=== PATIENT | male | born 1950 | race Caucasian/White ===

== ENCOUNTER 2018-01-29 12:51 | Inpatient (IN) | payer MEDICARE, MEDICAID ==
[~2018-01-29] VITALS: Ht 175.3 cm; Wt 77.6 kg
[2018-01-29] VITALS (33 sets, daily range): BP systolic 119–170; BP diastolic 68–98
[2018-01-29] MEDS ORDERED: MIDAZOLAM HCL 5 MG/ML-1ML VIAL ONE (12:59)
[2018-01-29] MEDS ORDERED: SODIUM CHLORIDE 0.9% 1,000 ML IV ONE (13:01)
[2018-01-29] MEDS ORDERED: PROPOFOL 100 ML IV ONE (13:10)
[2018-01-29] MEDS: PROPOFOL 100 ML IV SCH ×2 (13:14→22:15)
[2018-01-29 13:33] LABS: Basophils # (auto) 0 uL; Basophils % (auto) 0.2 % (0.0-2.0); Eosinophils # (auto) 0 uL; Eosinophils % (auto) 0.2 % (0.0-7.0); Hematocrit 48.4 % (41.0-53.0); Hemoglobin 16.1 g/dL (13.5-17.5); Lymphocytes # (auto) 1.7 uL; Lymphocytes % (auto) 15.9 % (10.0-50.0); Mean Corpuscular Hemoglobin 32.4 pg (28.0-32.0); Mean Corpuscular Hgb Conc. 33.3 g/dL (32.0-36.0); Mean Corpuscular Volume 97.3 fL (80.0-100.0); Monocytes # (auto) 0.7 uL; Monocytes % (auto) 6.9 % (0.0-12.0); Neutrophils # (auto) 8.1 uL; Neutrophils % (auto) 76.8 % (37.0-80.0); Nucleated Red Blood Cells % 0.2 %; Platelet Count (auto) 285 10^3/uL (140-450); Red Blood Cells 4.97 10^6/uL (4.5-5.90); Red Cell Distribution Width 16.1 % (11.8-14.3); White Blood Cell 10.6 10^3/uL (4.4-10.8)
[2018-01-29 13:56] LABS: Albumin 3.8 g/dL (3.4-5.0); Anion Gap 13 (5-15); Blood Urea Nitrogen 57 mg/dL (7-18); Calcium 9.2 mg/dL (8.5-10.1); Carbon Dioxide 33 mmol/L (21-32); Chloride 91 mmol/L (98-107); Glucose 126 mg/dL (74-106); Magnesium 3.5 mg/dL (1.6-2.6); Potassium 5.1 mmol/L (3.5-5.1); Sodium 137 mmol/L (136-145)
[2018-01-29 14:08] LABS: Alanine Aminotransferase 15 U/L (16-61); Alkaline Phosphatase 133 U/L (45-117); Aspartate Aminotransferase < 3 U/L (15-37); Bilirubin, Total 0.6 mg/dL (0.2-1.0); GFR African American 7 mL/min; GFR Non-African American 6 mL/min; Total Protein 8.1 g/dL (6.4-8.2)
[2018-01-29] MEDS ORDERED: MIDAZOLAM HCL 5 MG/ML-1ML VIAL IV ONE ×2 (15:38→15:45)
[2018-01-29] MEDS ORDERED: ALBUTEROL SULF 2.5 MG/0.5ML(0.5%) NEB SOLN NEB PRN (15:45)
[2018-01-29] MEDS ORDERED: LABETALOL HCL 5 MG/ML ML 20ML VIAL IV PRN (15:45)
[2018-01-29] MEDS ORDERED: LORazepam 2MG/ML-1ML VIAL IV PRN (15:45)
[2018-01-29] MEDS ORDERED: MORPHINE SULFATE 4 MG/ML SYR/VIAL IV PRN ×3 (15:45)
[2018-01-29] MEDS ORDERED: NITROGLYCERIN 0.4 MG SL TAB SL PRN (15:45)
[2018-01-29] MEDS ORDERED: DEXTROSE (50%) 50ML SYRG IV PRN (15:45)
[2018-01-29] MEDS: METOPROLOL TARTRATE 25 MG TAB NG SCH ×2 (15:45→22:15)
[2018-01-29] MEDS ORDERED: SODIUM CHL 0.9% 1000 ML BAG XX ONE (16:30)
[2018-01-29 16:35] LABS: INR 0.93 (0.9-1.15); Partial Thromboplastin Time 27.4 sec (23.78-33.04)
[2018-01-29 17:03] LABS: CRP High Sensitivity 2.96 mg/dL (< 0.3)
[2018-01-29] MEDS: InsuLIN REG 1unit/0.01ml Soln (100units/ml) SC SCH (18:00)
[2018-01-29] MEDS: IPRATROPIUM BROM 0.5 MG/2.5ML INH SOL NEB SCH (18:13)
[2018-01-29] MEDS: ALBUTEROL SULF 2.5 MG/0.5ML(0.5%) NEB SOLN NEB SCH (18:13)
[2018-01-29] MEDS ORDERED: VANCOMYCIN PER PHARMACY 0 MG IV SCH (20:00)
[2018-01-29] MEDS ORDERED: PIPERACILLIN-TAZOB 2.25GM 50 ML IV ONE (20:00)
[2018-01-29] MEDS: ACCU-CHEK COMFORT CURVE STRIP VI SCH (20:23)
[2018-01-29] MEDS ORDERED: CLINDAMYCIN 600MG IV 50 ML IV SCH (22:00)
[2018-01-29] MEDS ORDERED: VANCOMYCIN 1GM/250ML 250 ML IV ONE (22:00)
[2018-01-29] MEDS: ATORVASTATIN 20 MG TAB NG SCH (22:15)
[2018-01-30] VITALS (103 sets, daily range): BP systolic 105–159; BP diastolic 46–114
[2018-01-30] MEDS: IPRATROPIUM BROM 0.5 MG/2.5ML INH SOL NEB SCH ×4 (00:20→18:36)
[2018-01-30] MEDS: ALBUTEROL SULF 2.5 MG/0.5ML(0.5%) NEB SOLN NEB SCH ×4 (00:20→18:36)
[2018-01-30] MEDS: InsuLIN REG 1unit/0.01ml Soln (100units/ml) SC SCH ×4 (00:27→18:03)
[2018-01-30] MEDS: ACCU-CHEK COMFORT CURVE STRIP VI SCH ×4 (00:27→18:03)
[2018-01-30 04:11] LABS: Basophils # (auto) 0 uL; Basophils % (auto) 0.3 % (0.0-2.0); Eosinophils # (auto) 0.1 uL; Eosinophils % (auto) 1.2 % (0.0-7.0); Hematocrit 44.6 % (41.0-53.0); Hemoglobin 15.1 g/dL (13.5-17.5); Lymphocytes # (auto) 1.3 uL; Lymphocytes % (auto) 14.9 % (10.0-50.0); Mean Corpuscular Hemoglobin 33.1 pg (28.0-32.0); Mean Corpuscular Hgb Conc. 33.8 g/dL (32.0-36.0); Mean Corpuscular Volume 97.8 fL (80.0-100.0); Monocytes # (auto) 0.9 uL; Monocytes % (auto) 10.5 % (0.0-12.0); Neutrophils # (auto) 6.5 uL; Neutrophils % (auto) 73.1 % (37.0-80.0); Platelet Count (auto) 237 10^3/uL (140-450); Red Blood Cells 4.56 10^6/uL (4.5-5.90); Red Cell Distribution Width 16.6 % (11.8-14.3); White Blood Cell 8.9 10^3/uL (4.4-10.8)
[2018-01-30 04:31] LABS: Potassium 4.7 mmol/L (3.5-5.1)
[2018-01-30 04:40] LABS: Albumin 3.1 g/dL (3.4-5.0); BUN/Creatinine Ratio 6.1; Bilirubin, Total 0.7 mg/dL (0.2-1.0); Calcium 8.9 mg/dL (8.5-10.1); Total Protein 7.3 g/dL (6.4-8.2)
[2018-01-30] MEDS ORDERED: PIPERACILLIN-TAZOB 0.75 GM in D5W 5% 50 ML IV PRN (09:15)
[2018-01-30] MEDS ORDERED: NITROGLYCERIN 0.2MG/HR TOPICAL PATCH TD SCH (10:00)
[2018-01-30] MEDS ORDERED: AZITHROMYCIN 500MG/ 250ML 250 ML IV SCH (10:00)
[2018-01-30] MEDS: METOPROLOL TARTRATE 25 MG TAB NG SCH ×2 (10:00→21:31)
[2018-01-30] MEDS ORDERED: B-CO1CAP6 PO (10:56)
[2018-01-30] MEDS ORDERED: MIDO5TAB PO (10:56)
[2018-01-30] MEDS ORDERED: SERT-274 PO (10:56)
[2018-01-30] MEDS ORDERED: SEVE800T8 PO ×2 (10:57)
[2018-01-30] MEDS: PIPERACILLIN-TAZOB 2.25GM 50 ML IV SCH (12:00)
[2018-01-30] MEDS: ENOXAPARIN SOD 30 MG/0.3 ML SYRINGE SC SCH (12:33)
[2018-01-30] MEDS: ASPirin 81 mg TAB NG SCH (12:33)
[2018-01-30] MEDS: PANTOPRAZOLE 40 MG/10 ML VIAL IV SCH (12:33)
[2018-01-30] MEDS ORDERED: VANCOMYCIN 750 MG in D5W 5% 250 ML IV ONE (13:30)
[2018-01-30] MEDS ORDERED: Nepro With Carb Steady 1 Liter Bottle GT SCH (13:45)
[2018-01-30] MEDS: ATORVASTATIN 20 MG TAB NG SCH (21:31)
[2018-01-31] VITALS (102 sets, daily range): BP systolic 78–134; BP diastolic 35–78
[2018-01-31] MEDS: IPRATROPIUM BROM 0.5 MG/2.5ML INH SOL NEB SCH ×4 (00:21→18:21)
[2018-01-31] MEDS: ALBUTEROL SULF 2.5 MG/0.5ML(0.5%) NEB SOLN NEB SCH ×4 (00:21→18:21)
[2018-01-31] MEDS: PIPERACILLIN-TAZOB 2.25GM 50 ML IV SCH ×2 (00:22→12:37)
[2018-01-31] MEDS: InsuLIN REG 1unit/0.01ml Soln (100units/ml) SC SCH ×4 (00:22→18:00)
[2018-01-31] MEDS: ACCU-CHEK COMFORT CURVE STRIP VI SCH ×4 (00:22→18:00)
[2018-01-31 03:55] LABS: Basophils # (auto) 0 uL; Basophils % (auto) 0.4 % (0.0-2.0); Eosinophils # (auto) 0 uL; Eosinophils % (auto) 0.1 % (0.0-7.0); Hematocrit 44.1 % (41.0-53.0); Hemoglobin 14.8 g/dL (13.5-17.5); Lymphocytes % (auto) 9.6 % (10.0-50.0); Mean Corpuscular Hemoglobin 32.6 pg (28.0-32.0); Mean Corpuscular Hgb Conc. 33.4 g/dL (32.0-36.0); Mean Corpuscular Volume 97.5 fL (80.0-100.0); Monocytes # (auto) 0.8 uL; Monocytes % (auto) 8.3 % (0.0-12.0); Neutrophils # (auto) 8.3 uL; Neutrophils % (auto) 81.6 % (37.0-80.0); Platelet Count (auto) 180 10^3/uL (140-450); Red Blood Cells 4.53 10^6/uL (4.5-5.90); Red Cell Distribution Width 16.5 % (11.8-14.3); White Blood Cell 10.2 10^3/uL (4.4-10.8)
[2018-01-31 04:12] LABS: BUN/Creatinine Ratio 5.3; Calcium 8.7 mg/dL (8.5-10.1); Potassium 4.7 mmol/L (3.5-5.1)
[2018-01-31] MEDS: PROPOFOL 100 ML IV SCH ×2 (04:30→17:29)
[2018-01-31] MEDS: ENOXAPARIN SOD 30 MG/0.3 ML SYRINGE SC SCH (10:00)
[2018-01-31] MEDS: ASPirin 81 mg TAB NG SCH (10:00)
[2018-01-31] MEDS: METOPROLOL TARTRATE 25 MG TAB NG SCH (10:00)
[2018-01-31] MEDS: PANTOPRAZOLE 40 MG/10 ML VIAL IV SCH (10:50)
[2018-01-31] MEDS: ATORVASTATIN 20 MG TAB NG SCH (22:19)
[2018-02-01] VITALS (75 sets, daily range): BP systolic 89–162; BP diastolic 28–103
[2018-02-01] MEDS: ALBUTEROL SULF 2.5 MG/0.5ML(0.5%) NEB SOLN NEB SCH ×3 (00:25→18:50)
[2018-02-01] MEDS: IPRATROPIUM BROM 0.5 MG/2.5ML INH SOL NEB SCH ×3 (00:25→18:50)
[2018-02-01] MEDS: PIPERACILLIN-TAZOB 2.25GM 50 ML IV SCH ×2 (00:35→12:04)
[2018-02-01] MEDS: InsuLIN REG 1unit/0.01ml Soln (100units/ml) SC SCH ×4 (00:45→18:00)
[2018-02-01] MEDS: ACCU-CHEK COMFORT CURVE STRIP VI SCH ×4 (00:45→18:00)
[2018-02-01 05:02] LABS: Calcium 8.5 mg/dL (8.5-10.1)
[2018-02-01 05:04] LABS: BUN/Creatinine Ratio 6.2
[2018-02-01] MEDS: PANTOPRAZOLE 40 MG/10 ML VIAL IV SCH (10:29)
[2018-02-01] MEDS: ASPirin 81 mg TAB NG SCH (10:30)
[2018-02-01] MEDS: ENOXAPARIN SOD 30 MG/0.3 ML SYRINGE SC SCH (10:30)
[2018-02-01] MEDS ORDERED: SODIUM CHL 0.9% 1000 ML BAG XX ONE (11:00)
[2018-02-01] MEDS ORDERED: EPOETIN ALFA 10,000 UNIT/1 ML VIAL IV ONE (11:00)
[2018-02-01] MEDS ORDERED: SERTRALINE HCL 50 MG TAB PO SCH ×2 (14:30→22:00)
[2018-02-01] MEDS: ATORVASTATIN 20 MG TAB NG SCH (21:38)
[2018-02-02] VITALS (71 sets, daily range): BP systolic 84–156; BP diastolic 25–94
[2018-02-02] MEDS: ALBUTEROL SULF 2.5 MG/0.5ML(0.5%) NEB SOLN NEB SCH ×4 (00:34→19:47)
[2018-02-02] MEDS: IPRATROPIUM BROM 0.5 MG/2.5ML INH SOL NEB SCH ×4 (00:34→19:47)
[2018-02-02 04:16] LABS: Basophils # (auto) 0 uL; Basophils % (auto) 0.5 % (0.0-2.0); Eosinophils # (auto) 0.1 uL; Eosinophils % (auto) 1.5 % (0.0-7.0); Lymphocytes # (auto) 1.2 uL; Lymphocytes % (auto) 14.3 % (10.0-50.0); Mean Corpuscular Hemoglobin 32.6 pg (28.0-32.0); Mean Corpuscular Hgb Conc. 33.3 g/dL (32.0-36.0); Mean Corpuscular Volume 97.8 fL (80.0-100.0); Monocytes # (auto) 0.8 uL; Monocytes % (auto) 9.5 % (0.0-12.0); Neutrophils # (auto) 6.1 uL; Neutrophils % (auto) 74.2 % (37.0-80.0); Platelet Count (auto) 185 10^3/uL (140-450); Red Blood Cells 4.29 10^6/uL (4.5-5.90); Red Cell Distribution Width 16.2 % (11.8-14.3); White Blood Cell 8.2 10^3/uL (4.4-10.8)
[2018-02-02 04:33] LABS: Calcium 9.3 mg/dL (8.5-10.1); Potassium 4.4 mmol/L (3.5-5.1)
[2018-02-02 04:35] LABS: BUN/Creatinine Ratio 6.2
[2018-02-02] MEDS: InsuLIN REG 1unit/0.01ml Soln (100units/ml) SC SCH ×4 (05:47→17:38)
[2018-02-02] MEDS: ACCU-CHEK COMFORT CURVE STRIP VI SCH ×4 (05:47→17:37)
[2018-02-02] MEDS: ASPirin 81 mg TAB NG SCH (10:00)
[2018-02-02] MEDS: ENOXAPARIN SOD 30 MG/0.3 ML SYRINGE SC SCH (10:00)
[2018-02-02] MEDS: PANTOPRAZOLE 40 MG/10 ML VIAL IV SCH (10:41)
[2018-02-02] MEDS: PIPERACILLIN-TAZOB 2.25GM 50 ML IV SCH ×2 (12:00)
[2018-02-02] MEDS: SERTRALINE HCL 50 MG TAB PO SCH (21:58)
[2018-02-02] MEDS: ATORVASTATIN 20 MG TAB NG SCH (21:58)
[2018-02-03] VITALS (14 sets, daily range): BP systolic 81–154; BP diastolic 41–104
[2018-02-03] MEDS: PIPERACILLIN-TAZOB 2.25GM 50 ML IV SCH
[2018-02-03] MEDS: ALBUTEROL SULF 2.5 MG/0.5ML(0.5%) NEB SOLN NEB SCH ×4 (00:48→19:36)
[2018-02-03] MEDS: IPRATROPIUM BROM 0.5 MG/2.5ML INH SOL NEB SCH ×4 (00:48→19:36)
[2018-02-03 04:51] LABS: BUN/Creatinine Ratio 7.6; Calcium 8.4 mg/dL (8.5-10.1)
[2018-02-03] MEDS: InsuLIN REG 1unit/0.01ml Soln (100units/ml) SC SCH ×2 (05:34)
[2018-02-03] MEDS: ACCU-CHEK COMFORT CURVE STRIP VI SCH ×2 (05:35)
[2018-02-03] MEDS: ENOXAPARIN SOD 30 MG/0.3 ML SYRINGE SC SCH (09:52)
[2018-02-03] MEDS: ASPirin 81 mg TAB NG SCH (09:52)
[2018-02-03] MEDS: PANTOPRAZOLE 40 MG/10 ML VIAL IV SCH (09:52)
[2018-02-03] MEDS ORDERED: SERTRALINE HCL 50 MG TAB PO ONE (10:00)
[2018-02-03] MEDS ORDERED: LEVOFLOXACIN 500 MG TAB PO ONE (12:30)
[2018-02-03] MEDS: ATORVASTATIN 20 MG TAB NG SCH (22:00)
[2018-02-03] MEDS: SERTRALINE HCL 50 MG TAB PO SCH (22:00)
[2018-02-04] MEDS: IPRATROPIUM BROM 0.5 MG/2.5ML INH SOL NEB SCH ×3 (00:24→12:22)
[2018-02-04] MEDS: ALBUTEROL SULF 2.5 MG/0.5ML(0.5%) NEB SOLN NEB SCH ×3 (00:24→12:22)
[2018-02-04 05:00] VITALS: BP 127/64
[2018-02-04] MEDS ORDERED: SODIUM CHL 0.9% 1000 ML BAG XX ONE (08:00)
[2018-02-04 09:00] VITALS: BP 166/83
[2018-02-04 09:54] VITALS: BP 162/81
[2018-02-04] MEDS ORDERED: LEVOFLOXACIN 250 MG TAB PO SCH (10:00)
[2018-02-04] MEDS: ASPirin 81 mg TAB NG SCH (10:59)
[2018-02-04 13:00] VITALS: BP 124/67
[2018-02-04 15:59] VITALS: BP 110/81
[2018-02-04 17:50] VITALS: BP 110/81
== END 2018-02-04 18:05 | disposition home or self-care (01) | DRG 208 ==
LOC: ER 12:56 → EDBD 12:56 → OVERFLOW 15:40 → ICU WEST 16:52 → TELE-WESTW 02-03 05:00
PROVIDERS: ADMIT Internal Medicine; ATTEND Internal Medicine
PROC: 0BH17EZ Insertion of Endotracheal Airway into Trachea, Via Natural or Artificial Opening (ICD-10-PCS; principal; 2018-01-29)
PROC: 5A1945Z Respiratory Ventilation, 24-96 Consecutive Hours (ICD-10-PCS; 2018-01-29)
PROC: 5A1D70Z Performance of Urinary Filtration, Intermittent, Less than 6 Hours Per Day (ICD-10-PCS; 2018-01-30)
PROC: 5A1D70Z Performance of Urinary Filtration, Intermittent, Less than 6 Hours Per Day (ICD-10-PCS; 2018-02-01)
PROC: 5A1D70Z Performance of Urinary Filtration, Intermittent, Less than 6 Hours Per Day (ICD-10-PCS; 2018-02-04)
DX: J96.00 Acute respiratory failure, unspecified whether with hypoxia or hypercapnia (principal); J18.9 Pneumonia, unspecified organism; N18.6 End stage renal disease; G92 Toxic encephalopathy; J15.6 Pneumonia due to other Gram-negative bacteria; G93.1 Anoxic brain damage, not elsewhere classified; I13.11 Hypertensive heart and chronic kidney disease without heart failure, with stage 5 chronic kidney disease, or end stage renal disease; E87.5 Hyperkalemia; Z99.2 Dependence on renal dialysis; I16.0 Hypertensive urgency; E11.22 Type 2 diabetes mellitus with diabetic chronic kidney disease; E11.40 Type 2 diabetes mellitus with diabetic neuropathy, unspecified; F03.90 Unspecified dementia, unspecified severity, without behavioral disturbance, psychotic disturbance, mood disturbance, and anxiety; Z80.0 Family history of malignant neoplasm of digestive organs; Z80.1 Family history of malignant neoplasm of trachea, bronchus and lung; Z80.42 Family history of malignant neoplasm of prostate; Z80.7 Family history of other malignant neoplasms of lymphoid, hematopoietic and related tissues; Z82.49 Family history of ischemic heart disease and other diseases of the circulatory system; Z86.74 Personal history of sudden cardiac arrest; Z83.3 Family history of diabetes mellitus; Z89.022 Acquired absence of left finger(s); Z89.021 Acquired absence of right finger(s)
CPT/HCPCS: 36415; 36600; 70450; 71045; 71046; 80048; 80053; 80061; 80202; 82550; 82805; 82962; 83036; 83735; 83880; 84443; 84484; 85025; 85610; 85652; 85730; 86141; 87040; 87070; 87077; 87081; 87186; 87205; 87804; 90935; 93005; 94002; 94003; 94640; 95819; 96365; 96367; 96375; 97163; A4565; A6257; C9113; G0378; J0885; J1642; J1815; J2250; J2543; J2704; J7060

== ENCOUNTER 2019-03-21 14:01 | Emergency (ER) | payer MEDICARE, MEDICAID ==
[~2019-03-21] VITALS: Ht 170.2 cm; Wt 77.1 kg
[~2019-03-21 14:01] MED LIST: B-CO1CAP6 PO; MIDO5TAB2 PO; SERT-274 PO; SEVE800T8 PO
[2019-03-21 14:09] VITALS: BP 134/76
== END 2019-03-21 17:52 | disposition home or self-care (01) ==
LOC: EDBD 14:01 → EDUNIT# 14:01 → ER 14:01
DX: S01.81XA Laceration without foreign body of other part of head, initial encounter (principal); S80.212A Abrasion, left knee, initial encounter; W01.0XXA Fall on same level from slipping, tripping and stumbling without subsequent striking against object, initial encounter; Y93.89 Activity, other specified; Y92.89 Other specified places as the place of occurrence of the external cause; Y99.8 Other external cause status
CPT/HCPCS: 12013; 70450; 93005

== ENCOUNTER 2019-07-09 12:45 | Inpatient (IN) | payer MEDICARE, MEDICAID, SELFPAY ==
[~2019-07-09] VITALS: Ht 170.2 cm; Wt 77.1 kg
[~2019-07-09 12:45] MED LIST changes: +AML5T PO; +CAR125T PO; +CLO01T PO; -MIDO5TAB2 PO
[2019-07-09 13:48] LABS: Basophils # (auto) 0 10 ^3/uL (0-0.2); Basophils % (auto) 0.5 % (0.0-2.0); Eosinophils # (auto) 0.1 10 ^3/uL (0-0.8); Eosinophils % (auto) 0.9 % (0.0-7.0); Hematocrit 33.5 % (41.0-53.0); Hemoglobin 11.7 g/dL (13.5-17.5); Lymphocytes # (auto) 0.9 10 ^3/uL (0.4-5.4); Lymphocytes % (auto) 10.5 % (10.0-50.0); Mean Corpuscular Hemoglobin 32.5 pg (28.0-32.0); Mean Corpuscular Hgb Conc. 34.9 g/dL (32.0-36.0); Mean Corpuscular Volume 93.3 fL (80.0-100.0); Monocytes # (auto) 0.5 10 ^3/uL (0-1.3); Monocytes % (auto) 5.6 % (0.0-12.0); Neutrophils % (auto) 82.5 % (37.0-80.0); Platelet Count (auto) 193 10^3/uL (140-450); Red Blood Cells 3.59 10^6/uL (4.5-5.90); White Blood Cell 8.5 10^3/uL (4.4-10.8)
[2019-07-09] MEDS ORDERED: FUROSEMIDE 40 MG/4 ML VIAL IV ONE (14:00)
[2019-07-09 14:05] LABS: Albumin 3.9 g/dL (3.4-5.0); Anion Gap 8 (5-15); Blood Urea Nitrogen 35 mg/dL (7-18); Calcium 9.3 mg/dL (8.5-10.1); Carbon Dioxide 31 mmol/L (21-32); Chloride 95 mmol/L (98-107); Glucose 110 mg/dL (74-106); Magnesium 2.4 mg/dL (1.6-2.6); Potassium 4.1 mmol/L (3.5-5.1); Sodium 134 mmol/L (136-145)
[2019-07-09 14:11] LABS: Alanine Aminotransferase 13 U/L (16-61); Alkaline Phosphatase 76 U/L (45-117); Aspartate Aminotransferase 7 U/L (15-37); BUN/Creatinine Ratio 6.2; Bilirubin, Total 0.6 mg/dL (0.2-1.0); GFR African American 13 mL/min; GFR Non-African American 11 mL/min; Total Protein 7.6 g/dL (6.4-8.2)
[2019-07-09] MEDS ORDERED: LACTULOSE 20Gm/30ML SOLN PO PRN (14:30)
[2019-07-09] MEDS ORDERED: MORPHINE SULF INJ 2 MG/ML SYRINGE 1ML IV PRN (14:30)
[2019-07-09] MEDS ORDERED: PROMETHAZINE HCL 25 MG/ML 1ML IV PRN (14:30)
[2019-07-09] MEDS ORDERED: ALBUTEROL SULF 2.5 MG/0.5ML(0.5%) NEB SOLN NEB PRN (14:30)
[2019-07-09] MEDS ORDERED: traMADol HCL 50 MG TAB PO PRN (14:30)
[2019-07-09] MEDS ORDERED: ACETAMINOPHEN 500 MG TAB PO PRN (14:30)
[2019-07-09] MEDS ORDERED: DEXTROSE (50%) 50ML SYRG IV PRN (14:30)
[2019-07-09] MEDS ORDERED: NITROGLYCERIN 0.4 MG SL TAB SL PRN (14:30)
--- NOTE | 2019-07-09 15:30 | NUR ---
Telemetry admit from [facility] admitted to Telemetry unit. Patient oriented to SONIA HILL RN primary RN, unit, room, bed, and unit policies regarding patient care and visiting hours. Patient now on continuous telemetry monitoring, tele box #2. Patient placed on bedside oxygen, weighed by bedscale and encouraged to call if they need something. All questions and concerns addressed, patient verbalized understanding.
--- NOTE | 2019-07-09 16:12 | NUR ---
Vitals BP upon arrival was 176/82. Called Hospitalist operations agent and obtained order for hydralazine 10 mg IV q6h PRN for SBP >140 or DBP .90. Orders read back and verified. Will carry out new orders and cont to monitor patient.
[2019-07-09] MEDS: hydrALAZINE HCL 20 MG/ML VL IV PRN (16:26)
[2019-07-09 17:00] VITALS: BP 154/74
[2019-07-09] MEDS: InsuLIN REG 1unit/0.01ml Soln (100units/ml) SC SCH ×2 (17:00→21:53)
[2019-07-09] MEDS: ACCU-CHEK COMFORT CURVE STRIP VI SCH ×2 (17:00→21:15)
[2019-07-09 17:33] VITALS: BP 176/82
[2019-07-09] MEDS ORDERED: CITA10TA59 PO (17:59)
[2019-07-09] MEDS ORDERED: IPRATROPIUM BROM 0.5 MG/2.5ML INH SOL NEB SCH (18:00)
[2019-07-09] MEDS ORDERED: ALBUTEROL SULF 2.5 MG/0.5ML(0.5%) NEB SOLN NEB SCH (18:00)
--- NOTE | 2019-07-09 18:45 | NUR ---
MRSA Swab Patient swabbed for MRSA. Swab sent to lab
[2019-07-09] MEDS: FUROSEMIDE 40 MG/4 ML VIAL IV SCH (18:48)
[2019-07-09] MEDS: SEVELAMER 800 MG TAB PO SCH (18:48)
--- NOTE | 2019-07-09 18:51 | NUR ---
Blood Glucose Patient's 1700 BS was 69, gave patient orange juice, recheck at 1830 was 91. Patient resting in bed, no distress noted, Eating dinner at this time.
--- NOTE | 2019-07-09 19:00 | NUR ---
Patient experiencing SOB, NC not on, Placed NC on and Checked O2 Sat and patient sating at 88. Increased oxygen from 2 to 5L. Patient O2 sat now at 95%. Endorsed care to night SHAGUFTA Corley.
--- NOTE | 2019-07-09 19:26 | NUR ---
Opening Shift Note Assumed care of patient, awake and alert. No S/S of distress/SOB or pain. Bed is in lowest position and locked. Call light within reach. Board updated. Tele box number matches monitor and leads are in correct placement. Instructed on POC and to call for assist PRN, will continue to monitor for changes Q1hr and PRN.
--- NOTE | 2019-07-09 19:38 | NUR ---
Spoke to MD Gaines regarding elevated BP, tachycardia, SOB, and audible wheezing on expiration. BP is 219/116, HR: 104. Orders received: Metoprolol Succinate 50 mg PO Once, Furosemide 80 mg IV once. Orders received, verified, and placed.
[2019-07-09] MEDS ORDERED: METOPROLOL SUCCINATE XL 50 MG TAB PO ONE (19:45)
[2019-07-09] MEDS ORDERED: FUROSEMIDE 100 MG/10ML VIAL IV ONE (19:45)
[2019-07-09 21:00] VITALS: BP 174/110
[2019-07-09] MEDS: SODIUM CHLOR 0.9% PF (SALINE LOCK) 10ML VIAL/SYR IV SCH (21:13)
[2019-07-09] MEDS: FAMOTIDINE 20 MG TAB PO SCH (21:14)
[2019-07-09] MEDS: cloNIDine HCL 0.1 MG TAB PO SCH (21:14)
[2019-07-09] MEDS: CARVEDILOL 12.5 MG TAB PO SCH (21:14)
[2019-07-09] MEDS: TEMAZEPAM 15 MG CAP PO PRN (21:15)
[2019-07-09] MEDS ORDERED: ALBUTEROL SULF HFA 90MCG INH 200DOSE IN SCH (22:00)
[2019-07-10] VITALS: BP 135/73
[2019-07-10 05:00] VITALS: BP 164/82
[2019-07-10] MEDS: FUROSEMIDE 40 MG/4 ML VIAL IV SCH (06:00)
[2019-07-10] MEDS: SODIUM CHLOR 0.9% PF (SALINE LOCK) 10ML VIAL/SYR IV SCH ×3 (06:00→22:20)
[2019-07-10] MEDS: ACCU-CHEK COMFORT CURVE STRIP VI SCH ×4 (06:00→22:22)
[2019-07-10] MEDS: hydrALAZINE HCL 20 MG/ML VL IV PRN (06:01)
[2019-07-10] MEDS: InsuLIN REG 1unit/0.01ml Soln (100units/ml) SC SCH ×4 (06:44→22:22)
[2019-07-10 06:54] LABS: Potassium 5.4 mmol/L (3.5-5.1)
[2019-07-10 07:00] LABS: Albumin 3.5 g/dL (3.4-5.0); BUN/Creatinine Ratio 6.7; Bilirubin, Total 0.8 mg/dL (0.2-1.0); Calcium 9.4 mg/dL (8.5-10.1)
--- NOTE | 2019-07-10 07:30 | NUR ---
Opening Shift Note RECEIVED REPORT FROM NOC RN. Assumed care of patient, awake and alert. PATIENT ON OXYGEN AT 6 LPM VIA NON-REBREATHER WITH no S/S of distress/SOB or pain. BED IN LOWEST, LOCKED POSITION WITH SIDERAILS UP x2 AND CALL LIGHT WITHIN REACH. Instructed on POC and to call for assist PRN, will continue to monitor for changes Q1hr and PRN.
[2019-07-10] MEDS: SEVELAMER 800 MG TAB PO SCH ×3 (08:28→19:07)
[2019-07-10] MEDS ORDERED: cefTRIAXone 1GM/50ML D5W 50 ML IV SCH (09:00)
[2019-07-10 09:11] VITALS: BP 163/81
[2019-07-10] MEDS ORDERED: ENOXAPARIN SOD 30 MG/0.3 ML SYRINGE SC SCH (10:00)
[2019-07-10] MEDS ORDERED: AZITHROMYCIN 500MG/ 250ML 250 ML IV SCH (10:00)
[2019-07-10] MEDS: ENALAPRIL MALEATE 2.5 MG TAB PO SCH (10:06)
[2019-07-10] MEDS: B-COMPLEX W/ C & FOLIC ACID(NEPHROVITE TAB) PO SCH (10:06)
[2019-07-10] MEDS: cloNIDine HCL 0.1 MG TAB PO SCH ×2 (10:06→22:21)
[2019-07-10] MEDS: ASPirin 81 mg TAB PO SCH (10:06)
[2019-07-10] MEDS: CARVEDILOL 12.5 MG TAB PO SCH ×2 (10:06→22:00)
[2019-07-10] MEDS: SERTRALINE HCL 50 MG TAB PO SCH (10:07)
[2019-07-10] MEDS: amLODIPine BESYLATE 5 MG TAB PO SCH (10:07)
[2019-07-10] MEDS ORDERED: SODIUM CHL 0.9% 1000 ML BAG XX ONE (13:30)
[2019-07-10] MEDS ORDERED: predniSONE 20 MG TAB PO ONE (15:30)
[2019-07-10 15:37] VITALS: BP 144/86
[2019-07-10 18:00] VITALS: BP 121/64
--- NOTE | 2019-07-10 19:36 | NUR ---
Opening Shift Note Assumed care of patient, awake and alert. No S/S of distress/SOB or pain. Bed is in lowest position and locked. Call light within reach. Board updated. Patient on 5 l/min NC with humidifier. Tele box number matches monitor and leads are in correct placement. Instructed on POC and to call for assist PRN, will continue to monitor for changes Q1hr and PRN.
[2019-07-10 21:00] VITALS: BP 137/109
[2019-07-10] MEDS: ALBUTEROL SULF HFA 90MCG INH 200DOSE IN SCH (22:20)
[2019-07-10] MEDS: PIPERACILLIN-TAZOB 2.25GM 50 ML IV SCH (22:20)
[2019-07-10] MEDS: FAMOTIDINE 20 MG TAB PO SCH (22:21)
[2019-07-10] MEDS: TEMAZEPAM 15 MG CAP PO PRN (22:23)
[2019-07-11] VITALS (8 sets, daily range): BP systolic 130–150; BP diastolic 64–77
[2019-07-11] MEDS: SODIUM CHLOR 0.9% PF (SALINE LOCK) 10ML VIAL/SYR IV SCH ×3 (06:12→22:33)
[2019-07-11] MEDS: ALBUTEROL SULF HFA 90MCG INH 200DOSE IN SCH ×3 (06:12→23:00)
[2019-07-11] MEDS: cloNIDine HCL 0.1 MG TAB PO SCH ×4 (06:13→22:34)
[2019-07-11] MEDS: ACCU-CHEK COMFORT CURVE STRIP VI SCH ×4 (06:13→22:00)
[2019-07-11] MEDS: InsuLIN REG 1unit/0.01ml Soln (100units/ml) SC SCH ×4 (06:33→23:00)
--- NOTE | 2019-07-11 07:09 | NUR ---
Respiratory note: HR 64, RR 16, SPO2 99% ON 5 L NC. BS CLEAR.ALBUTEROL INHALER ADMINISTERED BY RN. NO SIGNS OR SYMPTOMS OF RESPIRATORY DISTRESS NOTED AT THIS TIME.
[2019-07-11] MEDS: SEVELAMER 800 MG TAB PO SCH ×3 (08:20→18:25)
[2019-07-11] MEDS: CARVEDILOL 12.5 MG TAB PO SCH ×2 (08:51→22:35)
[2019-07-11] MEDS: ASPirin 81 mg TAB PO SCH (09:13)
[2019-07-11] MEDS: PIPERACILLIN-TAZOB 2.25GM 50 ML IV SCH ×2 (09:13→22:33)
[2019-07-11] MEDS: predniSONE 20 MG TAB PO SCH (09:13)
[2019-07-11] MEDS: B-COMPLEX W/ C & FOLIC ACID(NEPHROVITE TAB) PO SCH (09:15)
[2019-07-11] MEDS: amLODIPine BESYLATE 5 MG TAB PO SCH (09:16)
[2019-07-11] MEDS: ENALAPRIL MALEATE 2.5 MG TAB PO SCH (09:17)
[2019-07-11] MEDS: SERTRALINE HCL 50 MG TAB PO SCH (09:17)
--- NOTE | 2019-07-11 11:10 | NUR ---
Received call from propellant charge loader Laura patient Covid results are negative.
--- NOTE | 2019-07-11 11:15 | NUR ---
Received phone call from [facility] patient to be transferred to [place].
--- NOTE | 2019-07-11 12:45 | NUR ---
Patient transferred to 218A on central unit. Report given to Jacqueline EAGLE. Care endorsed to Jacqueline. 1200 Sevelamer endorsed to Jacqueline d/t patient hasn't received lunch tray yet.
--- NOTE | 2019-07-11 13:00 | NUR ---
Patient moved to room 215 A after Covid results negative, patient is stable at this time with no complaints of pain or SOB. Gave patient lunch and took vitals that are WNL. Patient is oriented to unit, nurse and room. Bed is locked, in the lowest position, with 2 side rails up and the call light with in reach. Educated to use call light when in need of any assistance. Will continue to monitor for any changes in condition.
--- NOTE | 2019-07-11 14:30 | NUR ---
Respiratory note: PT HAS MOVED TO CENTRAL UNIT. HR 65, RR 18, SPO2 97% ON 5 L NC, BS CLEAR. ALBUTEROL INHALER GIVEN BY RN. NO SIGNS OR SYMPTOMS OF RESPIRATORY DISTRESS NOTED.
--- NOTE | 2019-07-11 16:05 | NUR ---
IV Insertion Inserted new IV to Right Forearm 22 gauge. Discontinued IV site to Right hand as it was leaking. Patient tolerated well and is now resting comfortably at this time
--- NOTE | 2019-07-11 19:10 | NUR ---
Opening Shift Note Assumed care of patient, awake and alert. No S/S of distress/SOB or pain. Instructed on POC and to call for assist PRN, will continue to monitor for changes Q1hr and PRN. DID TRANSFER OF CARE AT BEDSIDE WITH DAY SHIFT NURSE, PATIENT RESTING IN BED WITH CALL LIGHT IN LAP, BED IN LOWEST POSITION, SIDE RALES UP X2.
[2019-07-11] MEDS: TEMAZEPAM 15 MG CAP PO PRN (22:35)
[2019-07-11] MEDS: FAMOTIDINE 20 MG TAB PO SCH (22:35)
--- NOTE | 2019-07-11 23:04 | NUR ---
ALBUTEROL INHALER ADMINISTERED WITH SPACER. SPO2 95% ON 2L NC, HR 65, RR 18, AND BREATH SOUNDS ARE CLEAR T/O. NO DISTRESS NOTED. WILL CONTINUE WITH NEXT SCHEDULED TX.
[2019-07-12] MEDS: cloNIDine HCL 0.1 MG TAB PO SCH ×4 (00:30→22:56)
[2019-07-12 05:39] VITALS: BP 125/65
[2019-07-12] MEDS: SODIUM CHLOR 0.9% PF (SALINE LOCK) 10ML VIAL/SYR IV SCH ×3 (06:02→22:55)
[2019-07-12] MEDS: InsuLIN REG 1unit/0.01ml Soln (100units/ml) SC SCH ×4 (06:03→22:59)
[2019-07-12] MEDS: ACCU-CHEK COMFORT CURVE STRIP VI SCH ×4 (06:04→22:57)
[2019-07-12] MEDS: ALBUTEROL SULF HFA 90MCG INH 200DOSE IN SCH ×3 (06:55→22:43)
--- NOTE | 2019-07-12 06:55 | NUR ---
Respiratory note: ALBUTEROL INHALER ADMINISTERED BY RT. HR 85, RR 14, SPO2 92% ON 4 L NC, BS CLEAR AND DIMINISHED. NO SIGNS OR SYMPTOMS OF RESPIRATORY DISTRESS NOTED AT THIS TIME
--- NOTE | 2019-07-12 08:00 | NUR ---
Opening Shift Note Assumed care of patient, awake, alert and oriented X4. No S/S of distress/SOB or pain. Tele# 32, sinus bradycardia @ 54 bpm. IV to right forearm, 22 gauge, patent and saline locked. Left upper arm AV Fistula with good bruit and thrill. Patient is anuric. Instructed on POC and to call for assist PRN, verbalized understanding. Bed locked, in lowest position, call light within reach, will continue to monitor for changes Q1hr and PRN.
[2019-07-12 08:45] VITALS: BP 141/63
[2019-07-12] MEDS: SEVELAMER 800 MG TAB PO SCH ×3 (08:56→17:51)
[2019-07-12] MEDS: PIPERACILLIN-TAZOB 2.25GM 50 ML IV SCH ×2 (10:23→22:55)
[2019-07-12] MEDS: CARVEDILOL 12.5 MG TAB PO SCH ×2 (10:24→22:00)
[2019-07-12] MEDS: predniSONE 20 MG TAB PO SCH (10:24)
[2019-07-12] MEDS: ASPirin 81 mg TAB PO SCH (10:24)
[2019-07-12] MEDS: B-COMPLEX W/ C & FOLIC ACID(NEPHROVITE TAB) PO SCH (10:25)
[2019-07-12] MEDS: amLODIPine BESYLATE 5 MG TAB PO SCH (10:25)
[2019-07-12] MEDS: ENALAPRIL MALEATE 2.5 MG TAB PO SCH (10:25)
[2019-07-12] MEDS: SERTRALINE HCL 50 MG TAB PO SCH (10:26)
--- NOTE | 2019-07-12 10:33 | NUR ---
ROUNDS Dr Benoit at bedside for rounds. Plan of care discussed with patient, verbalized understanding.
--- NOTE | 2019-07-12 12:05 | NUR ---
NEPHROLOGY Dr Ordoñez at bedside for Nephrology follow up, new orders received and followed through. Patient updated on plan of care, verbalized understanding.
[2019-07-12 12:42] VITALS: BP 130/64
--- NOTE | 2019-07-12 14:30 | NUR ---
ALBUTEROL INHALER ADMINISTERED BY RT. TOLERATED WELL. HR 57, RR 16, SPO2 99% ON 2 L NC, BS CLEAR AND DIMINISHED. NO SIGNS OR SYMPTOMS OF RESPIRATORY DISTRESS NOTED AT THIS TIME.Respiratory note:
[2019-07-12 16:39] VITALS: BP 121/64
--- NOTE | 2019-07-12 19:30 | NUR ---
Care endorsed to SHAGUFTA Batista, night nurse.
--- NOTE | 2019-07-12 19:30 | NUR ---
Opening Shift Note Assumed care of patient, awake and alert. No S/S of distress/SOB or pain. Bruit noted to left upper arm, bruit auscultated and thrill felt. Bed in lowest locked position, side rails up x2, call light within reach. Instructed on POC and to call for assist PRN, will continue to monitor for changes Q1hr and PRN.
[2019-07-12 22:00] VITALS: BP 135/56
[2019-07-12] MEDS: FAMOTIDINE 20 MG TAB PO SCH (22:56)
[2019-07-13 00:08] VITALS: BP 135/56
[2019-07-13 05:36] LABS: Basophils # (auto) 0 10 ^3/uL (0-0.2); Eosinophils # (auto) 0 10 ^3/uL (0-0.8); Eosinophils % (auto) 0.2 % (0.0-7.0); Hematocrit 29.7 % (41.0-53.0); Hemoglobin 10.3 g/dL (13.5-17.5); Lymphocytes # (auto) 0.9 10 ^3/uL (0.4-5.4); Lymphocytes % (auto) 14.1 % (10.0-50.0); Mean Corpuscular Hemoglobin 32.4 pg (28.0-32.0); Mean Corpuscular Hgb Conc. 34.6 g/dL (32.0-36.0); Mean Corpuscular Volume 93.5 fL (80.0-100.0); Monocytes # (auto) 0.4 10 ^3/uL (0-1.3); Monocytes % (auto) 6.9 % (0.0-12.0); Neutrophils # (auto) 5.1 10 ^3/uL (1.6-8.6); Neutrophils % (auto) 78.8 % (37.0-80.0); Platelet Count (auto) 171 10^3/uL (140-450); Red Blood Cells 3.18 10^6/uL (4.5-5.90); White Blood Cell 6.4 10^3/uL (4.4-10.8)
[2019-07-13 05:47] LABS: BUN/Creatinine Ratio 9.1; Calcium 8.6 mg/dL (8.5-10.1); Potassium 5.5 mmol/L (3.5-5.1)
[2019-07-13 05:52] VITALS: BP 127/83
[2019-07-13] MEDS: cloNIDine HCL 0.1 MG TAB PO SCH ×2 (06:00→14:00)
[2019-07-13] MEDS: SODIUM CHLOR 0.9% PF (SALINE LOCK) 10ML VIAL/SYR IV SCH ×2 (06:00→14:28)
[2019-07-13] MEDS: InsuLIN REG 1unit/0.01ml Soln (100units/ml) SC SCH ×3 (06:07→16:56)
[2019-07-13] MEDS: ACCU-CHEK COMFORT CURVE STRIP VI SCH ×3 (06:07→16:53)
[2019-07-13] MEDS: ALBUTEROL SULF HFA 90MCG INH 200DOSE IN SCH ×2 (06:30→14:20)
--- NOTE | 2019-07-13 06:40 | NUR ---
Spoke with dialysis nurse, patient to receive dialysis around 07:30 today. Will continue care.
[2019-07-13] MEDS ORDERED: SODIUM CHL 0.9% 1000 ML BAG XX ONE (07:00)
--- NOTE | 2019-07-13 07:25 | NUR ---
Closing Note Patient lying in bed, awake and alert, no s/s of distress. Bed in lowest locked position, side rails up x2, call light within reach. Care endorsed to dayshift RN.
--- NOTE | 2019-07-13 07:40 | NUR ---
Dialysis Nurse at Bedside RN at bedside for treatment.
--- NOTE | 2019-07-13 07:49 | NUR ---
Opening Note Assumed pt care from NOC RN. Pt is a/ox4 with no s/s of distress or SOB. Pt is current sitting upright in bed with dialysis starting and no complaints at this time. Discussed POC with pt; pending social service consult and possible d/c; pt verbalized understanding. Pt is currently on 4L O2 via NC. Safety measures maintained with call light within reach, bed in lowest position and side rails up. Will continue to monitor.
[2019-07-13] MEDS: SEVELAMER 800 MG TAB PO SCH ×3 (08:17→18:16)
[2019-07-13 09:00] VITALS: BP 119/52
[2019-07-13] MEDS: ENALAPRIL MALEATE 2.5 MG TAB PO SCH (10:00)
--- NOTE | 2019-07-13 11:47 | NUR ---
Dialysis Complete Per grinder operator tool, 2.5L removed. Last BP is 125/60 with a HR of 62. To take off pressure dressing at 1400. Will continue to monitor.
[2019-07-13] MEDS: PIPERACILLIN-TAZOB 2.25GM 50 ML IV SCH (11:59)
[2019-07-13] MEDS: amLODIPine BESYLATE 5 MG TAB PO SCH (12:00)
[2019-07-13] MEDS: B-COMPLEX W/ C & FOLIC ACID(NEPHROVITE TAB) PO SCH (12:00)
[2019-07-13] MEDS: CARVEDILOL 12.5 MG TAB PO SCH (12:01)
[2019-07-13] MEDS: ASPirin 81 mg TAB PO SCH (12:01)
[2019-07-13] MEDS: predniSONE 20 MG TAB PO SCH (12:01)
[2019-07-13] MEDS: SERTRALINE HCL 50 MG TAB PO SCH (12:01)
[2019-07-13 13:00] VITALS: BP 112/80
--- NOTE | 2019-07-13 13:45 | NUR ---
Physical Therapy at bedside.
--- NOTE | 2019-07-13 13:55 | NUR ---
Dr. Charles at bedside. Per MD awaiting Social Service O2 setup, also stated she will review most recent ECHO. No new orders, will continue to monitor.
--- NOTE | 2019-07-13 14:37 | NUR ---
D/C Planning Per consult for home oxygen at 4 l/min via nasal cannula. Faxed clinical information to [facility] requesting portable oxygen to be deliver to bedside. Per Carla with [facility]:) portable oxygen will be deliver to bedside between 14:30-16:30. Addendum: 07/13/19 at 1440 by EMMA ELI Amended: Links added.
--- NOTE | 2019-07-13 14:37 | NUR ---
assessment Patient is a 68 year old male who is alert and oriented. Patients cognitive abilities are intact. Prior to admission patient lived home with his daughter Varsha and functioned independently. Patient informed me he is able to care for his own ADLs. Per patient he will return home to his prior living arrangements post discharge and family will transport him home. Patient informed me he has a cane and fww for home use. Patient informed me he is on dialysis with [facility] MWF at 4am. Patient feels safe returning home on discharge. Patient has a consult for home 02. Sidra SOLIS1 will satisfy order. I informed patient he has a right to speak to a social secretary regarding all care. I informed patient he has a right to participate in any and all discharge planning. Patient does not have a POA and advanced directive. I have offered patient information on POA and advanced directives. I informed the patient the advantages and benefits of having an Advanced Directive. Patient verbalized understanding and agreed to discharge plan. Addendum: 07/13/19 at 1440 by Beverly MARROQUIN Amended: Links added.
[2019-07-13] MEDS ORDERED: PIPERACILLIN-TAZOB 0.75 GM in D5W 5% 50 ML IV SCH (15:45)
[2019-07-13 16:39] VITALS: BP 109/46
--- NOTE | 2019-07-13 16:58 | NUR ---
[facility] At Bedside Rep at bedside to deliver and provide pt with education on home O2.
--- NOTE | 2019-07-13 17:03 | NUR ---
D/C Planning Spoke with pt's daughter, Sandra, about d/c order. Daughter made aware.
[2019-07-13 17:17] VITALS: BP 109/49
--- NOTE | 2019-07-13 18:00 | NUR ---
IV and Tele 32 Removed IV to pt's R wrist removed. Catheter was removed fully intact. Site is asymptomatic. Pressure was applied to site for 3 minutes with gauze and then wrapped in coban. Pt instructed to keep dressing on for 30 minutes; pt verbalized understanding. Tele 32 removed and sent back to ICU. Staff made aware.
--- NOTE | 2019-07-13 18:45 | NUR ---
Pt D/C'ed Off Unit Pt d/c'ed off unit via wheelchair. Pt is a/ox4 with no s/s of distress or SOB. Pt provided all instruction material, prescriptions, follow up appointment information, and all questions were answered. Pt left with all belongings and pt's IV and tele box were d/c'ed prior to d/c off unit.
[2019-07-13] MEDS ORDERED: FAMOTIDINE 20 MG TAB PO SCH (22:00)
== END 2019-07-13 18:45 | disposition home or self-care (01) | DRG 194 ==
LOC: EDBD 12:45 → ER 12:45 → TELE 12:46 → TELE-EAST 15:32 → TELE-CENTR 07-11 14:47
PROVIDERS: ADMIT Internal Medicine; ATTEND Internal Medicine Nephrology
PROC: 5A1D70Z Performance of Urinary Filtration, Intermittent, Less than 6 Hours Per Day (ICD-10-PCS; principal; 2019-07-10)
PROC: 5A1D70Z Performance of Urinary Filtration, Intermittent, Less than 6 Hours Per Day (ICD-10-PCS; 2019-07-13)
DX: I13.2 Hypertensive heart and chronic kidney disease with heart failure and with stage 5 chronic kidney disease, or end stage renal disease (principal); J96.01 Acute respiratory failure with hypoxia; J18.9 Pneumonia, unspecified organism; E11.22 Type 2 diabetes mellitus with diabetic chronic kidney disease; N18.6 End stage renal disease; I07.1 Rheumatic tricuspid insufficiency; I27.20 Pulmonary hypertension, unspecified; E11.65 Type 2 diabetes mellitus with hyperglycemia; I16.1 Hypertensive emergency; I50.43 Acute on chronic combined systolic (congestive) and diastolic (congestive) heart failure; D63.1 Anemia in chronic kidney disease; M10.9 Gout, unspecified; F32.9 Major depressive disorder, single episode, unspecified; E87.5 Hyperkalemia; I25.10 Atherosclerotic heart disease of native coronary artery without angina pectoris; Z99.2 Dependence on renal dialysis; Z98.49 Cataract extraction status, unspecified eye; Z80.7 Family history of other malignant neoplasms of lymphoid, hematopoietic and related tissues; Z80.42 Family history of malignant neoplasm of prostate; Z80.0 Family history of malignant neoplasm of digestive organs; Z80.1 Family history of malignant neoplasm of trachea, bronchus and lung; Z79.899 Other long term (current) drug therapy; Z79.82 Long term (current) use of aspirin; Z03.818 Encounter for observation for suspected exposure to other biological agents ruled out; K40.90 Unilateral inguinal hernia, without obstruction or gangrene, not specified as recurrent; I44.7 Left bundle-branch block, unspecified; J44.0 Chronic obstructive pulmonary disease with (acute) lower respiratory infection
CPT/HCPCS: 36415; 36600; 71045; 80048; 80053; 82550; 82728; 82805; 82962; 83036; 83605; 83735; 83880; 84484; 85025; 87040; 87070; 87081; 87804; 87880; 90935; 93005; 94640; 96374; 96375; 97163; G0378; J0696; J1642; J1815; J2543

== ENCOUNTER 2020-01-10 08:42 | Inpatient (IN) | payer MEDICARE, MEDICAID ==
[~2020-01-10] VITALS: Ht 170.2 cm; Wt 80.5 kg
[~2020-01-10 08:42] MED LIST changes: +CITA10TA59 PO
[2020-01-10 09:40] LABS: Basophils # (auto) 0.1 10 ^3/uL (0-0.2); Basophils % (auto) 0.7 % (0.0-2.0); Eosinophils # (auto) 0.2 10 ^3/uL (0-0.8); Hemoglobin 10.6 g/dL (13.5-17.5)
[2020-01-10 09:42] LABS: Eosinophils % (auto) 1.5 % (0.0-7.0); Hematocrit 30.4 % (41.0-53.0); Mean Corpuscular Hemoglobin 33.9 pg (28.0-32.0); Mean Corpuscular Hgb Conc. 34.7 g/dL (32.0-36.0); Mean Corpuscular Volume 97.7 fL (80.0-100.0); Monocytes # (auto) 0.6 10 ^3/uL (0-1.3); Monocytes % (auto) 5.6 % (0.0-12.0); Neutrophils # (auto) 9.5 10 ^3/uL (1.6-8.6); Neutrophils % (auto) 83.2 % (37.0-80.0); Platelet Count (auto) 211 10^3/uL (140-450); Red Blood Cells 3.12 10^6/uL (4.5-5.90); Red Cell Distribution Width 14.2 % (11.8-14.3); White Blood Cell 11.5 10^3/uL (4.4-10.8)
[2020-01-10 09:55] LABS: Alanine Aminotransferase 13 U/L (16-61); Anion Gap 8 (5-15); Blood Urea Nitrogen 43 mg/dL (7-18); Calcium 9.4 mg/dL (8.5-10.1); Carbon Dioxide 30 mmol/L (21-32); Chloride 93 mmol/L (98-107); Glucose 134 mg/dL (74-106); Magnesium 2.9 mg/dL (1.6-2.6); Potassium 3.8 mmol/L (3.5-5.1); Sodium 131 mmol/L (136-145)
[2020-01-10 10:00] LABS: Alkaline Phosphatase 82 U/L (45-117); Aspartate Aminotransferase 5 U/L (15-37); BUN/Creatinine Ratio 6.7; Bilirubin, Total 0.8 mg/dL (0.2-1.0); GFR African American 11 mL/min; GFR Non-African American 9 mL/min; Total Protein 7.9 g/dL (6.4-8.2)
[2020-01-10] MEDS ORDERED: FUROSEMIDE 40 MG/4 ML VIAL IV ONE (12:30)
[2020-01-10] MEDS ORDERED: SPIRONOLACTONE 25 MG TAB PO ONE ×2 (12:30→13:15)
[2020-01-10] MEDS ORDERED: cefTRIAXone 1GM/50ML D5W 50 ML IV ONE (12:30)
[2020-01-10] MEDS ORDERED: DEXTROSE (50%) 50ML SYRG IV PRN (16:15)
[2020-01-10] MEDS ORDERED: ACETAMINOPHEN 500 MG TAB PO PRN (16:15)
[2020-01-10] MEDS ORDERED: HYDROcodone-ACET 5/325MG TAB PO PRN (16:15)
[2020-01-10] MEDS ORDERED: NITROGLYCERIN 0.4 MG SL TAB SL PRN (16:15)
[2020-01-10] MEDS ORDERED: MORPHINE SULF INJ 2 MG/ML SYRINGE 1ML IV PRN ×2 (16:15)
[2020-01-10 16:18] VITALS: BP 137/67
[2020-01-10] MEDS: InsuLIN REG 1unit/0.01ml Soln (100units/ml) SC SCH ×2 (17:00→21:54)
[2020-01-10] MEDS: ALBUTEROL SULF 2.5 MG/0.5ML(0.5%) NEB SOLN NEB SCH (17:17)
[2020-01-10] MEDS: IPRATROPIUM BROM 0.5 MG/2.5ML INH SOL NEB SCH (17:17)
--- NOTE | 2020-01-10 17:18 | NUR ---
PAGED TO BEDSIDE TO ASSESS PT. PT TACHYPNEIC, DBR90-26% ON 6LPM , HR IN 90S. MED NEB TX GIVEN VIA MASK. BS ARE DIMINISHED W/ FAINT WHEEZES. RN AT BEDSIDE AND COMMUNICATED FINDINGS. WILL CONTINUE T O MONITOR.
[2020-01-10] MEDS: ACCU-CHEK COMFORT CURVE STRIP VI SCH ×2 (17:20→21:53)
--- NOTE | 2020-01-10 17:21 | NUR ---
Telemetry admit from [facility] admitted to Telemetry unit after SBAR received. Patient oriented to Smitha Caputo, primary RN, unit, room, bed, and unit policies regarding patient care and visiting hours. Patient now on continuous telemetry monitoring, tele box # 81 and telemetry reading on arrival to unit is sinus rhythm at 87. Patient placed on bedside oxygen 6 lit via n/c, O2 sat 84%, pt having a sob, paged RT for assessment and breathing treatment, weighed by bedscale and encouraged to call if they need something. All questions and concerns addressed, patient verbalized understanding. Paged hospitalist regarding pt's high BP, BP 185/108, HR 92, received call back and orders for Labetalol 10 mg IV Q4 hr prn.
[2020-01-10 17:27] VITALS: BP 185/102
[2020-01-10] MEDS: LABETALOL HCL 5 MG/ML 4ML SYRINGE IV PRN ×2 (17:47→21:55)
[2020-01-10 18:50] VITALS: BP 164/74
[2020-01-10] MEDS: SEVELAMER 800 MG TAB PO SCH (21:53)
[2020-01-10] MEDS: CARVEDILOL 12.5 MG TAB PO SCH (21:56)
[2020-01-10 23:19] VITALS: BP 159/78
[2020-01-11] MEDS: SEVELAMER 800 MG TAB PO SCH ×3 (05:16→23:20)
[2020-01-11] MEDS: InsuLIN REG 1unit/0.01ml Soln (100units/ml) SC SCH ×2 (05:16→11:30)
[2020-01-11] MEDS: ACCU-CHEK COMFORT CURVE STRIP VI SCH ×2 (05:16→11:30)
[2020-01-11 05:19] VITALS: BP 130/95
[2020-01-11 06:15] LABS: Basophils # (auto) 0 10 ^3/uL (0-0.2); Eosinophils # (auto) 0.1 10 ^3/uL (0-0.8); Monocytes # (auto) 0.7 10 ^3/uL (0-1.3)
[2020-01-11 06:18] LABS: Basophils % (auto) 0.4 % (0.0-2.0); Eosinophils % (auto) 1.7 % (0.0-7.0); Hematocrit 27.2 % (41.0-53.0); Hemoglobin 9.8 g/dL (13.5-17.5); Lymphocytes % (auto) 15.2 % (10.0-50.0); Mean Corpuscular Hemoglobin 34.7 pg (28.0-32.0); Mean Corpuscular Hgb Conc. 36.2 g/dL (32.0-36.0); Mean Corpuscular Volume 96.1 fL (80.0-100.0); Monocytes % (auto) 10.1 % (0.0-12.0); Neutrophils # (auto) 4.9 10 ^3/uL (1.6-8.6); Neutrophils % (auto) 72.6 % (37.0-80.0); Nucleated Red Blood Cells % 0.1 %; Platelet Count (auto) 193 10^3/uL (140-450); Red Blood Cells 2.83 10^6/uL (4.5-5.90); White Blood Cell 6.7 10^3/uL (4.4-10.8)
[2020-01-11 06:40] LABS: Potassium 3.9 mmol/L (3.5-5.1)
[2020-01-11 06:45] LABS: BUN/Creatinine Ratio 7.2; Calcium 9.5 mg/dL (8.5-10.1)
--- NOTE | 2020-01-11 06:53 | NUR ---
END OF SHIFT NOTE WILL ENDORSE PT CARE TO DAY SHIFT RN. PT A0X4, NO S/S OF DISTRESS OR SOB
[2020-01-11] MEDS: ALBUTEROL SULF 2.5 MG/0.5ML(0.5%) NEB SOLN NEB SCH ×3 (07:16→18:18)
[2020-01-11] MEDS: IPRATROPIUM BROM 0.5 MG/2.5ML INH SOL NEB SCH ×3 (07:16→18:18)
--- NOTE | 2020-01-11 07:30 | NUR ---
Opening Shift Note Assumed care of patient, awake and alert. No S/S of distress/SOB or pain. Bed is low, locked with 2x side rails up. Call light is within reach. Instructed on POC and to call for assist PRN, will continue to monitor for changes Q1hr and PRN.
[2020-01-11 09:00] VITALS: BP 137/66
[2020-01-11] MEDS: cefTRIAXone 1GM/50ML D5W 50 ML IV SCH (09:26)
[2020-01-11] MEDS: B-COMPLEX W/ C & FOLIC ACID(NEPHROVITE TAB) PO SCH (09:27)
[2020-01-11] MEDS: SERTRALINE HCL 50 MG TAB PO SCH (09:28)
[2020-01-11] MEDS: CARVEDILOL 12.5 MG TAB PO SCH ×2 (09:29→22:00)
[2020-01-11] MEDS ORDERED: FAMOTIDINE 20 MG TAB PO SCH (10:00)
[2020-01-11] MEDS: AZITHROMYCIN 500MG/ 250ML 250 ML IV SCH (11:05)
[2020-01-11] MEDS ORDERED: SODIUM CHL 0.9% 1000 ML BAG XX ONE (12:00)
[2020-01-11 13:00] VITALS: BP 159/67
[2020-01-11 17:00] VITALS: BP 168/74
[2020-01-11 17:14] VITALS: BP 146/76
[2020-01-11] MEDS ORDERED: EPOETIN ALFA 4,000 UNIT/ML VL SC ONE (21:00)
[2020-01-11 22:00] VITALS: BP 143/69
--- NOTE | 2020-01-11 22:00 | NUR ---
RECEIVED CALL FROM WOOD MACHINIST STATED PT IS LOW 30 BRADYCARDIA . ASSESS PT, PT IS AOX4 , VS B/P-158/78 ,HR-79,RR-20,T-98.2,RR-20. PERFORMED A EKG. WILL PAGE HOSPITALIST
--- NOTE | 2020-01-11 22:55 | NUR ---
HOSPITALIST Deonte updated on patient status and reason for call, no new orders received. Continue care.
[2020-01-12 05:00] VITALS: BP 169/66
[2020-01-12] MEDS: SEVELAMER 800 MG TAB PO SCH ×3 (05:53→21:41)
[2020-01-12] MEDS: ALBUTEROL SULF 2.5 MG/0.5ML(0.5%) NEB SOLN NEB SCH ×5 (05:58→22:25)
[2020-01-12] MEDS: IPRATROPIUM BROM 0.5 MG/2.5ML INH SOL NEB SCH ×5 (05:58→22:25)
[2020-01-12 06:20] VITALS: BP 158/78
[2020-01-12 06:43] LABS: Chloride 90 mmol/L (98-107); Potassium 4.3 mmol/L (3.5-5.1); Sodium 129 mmol/L (136-145)
--- NOTE | 2020-01-12 06:50 | NUR ---
END OF SHIFT NOTE WILL ENDORSE PT CARE TO DAY SHIFT RN. PT A0X4, NO S/S OF DISTRESS OR SOB
[2020-01-12 06:51] LABS: Alanine Aminotransferase 9 U/L (16-61); Albumin 3.8 g/dL (3.4-5.0); Alkaline Phosphatase 70 U/L (45-117); Anion Gap 13 (5-15); Aspartate Aminotransferase < 3 U/L (15-37); Blood Urea Nitrogen 62 mg/dL (7-18); Calcium 9.8 mg/dL (8.5-10.1); Carbon Dioxide 26 mmol/L (21-32); Cholesterol 105 mg/dL (< 200); GFR African American 8 mL/min; GFR Non-African American 6 mL/min; Glucose 103 mg/dL (74-106); HDL Cholesterol 45 mg/dL (40-59); LDL Cholesterol 56 mg/dL (< 100); Magnesium 2.7 mg/dL (1.6-2.6); Total Protein 7.2 g/dL (6.4-8.2); Triglycerides 96 mg/dL (< 150)
[2020-01-12 09:00] VITALS: BP 181/79
[2020-01-12] MEDS: cefTRIAXone 1GM/50ML D5W 50 ML IV SCH (09:00)
--- NOTE | 2020-01-12 09:00 | NUR ---
Hemodialysis Dialysis nurse is at bedside.
[2020-01-12] MEDS: ONDANSETRON HCL 4 MG/2 ML VIAL IV PRN ×2 (09:53→14:23)
--- NOTE | 2020-01-12 11:45 | NUR ---
PATIENT S RECEIVING DIALYSIS. ATTEMPT P.T. IN PM.
--- NOTE | 2020-01-12 12:30 | NUR ---
Hemodialysis complete 3L out.
[2020-01-12 13:00] VITALS: BP 174/84
[2020-01-12] MEDS: B-COMPLEX W/ C & FOLIC ACID(NEPHROVITE TAB) PO SCH (13:32)
[2020-01-12] MEDS: CITALOPRAM HYDROBR 20 MG TAB PO SCH (13:33)
[2020-01-12] MEDS: amLODIPine BESYLATE 5 MG TAB PO SCH (13:33)
[2020-01-12] MEDS: CARVEDILOL 12.5 MG TAB PO SCH ×2 (13:33→21:41)
[2020-01-12] MEDS: SERTRALINE HCL 50 MG TAB PO SCH (13:34)
[2020-01-12] MEDS: AZITHROMYCIN 500MG/ 250ML 250 ML IV SCH (13:34)
--- NOTE | 2020-01-12 14:11 | NUR ---
Respiratory note: STOPPED MN TX BEFORE FINISHED. PT STATED HE FELT LIKE THROWING UP. PT RECEIVED GREEN BAG AND THREW UP SMALL AMOUNT OF CLEAR FLUID. RN NOTIFIED.
[2020-01-12 17:15] VITALS: BP 155/76
--- NOTE | 2020-01-12 19:30 | NUR ---
Opening Shift Note Assumed care of patient, awake and alert. No S/S of distress/SOB or pain. Instructed on POC and to call for assist PRN, will continue to monitor for changes Q1hr and PRN.
[2020-01-12 20:00] VITALS: BP 141/56
[2020-01-12] MEDS ORDERED: EPOETIN ALFA 4,000 UNIT/ML VL IV ONE (21:00)
--- NOTE | 2020-01-12 22:25 | NUR ---
Sleeping Aid Patient requested a sleeping pill. Hospitalist Deonte ordered Temazepam 15mg PO once, repeated orders to verified.
[2020-01-12] MEDS ORDERED: TEMAZEPAM 15 MG CAP PO ONE (22:30)
[2020-01-13] VITALS (7 sets, daily range): BP systolic 140–150; BP diastolic 61–90
[2020-01-13] MEDS: ALBUTEROL SULF 2.5 MG/0.5ML(0.5%) NEB SOLN NEB SCH ×5 (06:17→21:57)
[2020-01-13] MEDS: IPRATROPIUM BROM 0.5 MG/2.5ML INH SOL NEB SCH ×5 (06:17→21:57)
[2020-01-13] MEDS: SEVELAMER 800 MG TAB PO SCH ×3 (06:18→18:42)
--- NOTE | 2020-01-13 06:26 | NUR ---
Respiratory note: PATIENT FOUND ON 5PLM OXYMIZER WITH SPO2 OF 98%. FLOW WAS DECREASED TO 4LPM AND SPO2 MAINTAINED AT 96%.
[2020-01-13 06:45] LABS: BUN/Creatinine Ratio 5.9; Calcium 9.3 mg/dL (8.5-10.1); Potassium 3.8 mmol/L (3.5-5.1)
--- NOTE | 2020-01-13 07:30 | NUR ---
Opening Shift Note Assuming care of patient at this time. Patient is awake and alert. Patient denies pain. Patient shows no signs or symptoms of distress or shortness of breath. Bed is locked and lowered with side rails up x2. Instructed patient on the plan of care for today and to call for assistance as needed. Call light within reach. Will continue to round hourly and as needed.
[2020-01-13] MEDS: B-COMPLEX W/ C & FOLIC ACID(NEPHROVITE TAB) PO SCH (09:52)
[2020-01-13] MEDS: SERTRALINE HCL 50 MG TAB PO SCH (09:52)
[2020-01-13] MEDS: CITALOPRAM HYDROBR 20 MG TAB PO SCH (09:52)
[2020-01-13] MEDS: amLODIPine BESYLATE 5 MG TAB PO SCH (09:53)
[2020-01-13] MEDS: CARVEDILOL 12.5 MG TAB PO SCH (09:53)
[2020-01-13] MEDS: cefTRIAXone 1GM/50ML D5W 50 ML IV SCH (09:58)
--- NOTE | 2020-01-13 10:01 | NUR ---
Respiratory note: PATIENT HAS LOW HR AT THIS TIME; HR ON POX SHOWS 38. HR WAS MANUALLY FELT VIA RADIAL PULSE AND THE RATE WAS LOW AT 38. SHAGUFTA PEREZ MADE AWARE OF LOW HEART RATE. RATE DID INCREASE DURING MED-NEB TX TO 74.
[2020-01-13] MEDS ORDERED: hydrALAZINE HCL 25 MG TAB PO PRN (11:30)
--- NOTE | 2020-01-13 11:35 | NUR ---
Nutrition Assessment Note please see attached link for complete assessment Est energy needs BW [id number] kcal (30-33 kcal/kg BW) Est protein needs: 96-112 g (1.2-1.4g/kg BW r/t HD) Will reassess prn. Addendum: 01/13/20 at [address] Amended: Links added.
[2020-01-13] MEDS: AZITHROMYCIN 500MG/ 250ML 250 ML IV SCH (14:21)
--- NOTE | 2020-01-13 15:30 | NUR ---
PT REPORTS THAT HE HAS BEEN WALKING TO THE BATHROOM FINE AND DOES NOT NEED P.T. INTERVENTION.
--- NOTE | 2020-01-13 16:19 | NUR ---
assessment Patient is a 69 year old male who is alert and oriented. Patients cognitive abilities are intact. Prior to admission patient lived home with his daughter Varsha and functioned independently. Patient informed me he is able to care for his own ADLs. Per patient he will return home to his prior living arrangements post discharge and Varsha will transport him home. Patient informed me he has a cane, oxygen and fww for home use. Patient informed me he is on dialysis with [facility] M[facility] at 4am. Patient feels safe returning home on discharge. Patient has a consult for [facility] for safety, PT, medication management, vitals. Patient asked me to call Varsha for choice. I called Varsha and read her a list of medicare providers. Per Varsha she has no preference on who provides service. MD order has been sent to [facility]. Per Humaira at [facility] service will start within 24 to 48 hours of discharge. Varsha has been notified. I informed patient he has a right to speak to a social sciences chair regarding all care. I informed patient he has a right to participate in any and all discharge planning. Patient does not have a POA and advanced directive. I have offered patient information on POA and advanced directives. I informed the patient the advantages and benefits of having an Advanced Directive. Patient verbalized understanding and agreed to discharge plan. Addendum: 01/13/20 at 1622 by Beverly MARROQUIN Amended: Links added.
[2020-01-13] MEDS ORDERED: FAMOTIDINE 20 MG TAB PO SCH (18:00)
[2020-01-13] MEDS ORDERED: CALCIUM CARB 500 MG CHEW TAB PO ONE (18:15)
--- NOTE | 2020-01-13 19:30 | NUR ---
Opening Shift Note Assumed care of patient, awake and alert. No S/S of distress/SOB or pain. Patient is currently on 4.0 NC with a saturation of 92%. Bed is locked in lowest position with call light within reach. Instructed on POC and to call for assist PRN, will continue to monitor for changes Q1hr and PRN.
--- NOTE | 2020-01-13 19:30 | NUR ---
Closing Shift Note Patient resting in bed. No distress noted. Report given. Will endorse care to overnight associate RN.
[2020-01-13] MEDS: SACUBITRIL-VALSARTAN 24mg/26mg TAB PO SCH (22:40)
--- NOTE | 2020-01-13 23:11 | NUR ---
Patient has been transferred to room 298A.
--- NOTE | 2020-01-14 | NUR ---
HOSPITALIST PAGED Patient states that he is unable to sleep properly and is requesting a sleeping aid. MD David paged. New order for Temazepam 15 mg PO HS PRN.
[2020-01-14] MEDS ORDERED: TEMAZEPAM 15 MG CAP PO PRN (00:15)
--- NOTE | 2020-01-14 00:25 | NUR ---
Patient reports feeling more short of breath than usual. RT has been paged. Patient is current SPO2 is 89%.
--- NOTE | 2020-01-14 01:00 | NUR ---
Patient continue to c/o feeling SOB. The patient has been placed on an Oxymizer 8 L. Patient is current SPO2 is 93%.
--- NOTE | 2020-01-14 01:25 | NUR ---
THE PATIENT'S BLOOD PRESSURE IS ELEVATED AT 185/101. WILL ADMINISTER PRN HYDRALAZINE AND REEVALUATE BLOOD PRESSURE.
[2020-01-14] MEDS: ALBUTEROL SULF 2.5 MG/0.5ML(0.5%) NEB SOLN NEB SCH ×6 (01:44→22:00)
[2020-01-14] MEDS: IPRATROPIUM BROM 0.5 MG/2.5ML INH SOL NEB SCH ×6 (01:44→22:00)
--- NOTE | 2020-01-14 02:00 | NUR ---
PATIENT STATES THAT HIS SOB HAS IMPROVED. PATIENT IS RESTING COMFORTABLY IN BED.
--- NOTE | 2020-01-14 03:00 | NUR ---
BLOOD PRESSURE REEVALUATION The patient's blood pressure has improved to 149/80. Will continue to monitor the patient's status.
[2020-01-14 05:00] VITALS: BP 146/74
[2020-01-14 05:35] LABS: Red Cell Distribution Width 13.7 % (11.8-14.3); White Blood Cell 9.9 10^3/uL (4.4-10.8)
[2020-01-14 06:13] LABS: Calcium 9.4 mg/dL (8.5-10.1); Potassium 4.5 mmol/L (3.5-5.1)
[2020-01-14 06:16] LABS: BUN/Creatinine Ratio 6.9
[2020-01-14 06:23] LABS: Basophils # (auto) 0 10 ^3/uL (0-0.2); Basophils % (auto) 0.2 % (0.0-2.0); Eosinophils # (auto) 0.1 10 ^3/uL (0-0.8); Hematocrit 27.2 % (41.0-53.0); Hemoglobin 9.5 g/dL (13.5-17.5); Lymphocytes # (auto) 0.7 10 ^3/uL (0.4-5.4); Lymphocytes % (auto) 6.8 % (10.0-50.0); Mean Corpuscular Hemoglobin 34.2 pg (28.0-32.0); Mean Corpuscular Volume 97.7 fL (80.0-100.0); Monocytes # (auto) 0.8 10 ^3/uL (0-1.3); Monocytes % (auto) 8.4 % (0.0-12.0); Neutrophils # (auto) 8.2 10 ^3/uL (1.6-8.6); Neutrophils % (auto) 83.6 % (37.0-80.0); Platelet Count (auto) 181 10^3/uL (140-450); Red Blood Cells 2.78 10^6/uL (4.5-5.90)
[2020-01-14] MEDS ORDERED: SODIUM CHL 0.9% 1000 ML BAG XX ONE (07:00)
--- NOTE | 2020-01-14 07:30 | NUR ---
Opening Shift Note Assumed care of patient, awake and alert. No S/S of distress/SOB or pain. Instructed on POC and to call for assist PRN, will continue to monitor for changes Q1hr and PRN. Bed is locked and in lowest position. Call light within reach.
[2020-01-14 08:00] VITALS: BP 114/83
[2020-01-14 08:45] VITALS: BP 114/83
[2020-01-14] MEDS: cefTRIAXone 1GM/50ML D5W 50 ML IV SCH (09:54)
[2020-01-14] MEDS: SEVELAMER 800 MG TAB PO SCH ×3 (09:54→18:45)
--- NOTE | 2020-01-14 10:11 | NUR ---
DIALYSIS AT BEDSIDE PER DR. RODRIGUEZ ORDER. MOTORCOACH DRIVER GIVEN HEPARIN 10,000 UNITS TO ADMINISTER TO PATIENT. WILL CONTINUE TO MONITOR PATIENT.
--- NOTE | 2020-01-14 11:45 | NUR ---
DR. RACHEL AT BEDSIDE TO DISCUSS POC. PATIENT UNDERGOING DIALYSIS AT THE MOMENT. PATIENT WILL CONTINUE TO BE MONITORED FOR SOB AND ABD PAIN. PLAN IS TO DISCHARGE PATIENT 01/15/20. WILL CONTINUE TO MONITOR PATIENT.
[2020-01-14 13:00] VITALS: BP 136/68
--- NOTE | 2020-01-14 13:33 | NUR ---
DIALYSIS PER OPERATIONS PROGRAM MANAGER [place] 3L WERE REMOVED FROM PATIENT DURING DIALYSIS. PATIENT TOLERATED DIALYSIS WITH NO SIGNS OF DISTRESS. PATIENT LAST BP WAS 155/65 HR 78. WILL CONTINUE TO MONITOR PATIENT.
[2020-01-14] MEDS: AZITHROMYCIN 500MG/ 250ML 250 ML IV SCH (13:57)
[2020-01-14] MEDS: B-COMPLEX W/ C & FOLIC ACID(NEPHROVITE TAB) PO SCH (13:58)
[2020-01-14] MEDS: CITALOPRAM HYDROBR 20 MG TAB PO SCH (13:59)
[2020-01-14] MEDS: SACUBITRIL-VALSARTAN 24mg/26mg TAB PO SCH ×2 (13:59→22:01)
[2020-01-14] MEDS: SERTRALINE HCL 50 MG TAB PO SCH (13:59)
[2020-01-14] MEDS: amLODIPine BESYLATE 5 MG TAB PO SCH (14:01)
[2020-01-14 16:47] VITALS: BP 154/60
--- NOTE | 2020-01-14 19:40 | NUR ---
Opening Shift Note Assumed care of patient, awake and alert. No S/S of distress/SOB or pain. Patient states that he feels improved after receiving dialysis. Bed is locked in lowest position with the bed alarm armed. Instructed on POC and to call for assist PRN, will continue to monitor for changes Q1hr and PRN.
[2020-01-14] MEDS ORDERED: EPOETIN ALFA 10,000 UNIT/1 ML VIAL SC ONE (21:00)
[2020-01-14 22:00] VITALS: BP 153/77
[2020-01-15 05:00] VITALS: BP 131/66
[2020-01-15] MEDS: ALBUTEROL SULF 2.5 MG/0.5ML(0.5%) NEB SOLN NEB SCH ×4 (05:40→18:04)
[2020-01-15] MEDS: IPRATROPIUM BROM 0.5 MG/2.5ML INH SOL NEB SCH ×4 (05:40→18:04)
[2020-01-15] MEDS: SEVELAMER 800 MG TAB PO SCH ×2 (07:44→12:49)
[2020-01-15] MEDS: cefTRIAXone 1GM/50ML D5W 50 ML IV SCH (08:48)
[2020-01-15 08:54] VITALS: BP 143/59
[2020-01-15] MEDS: SACUBITRIL-VALSARTAN 24mg/26mg TAB PO SCH (10:16)
[2020-01-15] MEDS: AZITHROMYCIN 500MG/ 250ML 250 ML IV SCH (10:16)
[2020-01-15] MEDS: B-COMPLEX W/ C & FOLIC ACID(NEPHROVITE TAB) PO SCH (10:16)
[2020-01-15] MEDS: CITALOPRAM HYDROBR 20 MG TAB PO SCH (10:17)
[2020-01-15] MEDS: amLODIPine BESYLATE 5 MG TAB PO SCH (10:17)
[2020-01-15] MEDS: SERTRALINE HCL 50 MG TAB PO SCH (10:18)
[2020-01-15] MEDS ORDERED: SACU1TAB PO (12:31)
[2020-01-15] MEDS ORDERED: DOXY-286 PO (12:31)
[2020-01-15 12:52] VITALS: BP 137/70
[2020-01-15 14:07] VITALS: BP 143/59
[2020-01-15 16:27] VITALS: BP 145/64
--- NOTE | 2020-01-15 19:25 | NUR ---
DISCHARGE PATIENT/DAUGHTER GIVEN DISCHARGE PAPERWORK AND PRESCRIPTIONS. ALL QUESTIONS AND CONCERNS ANSWERED FOR PATIENT. PATIENT TELEMONITOR REMOVED AND SENT TO ICU HEART LAB. PATIENT HOME HEALTH ACCEPTED BY [facility] AND SET UP WHICH WILL BEGIN ONCE PATIENT IS DISCHARGED HOME. PATIENT TRANSFERRED FROM BED TO WHEELCHAIR WITH NO SIGNS OF PAIN OR DISTRESS. PATIENT TRANSPORTED HOME IN PERSONAL VEHICLE. IV removal IV DC'd with clean sterile technique, catheter fully intact. Pressure dressing applied to site. Patient tolerated well.
== END 2020-01-15 19:25 | disposition home health service (06) | DRG 720 ==
LOC: EDBD 08:42 → ER 08:42 → TELE-WESTW 08:43
PROVIDERS: ADMIT Nurse Practitioner Acute Care; ATTEND Internal Medicine
PROC: 5A1D70Z Performance of Urinary Filtration, Intermittent, Less than 6 Hours Per Day (ICD-10-PCS; 2020-01-12)
PROC: 5A1D70Z Performance of Urinary Filtration, Intermittent, Less than 6 Hours Per Day (ICD-10-PCS; principal; 2020-01-14)
DX: A41.9 Sepsis, unspecified organism (principal); J96.00 Acute respiratory failure, unspecified whether with hypoxia or hypercapnia; I13.2 Hypertensive heart and chronic kidney disease with heart failure and with stage 5 chronic kidney disease, or end stage renal disease; I50.43 Acute on chronic combined systolic (congestive) and diastolic (congestive) heart failure; E87.1 Hypo-osmolality and hyponatremia; N18.6 End stage renal disease; J18.9 Pneumonia, unspecified organism; E11.22 Type 2 diabetes mellitus with diabetic chronic kidney disease; J44.0 Chronic obstructive pulmonary disease with (acute) lower respiratory infection; G62.9 Polyneuropathy, unspecified; I08.1 Rheumatic disorders of both mitral and tricuspid valves; D63.8 Anemia in other chronic diseases classified elsewhere; F17.200 Nicotine dependence, unspecified, uncomplicated; I70.0 Atherosclerosis of aorta; F32.9 Major depressive disorder, single episode, unspecified; F41.9 Anxiety disorder, unspecified; M19.90 Unspecified osteoarthritis, unspecified site; E78.5 Hyperlipidemia, unspecified; J98.11 Atelectasis; M06.9 Rheumatoid arthritis, unspecified; Z20.828 Contact with and (suspected) exposure to other viral communicable diseases; Z79.84 Long term (current) use of oral hypoglycemic drugs; Z79.899 Other long term (current) drug therapy; Z80.0 Family history of malignant neoplasm of digestive organs; Z99.2 Dependence on renal dialysis; Z80.1 Family history of malignant neoplasm of trachea, bronchus and lung; Z80.42 Family history of malignant neoplasm of prostate; Z80.7 Family history of other malignant neoplasms of lymphoid, hematopoietic and related tissues
CPT/HCPCS: 36415; 71045; 80048; 80053; 80061; 82962; 83036; 83605; 83735; 83880; 84443; 84484; 85025; 87040; 87426; 87804; 90935; 93005; 93306; 94640; 96365; 96375; G0378; J0696; J0885; J1642; J2405; J3490

== ENCOUNTER 2020-01-28 19:16 | Inpatient (IN) | payer MEDICARE, MEDICAID ==
[~2020-01-28] VITALS: Ht 172.7 cm; Wt 74.7 kg
[~2020-01-28 19:16] MED LIST changes: -CAR125T PO; -CLO01T PO; +DOXY-286 PO; +SACU1TAB PO
[2020-01-28] MEDS ORDERED: ALBUTEROL SULF 2.5 MG/0.5ML(0.5%) NEB SOLN ONE (19:23)
[2020-01-28] MEDS ORDERED: LORazepam 2MG/ML-1ML VIAL IV ONE (19:30)
[2020-01-28] MEDS ORDERED: ALBUTEROL SULF 2.5 MG/0.5ML(0.5%) NEB SOLN NEB ONE (19:30)
[2020-01-28] MEDS ORDERED: FUROSEMIDE 20 MG/2 ML VIAL IV ONE (19:45)
[2020-01-28 20:16] LABS: Lymphocytes # (auto) 1.2 10 ^3/uL (0.4-5.4); Red Cell Distribution Width 13.6 % (11.8-14.3)
[2020-01-28 20:18] LABS: Basophils # (auto) 0.1 10 ^3/uL (0-0.2); Basophils % (auto) 0.5 % (0.0-2.0); Eosinophils # (auto) 0 10 ^3/uL (0-0.8); Eosinophils % (auto) 0.2 % (0.0-7.0); Hematocrit 31.3 % (41.0-53.0); Lymphocytes % (auto) 8.9 % (10.0-50.0); Mean Corpuscular Hemoglobin 34.3 pg (28.0-32.0); Mean Corpuscular Hgb Conc. 35.2 g/dL (32.0-36.0); Mean Corpuscular Volume 97.5 fL (80.0-100.0); Monocytes # (auto) 0.7 10 ^3/uL (0-1.3); Monocytes % (auto) 5.4 % (0.0-12.0); Neutrophils # (auto) 11.5 10 ^3/uL (1.6-8.6); Platelet Count (auto) 226 10^3/uL (140-450); Red Blood Cells 3.22 10^6/uL (4.5-5.90); White Blood Cell 13.5 10^3/uL (4.4-10.8)
[2020-01-28 20:33] LABS: Albumin 3.9 g/dL (3.4-5.0); BUN/Creatinine Ratio 5.4; Calcium 9.6 mg/dL (8.5-10.1); Magnesium 2.1 mg/dL (1.6-2.6); Potassium 3.9 mmol/L (3.5-5.1)
[2020-01-28 20:37] LABS: Bilirubin, Total 0.9 mg/dL (0.2-1.0); Total Protein 7.8 g/dL (6.4-8.2)
[2020-01-28 20:42] LABS: INR 1.1 (0.9-1.15); Partial Thromboplastin Time 25.4 sec (23.0-31.2)
[2020-01-28] MEDS ORDERED: LISI2.5T47 PO (21:09)
[2020-01-28] MEDS ORDERED: ATOR40TA52 PO (21:09)
[2020-01-28] MEDS ORDERED: ASPirin 81 mg TAB PO ONE (22:15)
[2020-01-29] MEDS ORDERED: DOCUSATE SOD 100 MG CAP PO PRN (03:00)
[2020-01-29] MEDS ORDERED: MORPHINE SULF INJ 2 MG/ML SYRINGE 1ML IV PRN (03:00)
[2020-01-29] MEDS ORDERED: NITROGLYCERIN 0.4 MG SL TAB SL PRN (03:00)
[2020-01-29] MEDS ORDERED: MORPHINE SULFATE 4 MG/ML SYR/VIAL IV PRN (03:00)
[2020-01-29] MEDS ORDERED: ONDANSETRON HCL 4 MG/2 ML VIAL IV PRN (03:00)
[2020-01-29] MEDS ORDERED: ACETAMINOPHEN 325 MG TAB PO PRN (03:00)
[2020-01-29] MEDS ORDERED: ALBUTEROL SULF 2.5 MG/0.5ML(0.5%) NEB SOLN NEB PRN (03:15)
[2020-01-29 04:45] VITALS: BP 142/42
[2020-01-29] MEDS: cefTRIAXone 1GM/50ML D5W 50 ML IV SCH (04:45)
[2020-01-29] MEDS: SODIUM CHLOR 0.9% PF (SALINE LOCK) 10ML VIAL/SYR IV SCH ×3 (05:14→22:25)
[2020-01-29 07:49] VITALS: BP 142/42
[2020-01-29 08:00] VITALS: BP 153/77
[2020-01-29] MEDS: ASPirin 81 mg TAB PO SCH (09:57)
[2020-01-29] MEDS: SACUBITRIL-VALSARTAN 24mg/26mg TAB PO SCH ×2 (09:58→22:35)
[2020-01-29] MEDS: FAMOTIDINE 20 MG TAB PO SCH (09:58)
[2020-01-29] MEDS: ASCORBIC ACID 500 MG TAB PO SCH ×2 (09:58→22:36)
[2020-01-29] MEDS: amLODIPine BESYLATE 5 MG TAB PO SCH (09:59)
[2020-01-29] MEDS ORDERED: ZINC SULFATE 220mg CAP or TAB PO SCH (10:00)
[2020-01-29] MEDS ORDERED: MULTIPLE VITAMIN TAB PO SCH (10:00)
[2020-01-29 10:50] LABS: Basophils # (auto) 0 10 ^3/uL (0-0.2); Basophils % (auto) 0.3 % (0.0-2.0); Eosinophils # (auto) 0 10 ^3/uL (0-0.8); Hematocrit 26.2 % (41.0-53.0); Hemoglobin 9.1 g/dL (13.5-17.5); Lymphocytes # (auto) 0.7 10 ^3/uL (0.4-5.4); Lymphocytes % (auto) 6.1 % (10.0-50.0); Mean Corpuscular Hemoglobin 33.7 pg (28.0-32.0); Mean Corpuscular Hgb Conc. 34.7 g/dL (32.0-36.0); Monocytes # (auto) 0.8 10 ^3/uL (0-1.3); Neutrophils # (auto) 10.1 10 ^3/uL (1.6-8.6); Neutrophils % (auto) 86.6 % (37.0-80.0); Nucleated Red Blood Cells % 0.1 %; Platelet Count (auto) 162 10^3/uL (140-450); Red Cell Distribution Width 13.6 % (11.8-14.3); White Blood Cell 11.6 10^3/uL (4.4-10.8)
[2020-01-29 11:09] LABS: Albumin 3.7 g/dL (3.4-5.0); Calcium 9.7 mg/dL (8.5-10.1); Potassium 4.3 mmol/L (3.5-5.1)
[2020-01-29 11:14] LABS: BUN/Creatinine Ratio 6.2; Bilirubin, Total 0.6 mg/dL (0.2-1.0); Total Protein 7.2 g/dL (6.4-8.2)
[2020-01-29 12:00] VITALS: BP 149/79
[2020-01-29] MEDS ORDERED: SODIUM CHL 0.9% 1000 ML BAG XX ONE (14:15)
[2020-01-29 17:12] VITALS: BP 136/67
[2020-01-29 21:00] VITALS: BP 139/77
[2020-01-29] MEDS ORDERED: TEMAZEPAM 15 MG CAP PO ONE (21:45)
[2020-01-29] MEDS: ATORVASTATIN 20 MG TAB PO SCH (22:36)
[2020-01-30 05:00] VITALS: BP 147/68
[2020-01-30] MEDS: SODIUM CHLOR 0.9% PF (SALINE LOCK) 10ML VIAL/SYR IV SCH ×3 (05:43→21:39)
[2020-01-30 05:45] LABS: Basophils # (auto) 0 10 ^3/uL (0-0.2); Basophils % (auto) 0.6 % (0.0-2.0); Hemoglobin 9.1 g/dL (13.5-17.5); Monocytes # (auto) 0.7 10 ^3/uL (0-1.3); Red Blood Cells 2.64 10^6/uL (4.5-5.90)
[2020-01-30 05:47] LABS: Eosinophils # (auto) 0.2 10 ^3/uL (0-0.8); Eosinophils % (auto) 2.3 % (0.0-7.0); Hematocrit 25.7 % (41.0-53.0); Lymphocytes % (auto) 14.7 % (10.0-50.0); Mean Corpuscular Hemoglobin 34.6 pg (28.0-32.0); Mean Corpuscular Hgb Conc. 35.6 g/dL (32.0-36.0); Mean Corpuscular Volume 97.1 fL (80.0-100.0); Monocytes % (auto) 10.2 % (0.0-12.0); Neutrophils # (auto) 4.8 10 ^3/uL (1.6-8.6); Neutrophils % (auto) 72.2 % (37.0-80.0); Platelet Count (auto) 159 10^3/uL (140-450); Red Cell Distribution Width 13.9 % (11.8-14.3); White Blood Cell 6.7 10^3/uL (4.4-10.8)
[2020-01-30 06:05] LABS: Albumin 3.5 g/dL (3.4-5.0); Calcium 9.3 mg/dL (8.5-10.1); Potassium 3.6 mmol/L (3.5-5.1)
[2020-01-30 06:11] LABS: BUN/Creatinine Ratio 6.1; Bilirubin, Total 0.8 mg/dL (0.2-1.0); Total Protein 6.6 g/dL (6.4-8.2)
[2020-01-30] MEDS ORDERED: SODIUM CHL 0.9% 1000 ML BAG XX ONE (07:00)
[2020-01-30 08:00] VITALS: BP 160/96
[2020-01-30 09:54] VITALS: BP 157/58
[2020-01-30] MEDS: cefTRIAXone 1GM/50ML D5W 50 ML IV SCH (11:12)
[2020-01-30] MEDS: SACUBITRIL-VALSARTAN 24mg/26mg TAB PO SCH ×2 (11:12→21:40)
[2020-01-30] MEDS: AZITHROMYCIN 500MG/ 250ML 250 ML IV SCH (11:12)
[2020-01-30] MEDS: amLODIPine BESYLATE 5 MG TAB PO SCH (11:13)
[2020-01-30] MEDS: ASCORBIC ACID 500 MG TAB PO SCH ×2 (11:14→21:40)
[2020-01-30] MEDS: ASPirin 81 mg TAB PO SCH (11:14)
[2020-01-30] MEDS: FAMOTIDINE 20 MG TAB PO SCH (11:14)
[2020-01-30 13:00] VITALS: BP 163/83
[2020-01-30 16:51] VITALS: BP 151/79
[2020-01-30] MEDS ORDERED: EPOETIN ALFA 4,000 UNIT/ML VL SC ONE (21:00)
[2020-01-30] MEDS: ATORVASTATIN 20 MG TAB PO SCH (21:40)
[2020-01-30] MEDS: HYDROcodone-ACET 5/325MG TAB PO PRN (21:41)
[2020-01-30 22:00] VITALS: BP 153/85
[2020-01-31 05:00] VITALS: BP 143/70
[2020-01-31] MEDS: SODIUM CHLOR 0.9% PF (SALINE LOCK) 10ML VIAL/SYR IV SCH ×3 (05:53→21:51)
[2020-01-31 06:36] LABS: Eosinophils # (auto) 0.4 10 ^3/uL (0-0.8); Monocytes # (auto) 0.6 10 ^3/uL (0-1.3); Neutrophils # (auto) 3.6 10 ^3/uL (1.6-8.6); Nucleated Red Blood Cells % 0.1 %; Platelet Count (auto) 168 10^3/uL (140-450); Red Cell Distribution Width 13.5 % (11.8-14.3); White Blood Cell 5.7 10^3/uL (4.4-10.8)
[2020-01-31 06:39] LABS: Basophils # (auto) 0 10 ^3/uL (0-0.2); Basophils % (auto) 0.8 % (0.0-2.0); Eosinophils % (auto) 6.3 % (0.0-7.0); Hematocrit 24.5 % (41.0-53.0); Hemoglobin 8.9 g/dL (13.5-17.5); Lymphocytes % (auto) 18.1 % (10.0-50.0); Mean Corpuscular Hemoglobin 34.8 pg (28.0-32.0); Mean Corpuscular Hgb Conc. 36.2 g/dL (32.0-36.0); Mean Corpuscular Volume 96.4 fL (80.0-100.0); Neutrophils % (auto) 63.8 % (37.0-80.0); Red Blood Cells 2.54 10^6/uL (4.5-5.90)
[2020-01-31 06:53] LABS: BUN/Creatinine Ratio 7.1; Potassium 3.7 mmol/L (3.5-5.1)
[2020-01-31 09:25] VITALS: BP 156/73
[2020-01-31 12:40] VITALS: BP 128/65
[2020-01-31] MEDS: cefTRIAXone 1GM/50ML D5W 50 ML IV SCH (13:28)
[2020-01-31] MEDS: SACUBITRIL-VALSARTAN 24mg/26mg TAB PO SCH ×2 (13:29→21:51)
[2020-01-31] MEDS: ASPirin 81 mg TAB PO SCH (13:29)
[2020-01-31] MEDS: FAMOTIDINE 20 MG TAB PO SCH (13:30)
[2020-01-31] MEDS: amLODIPine BESYLATE 5 MG TAB PO SCH (13:30)
[2020-01-31] MEDS: ASCORBIC ACID 500 MG TAB PO SCH ×2 (13:30→21:52)
[2020-01-31] MEDS: AZITHROMYCIN 500MG/ 250ML 250 ML IV SCH (14:00)
[2020-01-31 17:00] VITALS: BP 114/48
[2020-01-31] MEDS: ATORVASTATIN 20 MG TAB PO SCH (21:51)
[2020-01-31] MEDS: HYDROcodone-ACET 5/325MG TAB PO PRN (21:58)
[2020-01-31 22:00] VITALS: BP 124/76
[2020-02-01 05:00] VITALS: BP 139/59
[2020-02-01] MEDS: SODIUM CHLOR 0.9% PF (SALINE LOCK) 10ML VIAL/SYR IV SCH ×2 (06:14→13:31)
[2020-02-01 07:00] LABS: Basophils # (auto) 0 10 ^3/uL (0-0.2); Basophils % (auto) 0.7 % (0.0-2.0); Eosinophils # (auto) 0.4 10 ^3/uL (0-0.8); Lymphocytes # (auto) 1.2 10 ^3/uL (0.4-5.4); Monocytes # (auto) 0.6 10 ^3/uL (0-1.3)
[2020-02-01] MEDS ORDERED: SODIUM CHL 0.9% 1000 ML BAG XX ONE (07:00)
[2020-02-01 07:04] LABS: Eosinophils % (auto) 7.3 % (0.0-7.0); Hematocrit 25.6 % (41.0-53.0); Hemoglobin 9.2 g/dL (13.5-17.5); Lymphocytes % (auto) 21.3 % (10.0-50.0); Mean Corpuscular Hemoglobin 34.6 pg (28.0-32.0); Mean Corpuscular Hgb Conc. 35.8 g/dL (32.0-36.0); Mean Corpuscular Volume 96.8 fL (80.0-100.0); Monocytes % (auto) 10.8 % (0.0-12.0); Neutrophils # (auto) 3.4 10 ^3/uL (1.6-8.6); Neutrophils % (auto) 59.9 % (37.0-80.0); Platelet Count (auto) 188 10^3/uL (140-450); Red Blood Cells 2.64 10^6/uL (4.5-5.90); Red Cell Distribution Width 13.5 % (11.8-14.3); White Blood Cell 5.7 10^3/uL (4.4-10.8)
[2020-02-01 07:17] LABS: Potassium 3.5 mmol/L (3.5-5.1)
[2020-02-01 07:25] LABS: BUN/Creatinine Ratio 6.8; Calcium 8.8 mg/dL (8.5-10.1)
[2020-02-01 09:00] VITALS: BP 138/81
[2020-02-01] MEDS ORDERED: DOXY-286 PO (11:28)
[2020-02-01 13:00] VITALS: BP 148/73
[2020-02-01] MEDS: cefTRIAXone 1GM/50ML D5W 50 ML IV SCH (13:05)
[2020-02-01] MEDS: AZITHROMYCIN 500MG/ 250ML 250 ML IV SCH (13:05)
[2020-02-01] MEDS: SACUBITRIL-VALSARTAN 24mg/26mg TAB PO SCH (13:06)
[2020-02-01] MEDS: ASPirin 81 mg TAB PO SCH (13:06)
[2020-02-01] MEDS: FAMOTIDINE 20 MG TAB PO SCH (13:07)
[2020-02-01] MEDS: ASCORBIC ACID 500 MG TAB PO SCH (13:07)
[2020-02-01] MEDS: amLODIPine BESYLATE 5 MG TAB PO SCH (13:07)
[2020-02-01 14:04] VITALS: BP 121/78
[2020-02-01 17:00] VITALS: BP 123/69
[2020-02-01] MEDS ORDERED: EPOETIN ALFA 4,000 UNIT/ML VL SC ONE (21:00)
== END 2020-02-01 19:00 | disposition home or self-care (01) | DRG 194 ==
LOC: EDUNIT# 19:16 → ER 19:16 → EDBD 19:16 → TELE 19:17 → TELE-EAST 01-29 04:43 → TELE-WESTW 01-29 16:57
PROVIDERS: ADMIT Nurse Practitioner Family; ATTEND Internal Medicine Pulmonary Disease
PROC: 5A1D70Z Performance of Urinary Filtration, Intermittent, Less than 6 Hours Per Day (ICD-10-PCS; principal; 2020-01-29)
PROC: 5A1D70Z Performance of Urinary Filtration, Intermittent, Less than 6 Hours Per Day (ICD-10-PCS; 2020-01-30)
PROC: 5A1D70Z Performance of Urinary Filtration, Intermittent, Less than 6 Hours Per Day (ICD-10-PCS; 2020-01-31)
DX: I13.2 Hypertensive heart and chronic kidney disease with heart failure and with stage 5 chronic kidney disease, or end stage renal disease (principal); I21.A1 Myocardial infarction type 2; J96.01 Acute respiratory failure with hypoxia; I50.23 Acute on chronic systolic (congestive) heart failure; J18.9 Pneumonia, unspecified organism; N18.6 End stage renal disease; E11.649 Type 2 diabetes mellitus with hypoglycemia without coma; E11.22 Type 2 diabetes mellitus with diabetic chronic kidney disease; M19.90 Unspecified osteoarthritis, unspecified site; F17.200 Nicotine dependence, unspecified, uncomplicated; E87.1 Hypo-osmolality and hyponatremia; D63.1 Anemia in chronic kidney disease; J44.0 Chronic obstructive pulmonary disease with (acute) lower respiratory infection; F32.9 Major depressive disorder, single episode, unspecified; J44.1 Chronic obstructive pulmonary disease with (acute) exacerbation; Z99.2 Dependence on renal dialysis; Z80.0 Family history of malignant neoplasm of digestive organs; Z80.1 Family history of malignant neoplasm of trachea, bronchus and lung; Z80.42 Family history of malignant neoplasm of prostate; Z80.7 Family history of other malignant neoplasms of lymphoid, hematopoietic and related tissues; Z79.899 Other long term (current) drug therapy; Z20.828 Contact with and (suspected) exposure to other viral communicable diseases
CPT/HCPCS: 36415; 36600; 71045; 80048; 80053; 80061; 82805; 83605; 83735; 83880; 84484; 85025; 85379; 85610; 85730; 87040; 87081; 87426; 90935; 93005; 94640; 96374; 96375; G0378; J0696

== ENCOUNTER 2021-03-07 05:10 | Inpatient (IN) | payer MEDICARE, MEDICAID ==
[~2021-03-07] VITALS: Ht 165.1 cm; Wt 84.7 kg
[~2021-03-07 05:10] MED LIST changes: +ATOR40TA52 PO; -B-CO1CAP6 PO; -CITA10TA59 PO; +CITA10TA8 PO; +LISI2.5T47 PO; -SERT-274 PO; -SEVE800T8 PO
[2021-03-07 08:40] LABS: Basophils # (auto) 0 10 ^3/uL (0-0.2); Basophils % (auto) 0.4 % (0.0-2.0); Eosinophils # (auto) 0.2 10 ^3/uL (0-0.8); Eosinophils % (auto) 2.6 % (0.0-7.0); Hematocrit 30.1 % (41.0-53.0); Hemoglobin 10.1 g/dL (13.5-17.5); Lymphocytes # (auto) 1.3 10 ^3/uL (0.4-5.4); Lymphocytes % (auto) 21.1 % (10.0-50.0); Mean Corpuscular Hemoglobin 31.6 pg (28.0-32.0); Mean Corpuscular Hgb Conc. 33.5 g/dL (32.0-36.0); Mean Corpuscular Volume 94.5 fL (80.0-100.0); Monocytes # (auto) 0.8 10 ^3/uL (0-1.3); Monocytes % (auto) 12.7 % (0.0-12.0); Neutrophils # (auto) 3.8 10 ^3/uL (1.6-8.6); Neutrophils % (auto) 63.2 % (37.0-80.0); Red Blood Cells 3.19 10^6/uL (4.5-5.90); Red Cell Distribution Width 14.6 % (11.8-14.3); White Blood Cell 6.1 10^3/uL (4.4-10.8)
[2021-03-07 08:51] LABS: Albumin 3.2 g/dL (3.4-5.0); Calcium 8.5 mg/dL (8.5-10.1); Potassium 3.6 mmol/L (3.5-5.1)
[2021-03-07 08:55] LABS: BUN/Creatinine Ratio 6.2; Bilirubin, Total 0.5 mg/dL (0.2-1.0); Total Protein 7.9 g/dL (6.4-8.2)
[2021-03-07] MEDS ORDERED: NITROGLYCERIN 0.4 MG SL TAB SL PRN ×2 (14:00→16:30)
[2021-03-07] MEDS ORDERED: MORPHINE SULFATE INJECTION 2 MG/ML SYRG IV PRN ×3 (14:00→16:30)
[2021-03-07] MEDS ORDERED: AMLO-489 PO (14:12)
[2021-03-07] MEDS ORDERED: SEVE800T20 PO (14:12)
[2021-03-07] MEDS ORDERED: CITA-77 PO (14:12)
[2021-03-07] MEDS ORDERED: CEFTRIAXONE SODIUM 2 GM in D5W 5% 50 ML IV ONE (16:15)
[2021-03-07] MEDS ORDERED: VANCOMYCIN PER PHARMACY 0 MG IV SCH (16:15)
[2021-03-07] MEDS ORDERED: ALUM & MAG HYDROX-SIMETH LIQ(MAALOX) 30 ML PO PRN (16:30)
[2021-03-07] MEDS ORDERED: LORazepam 0.5 MG TAB PO PRN (16:30)
[2021-03-07] MEDS ORDERED: ONDANSETRON HCL 4 MG/2 ML VIAL IV PRN (16:30)
[2021-03-07] MEDS ORDERED: ACETAMINOPHEN 325 MG TAB PO PRN (16:30)
[2021-03-07] MEDS ORDERED: DEXTROSE (50%) 50ML SYRG IV PRN (16:45)
[2021-03-07] MEDS ORDERED: VANCOMYCIN 1GM/250ML 250 ML IV ONE (17:30)
[2021-03-07] MEDS: SODIUM CHLORIDE 0.9% 1,000 ML IV SCH (18:01)
[2021-03-07] MEDS: ACCU-CHEK COMFORT CURVE STRIP VI SCH (18:20)
[2021-03-07] MEDS: InsuLIN REG 1unit/0.01ml Soln (100units/ml) SC SCH (18:22)
[2021-03-07 19:11] LABS: Cholesterol 97 mg/dL (< 200); HDL Cholesterol 49 mg/dL (40-59); Triglycerides 73 mg/dL (< 150)
[2021-03-07 19:12] LABS: LDL Cholesterol 37 mg/dL (< 100)
[2021-03-07] MEDS ORDERED: InsuLIN REG 1unit/0.01ml Soln (100units/ml) SC SCH (22:00)
[2021-03-07 22:45] VITALS: BP 142/62
[2021-03-08] VITALS (8 sets, daily range): BP systolic 102–153; BP diastolic 62–79
[2021-03-08] MEDS: ATORVASTATIN 20 MG TAB PO SCH ×2 (00:18→22:32)
[2021-03-08] MEDS: ACCU-CHEK COMFORT CURVE STRIP VI SCH ×3 (00:18→11:56)
[2021-03-08] MEDS: SACUBITRIL-VALSARTAN 24mg/26mg TAB PO SCH ×3 (00:19→22:32)
[2021-03-08] MEDS ORDERED: HYDR-4833 PO (04:01)
[2021-03-08] MEDS: InsuLIN REG 1unit/0.01ml Soln (100units/ml) SC SCH ×2 (06:44→11:30)
[2021-03-08 07:06] LABS: Basophils # (auto) 0 10 ^3/uL (0-0.2); Basophils % (auto) 0.4 % (0.0-2.0); Eosinophils # (auto) 0.2 10 ^3/uL (0-0.8); Hematocrit 27.1 % (41.0-53.0); Hemoglobin 9.4 g/dL (13.5-17.5); Lymphocytes # (auto) 0.9 10 ^3/uL (0.4-5.4); Lymphocytes % (auto) 19.2 % (10.0-50.0); Mean Corpuscular Hemoglobin 32.6 pg (28.0-32.0); Mean Corpuscular Hgb Conc. 34.8 g/dL (32.0-36.0); Mean Corpuscular Volume 93.7 fL (80.0-100.0); Monocytes # (auto) 0.5 10 ^3/uL (0-1.3); Monocytes % (auto) 11.2 % (0.0-12.0); Neutrophils # (auto) 3.1 10 ^3/uL (1.6-8.6); Neutrophils % (auto) 65.2 % (37.0-80.0); Nucleated Red Blood Cells % 0.2 %; Red Blood Cells 2.89 10^6/uL (4.5-5.90); Red Cell Distribution Width 14.1 % (11.8-14.3); White Blood Cell 4.8 10^3/uL (4.4-10.8)
[2021-03-08 07:30] LABS: Potassium 3.7 mmol/L (3.5-5.1)
[2021-03-08 07:40] LABS: INR 1.16 (0.9-1.15)
[2021-03-08 07:52] LABS: Albumin 2.5 g/dL (3.4-5.0); BUN/Creatinine Ratio 6.8; Bilirubin, Total 0.4 mg/dL (0.2-1.0); Calcium 8.3 mg/dL (8.5-10.1); Magnesium 2.5 mg/dL (1.6-2.6); Uric Acid 4.5 mg/dL (3.5-7.2)
[2021-03-08] MEDS: SEVELAMER 800 MG TAB PO SCH ×3 (08:00→18:00)
[2021-03-08] MEDS: SODIUM CHLORIDE 0.9% 1,000 ML IV SCH (08:55)
[2021-03-08] MEDS ORDERED: ENOXAPARIN SOD 30 MG/0.3 ML SYRINGE SC SCH (10:00)
[2021-03-08] MEDS: amLODIPine BESYLATE 5 MG TAB PO SCH (10:58)
[2021-03-08] MEDS: CITALOPRAM HYDROBR 20 MG TAB PO SCH (10:59)
[2021-03-08] MEDS: CEFTRIAXONE SODIUM 2 GM in D5W 5% 50 ML IV SCH (11:09)
[2021-03-08] MEDS ORDERED: CHOLECALCIFEROL (VITD3) 2,000 UNIT CAP/TAB PO ONE (15:30)
[2021-03-08] MEDS: DOCUSATE SOD 100 MG CAP PO PRN (22:32)
[2021-03-09] VITALS (8 sets, daily range): BP systolic 111–157; BP diastolic 55–92
[2021-03-09] MEDS: SODIUM CHLORIDE 0.9% 1,000 ML IV SCH ×2 (03:42→18:08)
[2021-03-09] MEDS ORDERED: SODIUM CHL 0.9% 1000 ML BAG XX ONE (07:00)
[2021-03-09 07:21] LABS: Basophils # (auto) 0 10 ^3/uL (0-0.2); Basophils % (auto) 0.6 % (0.0-2.0); Eosinophils # (auto) 0.3 10 ^3/uL (0-0.8); Eosinophils % (auto) 5.1 % (0.0-7.0); Hematocrit 28.1 % (41.0-53.0); Hemoglobin 9.6 g/dL (13.5-17.5); Lymphocytes # (auto) 1.2 10 ^3/uL (0.4-5.4); Lymphocytes % (auto) 22.3 % (10.0-50.0); Mean Corpuscular Hemoglobin 32.3 pg (28.0-32.0); Mean Corpuscular Hgb Conc. 34.3 g/dL (32.0-36.0); Mean Corpuscular Volume 94.1 fL (80.0-100.0); Monocytes # (auto) 0.6 10 ^3/uL (0-1.3); Monocytes % (auto) 10.8 % (0.0-12.0); Neutrophils # (auto) 3.3 10 ^3/uL (1.6-8.6); Neutrophils % (auto) 61.2 % (37.0-80.0); Red Blood Cells 2.98 10^6/uL (4.5-5.90); White Blood Cell 5.4 10^3/uL (4.4-10.8)
[2021-03-09 07:36] LABS: Calcium 8.4 mg/dL (8.5-10.1); Potassium 3.7 mmol/L (3.5-5.1)
[2021-03-09 07:45] LABS: CRP High Sensitivity 6.14 mg/dL (< 0.3)
[2021-03-09] MEDS: SEVELAMER 800 MG TAB PO SCH ×3 (08:00→18:08)
[2021-03-09 08:01] LABS: BUN/Creatinine Ratio 6.3
[2021-03-09] MEDS: CEFTRIAXONE SODIUM 2 GM in D5W 5% 50 ML IV SCH (09:35)
[2021-03-09] MEDS: SACUBITRIL-VALSARTAN 24mg/26mg TAB PO SCH ×2 (10:00→21:40)
[2021-03-09] MEDS: amLODIPine BESYLATE 5 MG TAB PO SCH (10:00)
[2021-03-09] MEDS: CHOLECALCIFEROL (VITD3) 2,000 UNIT CAP/TAB PO SCH (10:00)
[2021-03-09] MEDS: CITALOPRAM HYDROBR 20 MG TAB PO SCH (10:00)
[2021-03-09] MEDS ORDERED: VANCOMYCIN HCL 1000 MG VL ONE (12:23)
[2021-03-09] MEDS ORDERED: TOBRAMYCIN SULFATE 40 MG/ML 2ML VIAL IV ONE (12:30)
[2021-03-09] MEDS ORDERED: TOBRAMYCIN PER PHARMACY 0 ML IV SCH (12:30)
[2021-03-09] MEDS ORDERED: EPINEPHrine HCL 1 MG/1 ML AMP ONE ×2 (13:03→15:02)
[2021-03-09] MEDS ORDERED: TRANEXAMIC ACID 20 ML ONE (13:07)
[2021-03-09] MEDS ORDERED: TETRACAINE 1% INJ 2 ML VIAL IJ ONE (13:23)
[2021-03-09] MEDS ORDERED: fentaNYL CITRATE 100 MCG/2 ML VL ONE (13:25)
[2021-03-09] MEDS ORDERED: MIDAZOLAM HCL 2MG/2ML 2ml VIAL (1mg/ml) ONE (13:25)
[2021-03-09] MEDS ORDERED: MORPHINE SULF PF 2 MG/2 ML SYRG ONE (13:25)
[2021-03-09] MEDS ORDERED: PROPOFOL 10 MG/ML 20 ML IV ONE (13:49)
[2021-03-09] MEDS ORDERED: DexAMETHasone SOD PHOS 10MG/1ML VIAL INJ IV PRN (14:45)
[2021-03-09] MEDS ORDERED: NALBUPHINE HCL 10 MG/1ml INJECTION SUBCUT ONE (14:45)
[2021-03-09] MEDS ORDERED: KETOROLAC TROMETH 30 MG/ML 1ML VIAL IV PRN (14:45)
[2021-03-09] MEDS ORDERED: HYDROmorphone HCL 2 MG/ML VL IV PRN (14:45)
[2021-03-09] MEDS ORDERED: NALOXONE HCL 0.4 MG/ML VIAL IV PRN (14:45)
[2021-03-09] MEDS ORDERED: ONDANSETRON HCL 4 MG/2 ML VIAL IV PRN (14:45)
[2021-03-09] MEDS ORDERED: diphenhdrAMINE HCL 50 MG/1 ML VL IV PRN (14:45)
[2021-03-09] MEDS ORDERED: VANCOMYCIN 1GM/250ML 250 ML IV ONE (16:00)
[2021-03-09] MEDS ORDERED: EPOETIN ALFA-EPBX 4,000 UNIT/ML VIAL SC ONE (21:00)
[2021-03-09] MEDS: ATORVASTATIN 20 MG TAB PO SCH (21:42)
[2021-03-09] MEDS: HYDROcodone-ACET 5/325MG TAB PO PRN (21:43)
[2021-03-10] VITALS (19 sets, daily range): BP systolic 103–153; BP diastolic 50–90
[2021-03-10 06:38] LABS: Basophils # (auto) 0 10 ^3/uL (0-0.2); Basophils % (auto) 0.6 % (0.0-2.0); Eosinophils # (auto) 0.2 10 ^3/uL (0-0.8); Monocytes # (auto) 0.8 10 ^3/uL (0-1.3); White Blood Cell 7.3 10^3/uL (4.4-10.8)
[2021-03-10 06:41] LABS: Eosinophils % (auto) 3.1 % (0.0-7.0); Hematocrit 21.7 % (41.0-53.0); Hemoglobin 7.4 g/dL (13.5-17.5); Mean Corpuscular Hgb Conc. 33.9 g/dL (32.0-36.0); Mean Corpuscular Volume 94.5 fL (80.0-100.0); Monocytes % (auto) 10.7 % (0.0-12.0); Neutrophils # (auto) 5.2 10 ^3/uL (1.6-8.6); Neutrophils % (auto) 71.6 % (37.0-80.0); Red Cell Distribution Width 14.1 % (11.8-14.3)
[2021-03-10 06:55] LABS: Calcium 8.2 mg/dL (8.5-10.1); Potassium 4.8 mmol/L (3.5-5.1)
[2021-03-10] MEDS: HYDROcodone-ACET 5/325MG TAB PO PRN ×2 (06:57→21:42)
[2021-03-10 06:58] LABS: BUN/Creatinine Ratio 6.4
[2021-03-10] MEDS ORDERED: SODIUM CHL 0.9% 1000 ML BAG XX ONE (07:00)
[2021-03-10] MEDS: SACUBITRIL-VALSARTAN 24mg/26mg TAB PO SCH ×2 (08:43→21:40)
[2021-03-10] MEDS: CHOLECALCIFEROL (VITD3) 2,000 UNIT CAP/TAB PO SCH (08:43)
[2021-03-10] MEDS: ENOXAPARIN SOD 30 MG/0.3 ML SYRINGE SC SCH (08:43)
[2021-03-10] MEDS: CEFTRIAXONE SODIUM 2 GM in D5W 5% 50 ML IV SCH (08:43)
[2021-03-10] MEDS: CITALOPRAM HYDROBR 20 MG TAB PO SCH (08:44)
[2021-03-10] MEDS: amLODIPine BESYLATE 5 MG TAB PO SCH (08:44)
[2021-03-10] MEDS: SEVELAMER 800 MG TAB PO SCH ×3 (08:44→17:53)
[2021-03-10] MEDS: SODIUM CHLORIDE 0.9% 1,000 ML IV SCH ×2 (08:46→13:33)
[2021-03-10] MEDS ORDERED: LIDOCAINE 1% (LOCAL ANESTH.) PF 5ml SDV ID ONE (10:45)
[2021-03-10] MEDS ORDERED: VANCOMYCIN 1GM/250ML 250 ML IV ONE (20:00)
[2021-03-10] MEDS ORDERED: EPOETIN ALFA-EPBX 4,000 UNIT/ML VIAL SC ONE (21:00)
[2021-03-10] MEDS: SODIUM CHLOR 0.9% PF (SALINE LOCK) 10ML VIAL/SYR IV SCH (21:40)
[2021-03-10] MEDS: ATORVASTATIN 20 MG TAB PO SCH (21:41)
[2021-03-11] VITALS (11 sets, daily range): BP systolic 119–142; BP diastolic 35–89
[2021-03-11 08:10] LABS: Basophils # (auto) 0 10 ^3/uL (0-0.2); Basophils % (auto) 0.4 % (0.0-2.0); Eosinophils # (auto) 0.2 10 ^3/uL (0-0.8); Lymphocytes # (auto) 0.6 10 ^3/uL (0.4-5.4); Nucleated Red Blood Cells % 0.1 %
[2021-03-11 08:14] LABS: Eosinophils % (auto) 4.4 % (0.0-7.0); Hematocrit 18.1 % (41.0-53.0); Lymphocytes % (auto) 14.4 % (10.0-50.0); Mean Corpuscular Hemoglobin 32.2 pg (28.0-32.0); Mean Corpuscular Hgb Conc. 34.5 g/dL (32.0-36.0); Mean Corpuscular Volume 93.3 fL (80.0-100.0); Monocytes # (auto) 0.7 10 ^3/uL (0-1.3); Monocytes % (auto) 17.6 % (0.0-12.0); Neutrophils # (auto) 2.7 10 ^3/uL (1.6-8.6); Neutrophils % (auto) 63.2 % (37.0-80.0); Red Blood Cells 1.94 10^6/uL (4.5-5.90); Red Cell Distribution Width 14.2 % (11.8-14.3); White Blood Cell 4.3 10^3/uL (4.4-10.8)
[2021-03-11 08:40] LABS: Hemoglobin 6.3 g/dL (13.5-17.5)
[2021-03-11] MEDS: SEVELAMER 800 MG TAB PO SCH ×3 (08:46→17:58)
[2021-03-11] MEDS: CEFTRIAXONE SODIUM 2 GM in D5W 5% 50 ML IV SCH (08:46)
[2021-03-11] MEDS: ENOXAPARIN SOD 30 MG/0.3 ML SYRINGE SC SCH (08:47)
[2021-03-11] MEDS: SODIUM CHLOR 0.9% PF (SALINE LOCK) 10ML VIAL/SYR IV SCH ×2 (08:47→21:52)
[2021-03-11] MEDS: CHOLECALCIFEROL (VITD3) 2,000 UNIT CAP/TAB PO SCH (08:48)
[2021-03-11] MEDS: SACUBITRIL-VALSARTAN 24mg/26mg TAB PO SCH ×2 (08:49→21:53)
[2021-03-11] MEDS: amLODIPine BESYLATE 5 MG TAB PO SCH (08:49)
[2021-03-11] MEDS: CITALOPRAM HYDROBR 20 MG TAB PO SCH (08:49)
[2021-03-11] MEDS ORDERED: diphenhdrAMINE HCL 25 MG CAP PO PRN (09:15)
[2021-03-11 09:28] LABS: Calcium 8.1 mg/dL (8.5-10.1); Potassium 3.9 mmol/L (3.5-5.1)
[2021-03-11] MEDS ORDERED: ACETAMINOPHEN 325 MG TAB PO PRN (10:00)
[2021-03-11] MEDS: HYDROcodone-ACET 5/325MG TAB PO PRN ×2 (11:54→17:58)
[2021-03-11] MEDS: SODIUM CHLORIDE 0.9% 1,000 ML IV SCH (17:57)
[2021-03-11] MEDS: ATORVASTATIN 20 MG TAB PO SCH (21:53)
[2021-03-12] VITALS (11 sets, daily range): BP systolic 135–150; BP diastolic 42–68
[2021-03-12] MEDS: SODIUM CHLORIDE 0.9% 1,000 ML IV SCH (06:05)
[2021-03-12 07:13] LABS: Basophils # (auto) 0 10 ^3/uL (0-0.2); Eosinophils # (auto) 0.4 10 ^3/uL (0-0.8); Lymphocytes # (auto) 0.9 10 ^3/uL (0.4-5.4); Monocytes # (auto) 0.7 10 ^3/uL (0-1.3); Red Blood Cells 2.11 10^6/uL (4.5-5.90)
[2021-03-12 07:17] LABS: Basophils % (auto) 0.3 % (0.0-2.0); Eosinophils % (auto) 7.2 % (0.0-7.0); Hematocrit 19.5 % (41.0-53.0); Mean Corpuscular Hemoglobin 32.2 pg (28.0-32.0); Mean Corpuscular Hgb Conc. 34.8 g/dL (32.0-36.0); Mean Corpuscular Volume 92.5 fL (80.0-100.0); Monocytes % (auto) 12.3 % (0.0-12.0); Neutrophils # (auto) 3.5 10 ^3/uL (1.6-8.6); Neutrophils % (auto) 63.2 % (37.0-80.0); White Blood Cell 5.5 10^3/uL (4.4-10.8)
[2021-03-12 07:24] LABS: Hemoglobin 6.9 g/dL (13.5-17.5); Potassium 4.3 mmol/L (3.5-5.1)
[2021-03-12 07:33] LABS: BUN/Creatinine Ratio 6.2
[2021-03-12] MEDS: SEVELAMER 800 MG TAB PO SCH ×3 (08:38→17:39)
[2021-03-12] MEDS: CEFTRIAXONE SODIUM 2 GM in D5W 5% 50 ML IV SCH (08:38)
[2021-03-12] MEDS: SODIUM CHLOR 0.9% PF (SALINE LOCK) 10ML VIAL/SYR IV SCH ×2 (09:44→22:16)
[2021-03-12] MEDS: CITALOPRAM HYDROBR 20 MG TAB PO SCH (09:44)
[2021-03-12] MEDS: SACUBITRIL-VALSARTAN 24mg/26mg TAB PO SCH ×2 (09:44→22:16)
[2021-03-12] MEDS: CHOLECALCIFEROL (VITD3) 2,000 UNIT CAP/TAB PO SCH (09:44)
[2021-03-12] MEDS: ENOXAPARIN SOD 30 MG/0.3 ML SYRINGE SC SCH (09:44)
[2021-03-12] MEDS: amLODIPine BESYLATE 5 MG TAB PO SCH (09:45)
[2021-03-12] MEDS: HYDROcodone-ACET 5/325MG TAB PO PRN ×2 (09:46→17:40)
[2021-03-12] MEDS: DOCUSATE SOD 100 MG CAP PO PRN (17:40)
[2021-03-12] MEDS: ATORVASTATIN 20 MG TAB PO SCH (22:17)
[2021-03-13] MEDS: SODIUM CHLORIDE 0.9% 1,000 ML IV SCH (01:30)
[2021-03-13 04:57] VITALS: BP 150/47
[2021-03-13] MEDS ORDERED: SODIUM CHL 0.9% 1000 ML BAG XX ONE (07:00)
[2021-03-13 07:51] LABS: Basophils # (auto) 0 10 ^3/uL (0-0.2); Hemoglobin 8.3 g/dL (13.5-17.5); Lymphocytes % (auto) 14.2 % (10.0-50.0); Monocytes # (auto) 0.6 10 ^3/uL (0-1.3)
[2021-03-13 07:54] LABS: Basophils % (auto) 0.3 % (0.0-2.0); Eosinophils # (auto) 0.5 10 ^3/uL (0-0.8); Eosinophils % (auto) 6.8 % (0.0-7.0); Hematocrit 23.9 % (41.0-53.0); Mean Corpuscular Hemoglobin 31.8 pg (28.0-32.0); Mean Corpuscular Hgb Conc. 34.8 g/dL (32.0-36.0); Mean Corpuscular Volume 91.4 fL (80.0-100.0); Monocytes % (auto) 8.5 % (0.0-12.0); Neutrophils # (auto) 4.9 10 ^3/uL (1.6-8.6); Neutrophils % (auto) 70.2 % (37.0-80.0); Red Blood Cells 2.62 10^6/uL (4.5-5.90); Red Cell Distribution Width 14.9 % (11.8-14.3)
[2021-03-13 08:08] LABS: Potassium 4.6 mmol/L (3.5-5.1)
[2021-03-13 08:15] LABS: BUN/Creatinine Ratio 6.5; Calcium 8.6 mg/dL (8.5-10.1)
[2021-03-13 09:00] VITALS: BP 153/60
[2021-03-13] MEDS: SACUBITRIL-VALSARTAN 24mg/26mg TAB PO SCH ×2 (09:58→22:19)
[2021-03-13] MEDS: CHOLECALCIFEROL (VITD3) 2,000 UNIT CAP/TAB PO SCH (09:58)
[2021-03-13] MEDS: amLODIPine BESYLATE 5 MG TAB PO SCH (09:59)
[2021-03-13] MEDS: ENOXAPARIN SOD 30 MG/0.3 ML SYRINGE SC SCH (10:00)
[2021-03-13] MEDS: CITALOPRAM HYDROBR 20 MG TAB PO SCH (10:00)
[2021-03-13] MEDS: HYDROcodone-ACET 5/325MG TAB PO PRN ×3 (10:13→22:30)
[2021-03-13] MEDS: SODIUM CHLOR 0.9% PF (SALINE LOCK) 10ML VIAL/SYR IV SCH ×2 (10:15→22:19)
[2021-03-13] MEDS: CEFTRIAXONE SODIUM 2 GM in D5W 5% 50 ML IV SCH (10:17)
[2021-03-13] MEDS: SEVELAMER 800 MG TAB PO SCH ×3 (10:17→17:48)
[2021-03-13 13:00] VITALS: BP 138/61
[2021-03-13 17:00] VITALS: BP 147/56
[2021-03-13] MEDS ORDERED: VANCOMYCIN 500 MG in D5W 5% 100 ML IV ONE (20:00)
[2021-03-13] MEDS ORDERED: EPOETIN ALFA-EPBX 10,000 UNIT/1ML VIAL SC ONE (21:00)
[2021-03-13 22:00] VITALS: BP 148/85
[2021-03-13] MEDS: ATORVASTATIN 20 MG TAB PO SCH (22:19)
[2021-03-14 05:00] VITALS: BP 100/87
[2021-03-14 07:37] LABS: Hemoglobin 7.8 g/dL (13.5-17.5)
[2021-03-14 07:39] LABS: Hematocrit 22.9 % (41.0-53.0)
[2021-03-14 08:00] VITALS: BP 142/51
[2021-03-14 09:00] VITALS: BP 142/51
[2021-03-14] MEDS: CEFTRIAXONE SODIUM 2 GM in D5W 5% 50 ML IV SCH (10:02)
[2021-03-14] MEDS: SEVELAMER 800 MG TAB PO SCH ×3 (10:02→18:54)
[2021-03-14] MEDS: SODIUM CHLOR 0.9% PF (SALINE LOCK) 10ML VIAL/SYR IV SCH ×2 (10:03→21:29)
[2021-03-14] MEDS: SACUBITRIL-VALSARTAN 24mg/26mg TAB PO SCH ×2 (10:03→21:29)
[2021-03-14] MEDS: amLODIPine BESYLATE 5 MG TAB PO SCH (10:03)
[2021-03-14] MEDS: CITALOPRAM HYDROBR 20 MG TAB PO SCH (10:03)
[2021-03-14] MEDS: ENOXAPARIN SOD 30 MG/0.3 ML SYRINGE SC SCH (10:04)
[2021-03-14] MEDS: CHOLECALCIFEROL (VITD3) 2,000 UNIT CAP/TAB PO SCH (10:04)
[2021-03-14] MEDS: HYDROcodone-ACET 5/325MG TAB PO PRN ×2 (10:21→21:34)
[2021-03-14 13:00] VITALS: BP 142/51
[2021-03-14] MEDS ORDERED: SACC250C PO (14:13)
[2021-03-14] MEDS ORDERED: CHOL20007 PO (14:13)
[2021-03-14 17:23] VITALS: BP 147/70
[2021-03-14] MEDS: ATORVASTATIN 20 MG TAB PO SCH (21:29)
[2021-03-14 22:00] VITALS: BP 145/81
[2021-03-15 05:00] VITALS: BP 115/44
[2021-03-15] MEDS ORDERED: SODIUM CHL 0.9% 1000 ML BAG XX ONE (07:00)
[2021-03-15 09:00] VITALS: BP 147/58
[2021-03-15] MEDS: SACUBITRIL-VALSARTAN 24mg/26mg TAB PO SCH (10:28)
[2021-03-15] MEDS: CEFTRIAXONE SODIUM 2 GM in D5W 5% 50 ML IV SCH (10:28)
[2021-03-15] MEDS: SODIUM CHLOR 0.9% PF (SALINE LOCK) 10ML VIAL/SYR IV SCH (10:28)
[2021-03-15] MEDS: CITALOPRAM HYDROBR 20 MG TAB PO SCH (10:28)
[2021-03-15] MEDS: SEVELAMER 800 MG TAB PO SCH ×3 (10:28→17:41)
[2021-03-15] MEDS: CHOLECALCIFEROL (VITD3) 2,000 UNIT CAP/TAB PO SCH (10:29)
[2021-03-15] MEDS: ENOXAPARIN SOD 30 MG/0.3 ML SYRINGE SC SCH (10:29)
[2021-03-15] MEDS: amLODIPine BESYLATE 5 MG TAB PO SCH (10:29)
[2021-03-15 13:00] VITALS: BP 156/44
[2021-03-15] MEDS: HYDROcodone-ACET 5/325MG TAB PO PRN (13:40)
[2021-03-15 14:57] VITALS: BP 156/44
[2021-03-15] MEDS ORDERED: VANCOMYCIN 500 MG in D5W 5% 100 ML IV ONE (16:00)
[2021-03-15] MEDS ORDERED: EPOETIN ALFA-EPBX 4,000 UNIT/ML VIAL SC ONE ×2 (16:30→21:00)
[2021-03-15 17:00] VITALS: BP 128/59
== END 2021-03-15 18:55 | disposition home health service (06) | DRG 323 ==
LOC: ER 05:10 → OVERFLOW 14:00 → WEST WING 22:47 → TELE-WESTW 03-09 19:33
PROVIDERS: ADMIT Hospitalist; ATTEND Internal Medicine
PROC: 0S993ZX Drainage of Right Hip Joint, Percutaneous Approach, Diagnostic (ICD-10-PCS; 2021-03-08)
PROC: 5A1D70Z Performance of Urinary Filtration, Intermittent, Less than 6 Hours Per Day (ICD-10-PCS; 2021-03-08)
PROC: 0SPA0JZ Removal of Synthetic Substitute from Right Hip Joint, Acetabular Surface, Open Approach (ICD-10-PCS; 2021-03-09)
PROC: 0SRA0JZ Replacement of Right Hip Joint, Acetabular Surface with Synthetic Substitute, Open Approach (ICD-10-PCS; principal; 2021-03-09 13:20)
PROC: 02HV33Z Insertion of Infusion Device into Superior Vena Cava, Percutaneous Approach (ICD-10-PCS; 2021-03-10)
PROC: 5A1D70Z Performance of Urinary Filtration, Intermittent, Less than 6 Hours Per Day (ICD-10-PCS; 2021-03-10)
PROC: 30233N1 Transfusion of Nonautologous Red Blood Cells into Peripheral Vein, Percutaneous Approach (ICD-10-PCS; 2021-03-11)
PROC: 5A1D70Z Performance of Urinary Filtration, Intermittent, Less than 6 Hours Per Day (ICD-10-PCS; 2021-03-13)
PROC: 5A1D70Z Performance of Urinary Filtration, Intermittent, Less than 6 Hours Per Day (ICD-10-PCS; 2021-03-15)
DX: T84.51XA Infection and inflammatory reaction due to internal right hip prosthesis, initial encounter (principal); I13.2 Hypertensive heart and chronic kidney disease with heart failure and with stage 5 chronic kidney disease, or end stage renal disease; N18.6 End stage renal disease; M00.9 Pyogenic arthritis, unspecified; E11.22 Type 2 diabetes mellitus with diabetic chronic kidney disease; D62 Acute posthemorrhagic anemia; D63.1 Anemia in chronic kidney disease; L02.818 Cutaneous abscess of other sites; E11.65 Type 2 diabetes mellitus with hyperglycemia; E78.5 Hyperlipidemia, unspecified; F32.9 Major depressive disorder, single episode, unspecified; Z79.4 Long term (current) use of insulin; I25.5 Ischemic cardiomyopathy; Z99.2 Dependence on renal dialysis; E55.9 Vitamin D deficiency, unspecified; I50.42 Chronic combined systolic (congestive) and diastolic (congestive) heart failure; M10.9 Gout, unspecified; Z20.822 Contact with and (suspected) exposure to COVID-19; F17.200 Nicotine dependence, unspecified, uncomplicated; J44.9 Chronic obstructive pulmonary disease, unspecified; K59.00 Constipation, unspecified; Z96.641 Presence of right artificial hip joint; Y83.8 Other surgical procedures as the cause of abnormal reaction of the patient, or of later complication, without mention of misadventure at the time of the procedure; M06.9 Rheumatoid arthritis, unspecified; Z80.0 Family history of malignant neoplasm of digestive organs; Z80.1 Family history of malignant neoplasm of trachea, bronchus and lung; Z80.42 Family history of malignant neoplasm of prostate; Z80.7 Family history of other malignant neoplasms of lymphoid, hematopoietic and related tissues; Y92.89 Other specified places as the place of occurrence of the external cause; Z85.46 Personal history of malignant neoplasm of prostate; Z85.71 Personal history of Hodgkin lymphoma; Z85.038 Personal history of other malignant neoplasm of large intestine; E44.1 Mild protein-calorie malnutrition
CPT/HCPCS: 36415; 36569; 71045; 72170; 74176; 76881; 76942; 80048; 80053; 80061; 80202; 82306; 82962; 83036; 83605; 83735; 83880; 84100; 84443; 84484; 84550; 85014; 85018; 85025; 85379; 85610; 85652; 85730; 86141; 86850; 86900; 86901; 86920; 87040; 87075; 87081; 87205; 87340; 87426; 90935; 97110; 97116; 97163; 97530; G0378; J0171; J0696; J1885; J2250; J2405; J2704; J7060

== ENCOUNTER 2021-03-16 21:44 | Emergency (ER) | payer MEDICARE, MEDICAID ==
[~2021-03-16] VITALS: Ht 172.7 cm; Wt 77.1 kg
[~2021-03-16 21:44] MED LIST changes: -AML5T PO; +AMLO-489 PO; +CHOL20007 PO; +CITA-77 PO; -CITA10TA8 PO; -DOXY-286 PO; +HYDR-4833 PO; -LISI2.5T47 PO; +SACC250C PO; +SEVE800T20 PO
[2021-03-17 06:38] LABS: Basophils # (auto) 0.1 10 ^3/uL (0-0.2); Basophils % (auto) 0.7 % (0.0-2.0); Eosinophils # (auto) 0.7 10 ^3/uL (0-0.8); Eosinophils % (auto) 8.5 % (0.0-7.0); Hemoglobin 8.5 g/dL (13.5-17.5); Lymphocytes % (auto) 12.9 % (10.0-50.0); Mean Corpuscular Volume 91.2 fL (80.0-100.0); Monocytes # (auto) 0.8 10 ^3/uL (0-1.3); Monocytes % (auto) 10.3 % (0.0-12.0); Neutrophils # (auto) 5.1 10 ^3/uL (1.6-8.6); Neutrophils % (auto) 67.6 % (37.0-80.0); Red Blood Cells 2.75 10^6/uL (4.5-5.90); Red Cell Distribution Width 14.8 % (11.8-14.3); White Blood Cell 7.6 10^3/uL (4.4-10.8)
[2021-03-17 06:49] LABS: Albumin 2.3 g/dL (3.4-5.0); Calcium 9.4 mg/dL (8.5-10.1); Potassium 4.1 mmol/L (3.5-5.1)
[2021-03-17 06:52] LABS: BUN/Creatinine Ratio 5.3; Bilirubin, Total 0.4 mg/dL (0.2-1.0); Total Protein 6.6 g/dL (6.4-8.2)
[2021-03-17 18:58] LABS: INR 1.12 (0.9-1.15); Partial Thromboplastin Time 32.1 sec (23.6-33.0)
[2021-03-17] MEDS ORDERED: HYDROcodone-ACET 5/325MG TAB PO ONE (22:45)
[2021-03-17 23:47] LABS: Potassium 4.4 mmol/L (3.5-5.1)
[2021-03-17 23:53] LABS: Albumin 2.4 g/dL (3.4-5.0); Bilirubin, Total 0.4 mg/dL (0.2-1.0); Calcium 9.2 mg/dL (8.5-10.1); Total Protein 6.4 g/dL (6.4-8.2)
[2021-03-18] MEDS ORDERED: LIDOCAINE 1% (LOCAL ANESTH.) PF 5ml SDV ID ONE (08:45)
[2021-03-18 09:56] VITALS: BP 115/88
[2021-03-18] MEDS ORDERED: SODIUM CHLOR 0.9% PF (SALINE LOCK) 10ML VIAL/SYR IV SCH (10:00)
== END 2021-03-18 10:06 | disposition home or self-care (01) ==
LOC: ER 21:44
DX: I13.2 Hypertensive heart and chronic kidney disease with heart failure and with stage 5 chronic kidney disease, or end stage renal disease (principal); E11.22 Type 2 diabetes mellitus with diabetic chronic kidney disease; N18.6 End stage renal disease; N18.9 Chronic kidney disease, unspecified; I50.89 Other heart failure; Z45.2 Encounter for adjustment and management of vascular access device; Z77.22 Contact with and (suspected) exposure to environmental tobacco smoke (acute) (chronic)
CPT/HCPCS: 36415; 36569; 71045; 80053; 83605; 83880; 85025; 85610; 85730; 99284; C1751; J7050

== ENCOUNTER 2021-04-09 15:12 | Inpatient (IN) | payer MEDICARE, MEDICAID ==
[~2021-04-09] VITALS: Ht 175.3 cm; Wt 74.9 kg
[2021-04-09 21:16] LABS: Basophils # (auto) 0 10 ^3/uL (0-0.2); Basophils % (auto) 0.8 % (0.0-2.0); Eosinophils # (auto) 0.4 10 ^3/uL (0-0.8); Eosinophils % (auto) 6.4 % (0.0-7.0); Hematocrit 24.5 % (41.0-53.0); Hemoglobin 8.4 g/dL (13.5-17.5); Lymphocytes # (auto) 0.7 10 ^3/uL (0.4-5.4); Lymphocytes % (auto) 12.7 % (10.0-50.0); Mean Corpuscular Hgb Conc. 34.3 g/dL (32.0-36.0); Mean Corpuscular Volume 90.3 fL (80.0-100.0); Monocytes # (auto) 0.5 10 ^3/uL (0-1.3); Monocytes % (auto) 8.5 % (0.0-12.0); Neutrophils % (auto) 71.6 % (37.0-80.0); Nucleated Red Blood Cells % 0.1 %; Red Blood Cells 2.71 10^6/uL (4.5-5.90); Red Cell Distribution Width 17.3 % (11.8-14.3); White Blood Cell 5.6 10^3/uL (4.4-10.8)
[2021-04-09 21:29] LABS: Albumin 2.3 g/dL (3.4-5.0); Calcium 8.3 mg/dL (8.5-10.1); Potassium 4.2 mmol/L (3.5-5.1)
[2021-04-09 21:37] LABS: BUN/Creatinine Ratio 5.9; Bilirubin, Total 0.4 mg/dL (0.2-1.0); CRP High Sensitivity 6.02 mg/dL (< 0.3); Total Protein 6.8 g/dL (6.4-8.2)
[2021-04-09] MEDS ORDERED: PROPOFOL 100 ML IV ONE (22:29)
[2021-04-09] MEDS ORDERED: PROPOFOL 10 MG/ML 20 ML IV ONE (22:30)
[2021-04-10] MEDS ORDERED: DEXTROSE (50%) 50ML SYRG IV PRN (04:45)
[2021-04-10] MEDS ORDERED: ACETAMINOPHEN 325 MG TAB PO PRN (04:45)
[2021-04-10] MEDS ORDERED: SODIUM CHLORIDE 0.9% 1,000 ML IV SCH (04:45)
[2021-04-10] MEDS ORDERED: ONDANSETRON HCL 4 MG/2 ML VIAL IV PRN (04:45)
[2021-04-10] MEDS ORDERED: MORPHINE SULFATE 4 MG/ML SYR/VIAL IV PRN (04:45)
[2021-04-10] MEDS ORDERED: MORPHINE SULFATE INJECTION 2 MG/ML SYRG IV PRN (05:30)
[2021-04-10] MEDS ORDERED: NITROGLYCERIN 0.4 MG SL TAB SL PRN (05:30)
[2021-04-10 08:06] LABS: Basophils # (auto) 0.1 10 ^3/uL (0-0.2); Basophils % (auto) 0.9 % (0.0-2.0); Eosinophils # (auto) 0.4 10 ^3/uL (0-0.8); Eosinophils % (auto) 6.8 % (0.0-7.0); Hematocrit 27.8 % (41.0-53.0); Hemoglobin 9.3 g/dL (13.5-17.5); Lymphocytes # (auto) 0.6 10 ^3/uL (0.4-5.4); Lymphocytes % (auto) 8.9 % (10.0-50.0); Mean Corpuscular Hemoglobin 30.2 pg (28.0-32.0); Mean Corpuscular Hgb Conc. 33.3 g/dL (32.0-36.0); Mean Corpuscular Volume 90.9 fL (80.0-100.0); Monocytes # (auto) 0.5 10 ^3/uL (0-1.3); Monocytes % (auto) 8.1 % (0.0-12.0); Neutrophils # (auto) 4.7 10 ^3/uL (1.6-8.6); Neutrophils % (auto) 75.3 % (37.0-80.0); Red Blood Cells 3.06 10^6/uL (4.5-5.90); Red Cell Distribution Width 17.1 % (11.8-14.3); White Blood Cell 6.3 10^3/uL (4.4-10.8)
[2021-04-10] MEDS: ACCU-CHEK COMFORT CURVE STRIP VI SCH ×4 (08:10→22:00)
[2021-04-10] MEDS: InsuLIN REG 1unit/0.01ml Soln (100units/ml) SC SCH ×4 (08:12→22:00)
[2021-04-10 08:24] LABS: Albumin 2.4 g/dL (3.4-5.0); Calcium 8.6 mg/dL (8.5-10.1); Potassium 4.1 mmol/L (3.5-5.1)
[2021-04-10 08:29] LABS: BUN/Creatinine Ratio 6.1; Bilirubin, Total 0.4 mg/dL (0.2-1.0); Total Protein 6.8 g/dL (6.4-8.2)
[2021-04-10] MEDS: FAMOTIDINE (10MG/ML) 2ML VL IV SCH (09:48)
[2021-04-10] MEDS: MULTIPLE VITAMIN TAB PO SCH (09:48)
[2021-04-10] MEDS ORDERED: HEPARIN SODIUM (PORCINE) 5000 UNITS/ML 1ML VIAL SC SCH (10:00)
[2021-04-10] MEDS ORDERED: ASCORBIC ACID 500 MG TAB PO SCH (10:00)
[2021-04-10] MEDS ORDERED: ZINC SULFATE 220mg CAP or TAB PO SCH (10:00)
[2021-04-10] MEDS ORDERED: VANCOMYCIN PER PHARMACY 0 MG IV SCH (12:45)
[2021-04-10] MEDS ORDERED: VANCOMYCIN 1GM/250ML 250 ML IV ONE (13:00)
[2021-04-10] MEDS: ERGOCALCIFEROL 50,000 UNIT(1.25MG) CAP PO SCH (14:01)
[2021-04-10 15:00] VITALS: BP 111/45
[2021-04-10] MEDS ORDERED: LACTCAP3 PO (16:49)
[2021-04-10 17:00] VITALS: BP 111/45
[2021-04-11] MEDS: ACCU-CHEK COMFORT CURVE STRIP VI SCH ×4 (07:00→21:26)
[2021-04-11] MEDS: InsuLIN REG 1unit/0.01ml Soln (100units/ml) SC SCH ×4 (07:00→21:28)
[2021-04-11 07:36] LABS: Basophils # (auto) 0 10 ^3/uL (0-0.2); Basophils % (auto) 0.7 % (0.0-2.0); Eosinophils # (auto) 0.5 10 ^3/uL (0-0.8); Eosinophils % (auto) 9.3 % (0.0-7.0); Hemoglobin 8.1 g/dL (13.5-17.5); Lymphocytes # (auto) 0.6 10 ^3/uL (0.4-5.4); Lymphocytes % (auto) 10.6 % (10.0-50.0); Mean Corpuscular Hgb Conc. 35.1 g/dL (32.0-36.0); Mean Corpuscular Volume 91.2 fL (80.0-100.0); Monocytes # (auto) 0.6 10 ^3/uL (0-1.3); Monocytes % (auto) 11.3 % (0.0-12.0); Neutrophils # (auto) 3.9 10 ^3/uL (1.6-8.6); Neutrophils % (auto) 68.1 % (37.0-80.0); Red Blood Cells 2.52 10^6/uL (4.5-5.90); Red Cell Distribution Width 17.7 % (11.8-14.3); White Blood Cell 5.7 10^3/uL (4.4-10.8)
[2021-04-11] MEDS: ENOXAPARIN SOD 30 MG/0.3 ML SYRINGE SC SCH (07:54)
[2021-04-11] MEDS: MULTIPLE VITAMIN TAB PO SCH (07:55)
[2021-04-11 07:59] LABS: Potassium 4.7 mmol/L (3.5-5.1)
[2021-04-11 08:00] VITALS: BP 165/70
[2021-04-11 08:19] LABS: Albumin 2.3 g/dL (3.4-5.0); BUN/Creatinine Ratio 6.5; Bilirubin, Total 0.4 mg/dL (0.2-1.0); CRP High Sensitivity 11.2 mg/dL (< 0.3); Calcium 8.2 mg/dL (8.5-10.1)
[2021-04-11 09:36] LABS: INR 1.14 (0.9-1.15); Partial Thromboplastin Time 34.3 sec (23.6-33.0)
[2021-04-11] MEDS: FAMOTIDINE (10MG/ML) 2ML VL IV SCH (10:16)
[2021-04-11] MEDS: HYDROcodone-ACET 5/325MG TAB PO PRN (10:16)
[2021-04-11] MEDS ORDERED: BUPIVACAINE W/ EPINEPH 0.25% INJ 50ML MDV ONE (10:24)
[2021-04-11] MEDS ORDERED: TRANEXAMIC ACID 20 ML ONE (10:24)
[2021-04-11] MEDS ORDERED: ceFAZolin 1GM VL ONE (10:25)
[2021-04-11] MEDS ORDERED: KETOROLAC TROMETH 30 MG/ML 1ML VIAL ONE (10:26)
[2021-04-11] MEDS ORDERED: fentaNYL CITRATE 100 MCG/2 ML VL ONE ×2 (12:42→14:27)
[2021-04-11] MEDS ORDERED: MEPERIDINE HCL (25 MG/ML) 1ML VIAL ONE (12:43)
[2021-04-11] MEDS ORDERED: MIDAZOLAM HCL 2MG/2ML 2ml VIAL (1mg/ml) ONE (12:43)
[2021-04-11] MEDS ORDERED: DexAMETHasone SOD PHOS 10MG/1ML VIAL INJ ONE (13:15)
[2021-04-11] MEDS ORDERED: PROPOFOL 10 MG/ML 20 ML IV ONE (13:15)
[2021-04-11] MEDS ORDERED: GIVE UN DILUTED XX ONE (14:00)
[2021-04-11] MEDS ORDERED: TOBRAMYCIN XX ONE (14:00)
[2021-04-11] MEDS ORDERED: VANCOMYCIN HCL 1000 MG VL ONE ×2 (14:02→15:06)
[2021-04-11] MEDS ORDERED: ePHEDrine SULFATE 50 MG/ML AMP ONE (14:53)
[2021-04-11] MEDS ORDERED: GENTAMICIN SULF 80 MG/2 ML VIAL ONE (15:06)
[2021-04-11] MEDS ORDERED: fentaNYL CITRATE 100 MCG/2 ML VL IV PRN (16:00)
[2021-04-11] MEDS ORDERED: HYDROmorphone HCL 2 MG/ML VL IV PRN ×2 (16:00)
[2021-04-11] MEDS ORDERED: ePHEDrine SULFATE 50 MG/ML AMP IV PRN (16:00)
[2021-04-11] MEDS ORDERED: ONDANSETRON HCL 4 MG/2 ML VIAL IV PRN (16:00)
[2021-04-11] MEDS: LACTATED RINGER'S 1,000 ML IV SCH (16:15)
[2021-04-11 17:50] VITALS: BP 110/88
[2021-04-11 22:00] VITALS: BP 116/84
[2021-04-12] MEDS: LACTATED RINGER'S 1,000 ML IV SCH ×3 (02:15→22:15)
[2021-04-12 05:00] VITALS: BP 134/65
[2021-04-12 05:42] LABS: Basophils # (auto) 0 10 ^3/uL (0-0.2); Basophils % (auto) 0.2 % (0.0-2.0); Eosinophils # (auto) 0 10 ^3/uL (0-0.8); Lymphocytes # (auto) 0.2 10 ^3/uL (0.4-5.4); Monocytes # (auto) 0.1 10 ^3/uL (0-1.3); Neutrophils # (auto) 5.8 10 ^3/uL (1.6-8.6); White Blood Cell 6.1 10^3/uL (4.4-10.8)
[2021-04-12 05:44] LABS: Hematocrit 22.2 % (41.0-53.0); Hemoglobin 7.7 g/dL (13.5-17.5); Lymphocytes % (auto) 3.4 % (10.0-50.0); Mean Corpuscular Hemoglobin 31.6 pg (28.0-32.0); Mean Corpuscular Hgb Conc. 34.9 g/dL (32.0-36.0); Mean Corpuscular Volume 90.8 fL (80.0-100.0); Monocytes % (auto) 2.1 % (0.0-12.0); Neutrophils % (auto) 94.3 % (37.0-80.0); Nucleated Red Blood Cells % 0.1 %; Red Blood Cells 2.45 10^6/uL (4.5-5.90); Red Cell Distribution Width 17.9 % (11.8-14.3)
[2021-04-12 06:04] LABS: BUN/Creatinine Ratio 6.6; Calcium 8.3 mg/dL (8.5-10.1)
[2021-04-12] MEDS: ACCU-CHEK COMFORT CURVE STRIP VI SCH ×4 (06:32→22:00)
[2021-04-12 06:33] LABS: Potassium 5.6 mmol/L (3.5-5.1)
[2021-04-12] MEDS: InsuLIN REG 1unit/0.01ml Soln (100units/ml) SC SCH ×3 (06:36→21:52)
[2021-04-12] MEDS ORDERED: SODIUM ZIRCONIUM CYCL 10 GM PAK PO ONE ×2 (07:00→14:45)
[2021-04-12 09:00] VITALS: BP 120/66
[2021-04-12] MEDS: ENOXAPARIN SOD 30 MG/0.3 ML SYRINGE SC SCH (10:15)
[2021-04-12] MEDS: MULTIPLE VITAMIN TAB PO SCH (10:15)
[2021-04-12] MEDS: FAMOTIDINE (10MG/ML) 2ML VL IV SCH (10:15)
[2021-04-12] MEDS: HYDROcodone-ACET 5/325MG TAB PO PRN (10:16)
[2021-04-12 13:00] VITALS: BP 158/54
[2021-04-12 17:00] VITALS: BP 124/66
[2021-04-12] MEDS ORDERED: IOHEXOL 350 MG/ML 100ML IJ ONE (18:09)
[2021-04-12 22:26] VITALS: BP 128/56
[2021-04-13] VITALS (9 sets, daily range): BP systolic 130–148; BP diastolic 56–111
[2021-04-13] MEDS: LORazepam 2MG/ML-1ML VIAL IV PRN (02:54)
[2021-04-13 06:08] LABS: Basophils # (auto) 0 10 ^3/uL (0-0.2); Eosinophils # (auto) 0 10 ^3/uL (0-0.8); Lymphocytes # (auto) 0.3 10 ^3/uL (0.4-5.4); Mean Corpuscular Volume 90.1 fL (80.0-100.0); Red Cell Distribution Width 17.9 % (11.8-14.3)
[2021-04-13 06:27] LABS: Basophils % (auto) 0.3 % (0.0-2.0); Lymphocytes % (auto) 5.5 % (10.0-50.0); Mean Corpuscular Hemoglobin 31.4 pg (28.0-32.0); Mean Corpuscular Hgb Conc. 34.9 g/dL (32.0-36.0); Monocytes # (auto) 0.5 10 ^3/uL (0-1.3); Monocytes % (auto) 10.1 % (0.0-12.0); Neutrophils # (auto) 4.6 10 ^3/uL (1.6-8.6); Neutrophils % (auto) 84.1 % (37.0-80.0); White Blood Cell 5.4 10^3/uL (4.4-10.8)
[2021-04-13 06:29] LABS: Hemoglobin 6.6 g/dL (13.5-17.5)
[2021-04-13] MEDS: InsuLIN REG 1unit/0.01ml Soln (100units/ml) SC SCH ×4 (06:31→21:58)
[2021-04-13 06:38] LABS: BUN/Creatinine Ratio 6.2; Calcium 8.2 mg/dL (8.5-10.1)
[2021-04-13] MEDS: LACTATED RINGER'S 1,000 ML IV SCH ×2 (09:27→18:36)
[2021-04-13] MEDS: MULTIPLE VITAMIN TAB PO SCH (09:27)
[2021-04-13] MEDS: HYDROcodone-ACET 10/325MG TAB PO PRN (14:31)
[2021-04-13] MEDS: cefTRIAXone 1GM/50ML D5W 50 ML IV SCH (18:37)
[2021-04-14] MEDS: LACTATED RINGER'S 1,000 ML IV SCH (04:15)
[2021-04-14 04:48] VITALS: BP 158/58
[2021-04-14] MEDS: InsuLIN REG 1unit/0.01ml Soln (100units/ml) SC SCH ×4 (06:44→21:54)
[2021-04-14 08:35] LABS: Basophils # (auto) 0 10 ^3/uL (0-0.2); Basophils % (auto) 0.3 % (0.0-2.0); Eosinophils # (auto) 0 10 ^3/uL (0-0.8); Eosinophils % (auto) 0.1 % (0.0-7.0); Hematocrit 22.7 % (41.0-53.0); Hemoglobin 7.8 g/dL (13.5-17.5); Lymphocytes # (auto) 0.6 10 ^3/uL (0.4-5.4); Lymphocytes % (auto) 8.2 % (10.0-50.0); Mean Corpuscular Hemoglobin 30.9 pg (28.0-32.0); Mean Corpuscular Hgb Conc. 34.5 g/dL (32.0-36.0); Mean Corpuscular Volume 89.5 fL (80.0-100.0); Monocytes # (auto) 0.9 10 ^3/uL (0-1.3); Monocytes % (auto) 12.5 % (0.0-12.0); Neutrophils # (auto) 5.6 10 ^3/uL (1.6-8.6); Neutrophils % (auto) 78.9 % (37.0-80.0); Red Blood Cells 2.54 10^6/uL (4.5-5.90); Red Cell Distribution Width 17.1 % (11.8-14.3); White Blood Cell 7.1 10^3/uL (4.4-10.8)
[2021-04-14 08:54] VITALS: BP 167/69
[2021-04-14] MEDS: cefTRIAXone 1GM/50ML D5W 50 ML IV SCH (09:21)
[2021-04-14] MEDS: MULTIPLE VITAMIN TAB PO SCH (09:22)
[2021-04-14] MEDS ORDERED: SODIUM CHL 0.9% 1000 ML BAG XX ONE (10:30)
[2021-04-14 13:00] VITALS: BP 167/95
[2021-04-14] MEDS: DOCUSATE SOD 100 MG CAP PO PRN (16:38)
[2021-04-14] MEDS: HYDROcodone-ACET 5/325MG TAB PO PRN (16:38)
[2021-04-14] MEDS: ACCU-CHEK COMFORT CURVE STRIP VI SCH ×2 (16:46→21:54)
[2021-04-14 17:02] VITALS: BP 182/64
[2021-04-14] MEDS: LORazepam 2MG/ML-1ML VIAL IV PRN (17:42)
[2021-04-14] MEDS ORDERED: hydrALAZINE HCL 20 MG/ML VL IV ONE (19:15)
[2021-04-14 21:47] VITALS: BP 127/46
[2021-04-15] MEDS ORDERED: hydrALAZINE HCL 20 MG/ML VL IV PRN
[2021-04-15 04:36] VITALS: BP 117/50
[2021-04-15] MEDS: InsuLIN REG 1unit/0.01ml Soln (100units/ml) SC SCH ×4 (06:11→22:00)
[2021-04-15] MEDS: ACCU-CHEK COMFORT CURVE STRIP VI SCH ×4 (06:12→22:00)
[2021-04-15] MEDS: HYDROcodone-ACET 10/325MG TAB PO PRN ×4 (06:16→23:49)
[2021-04-15 09:30] VITALS: BP 139/112
[2021-04-15 10:31] LABS: Basophils # (auto) 0 10 ^3/uL (0-0.2); Basophils % (auto) 0.4 % (0.0-2.0); Eosinophils # (auto) 0.1 10 ^3/uL (0-0.8); Hemoglobin 7.5 g/dL (13.5-17.5); Monocytes # (auto) 0.7 10 ^3/uL (0-1.3); Neutrophils # (auto) 4.4 10 ^3/uL (1.6-8.6); White Blood Cell 5.9 10^3/uL (4.4-10.8)
[2021-04-15 10:35] LABS: Eosinophils % (auto) 1.5 % (0.0-7.0); Hematocrit 21.7 % (41.0-53.0); Lymphocytes # (auto) 0.7 10 ^3/uL (0.4-5.4); Lymphocytes % (auto) 11.1 % (10.0-50.0); Mean Corpuscular Hemoglobin 30.9 pg (28.0-32.0); Mean Corpuscular Hgb Conc. 34.5 g/dL (32.0-36.0); Mean Corpuscular Volume 89.4 fL (80.0-100.0); Monocytes % (auto) 12.5 % (0.0-12.0); Neutrophils % (auto) 74.5 % (37.0-80.0); Nucleated Red Blood Cells % 0.1 %; Red Blood Cells 2.43 10^6/uL (4.5-5.90); Red Cell Distribution Width 17.1 % (11.8-14.3)
[2021-04-15 10:36] LABS: Potassium 3.5 mmol/L (3.5-5.1)
[2021-04-15 10:48] LABS: Albumin 2.4 g/dL (3.4-5.0); BUN/Creatinine Ratio 7.2; Bilirubin, Total 0.4 mg/dL (0.2-1.0); Calcium 8.2 mg/dL (8.5-10.1); Total Protein 6.6 g/dL (6.4-8.2)
[2021-04-15] MEDS: cefTRIAXone 1GM/50ML D5W 50 ML IV SCH (11:18)
[2021-04-15] MEDS: MULTIPLE VITAMIN TAB PO SCH (11:18)
[2021-04-15] MEDS: DOCUSATE SOD 100 MG CAP PO PRN (11:40)
[2021-04-15 12:49] VITALS: BP 144/50
[2021-04-15] MEDS: VANCOMYCIN 1GM/250ML 250 ML IV ONE ×2 (15:30→18:15)
[2021-04-15 16:31] VITALS: BP 96/63
[2021-04-15] MEDS ORDERED: MORPHINE SULFATE INJECTION 2 MG/ML SYRG IV PRN (18:15)
[2021-04-15 21:03] VITALS: BP 108/75
[2021-04-16 05:09] VITALS: BP 128/62
[2021-04-16 05:49] LABS: Hemoglobin 7.4 g/dL (13.5-17.5)
[2021-04-16 05:52] LABS: Hematocrit 21.8 % (41.0-53.0)
[2021-04-16] MEDS: ACCU-CHEK COMFORT CURVE STRIP VI SCH ×4 (06:13→21:53)
[2021-04-16] MEDS: InsuLIN REG 1unit/0.01ml Soln (100units/ml) SC SCH ×4 (06:13→22:33)
[2021-04-16 09:00] VITALS: BP 122/63
[2021-04-16] MEDS: cefTRIAXone 1GM/50ML D5W 50 ML IV SCH (10:30)
[2021-04-16] MEDS: HYDROcodone-ACET 10/325MG TAB PO PRN (10:30)
[2021-04-16] MEDS: MULTIPLE VITAMIN TAB PO SCH (10:30)
[2021-04-16] MEDS: DOCUSATE SOD 100 MG CAP PO PRN (10:30)
[2021-04-16] MEDS ORDERED: MAGNESIUM CITRATE SOLUTION 300 ML BTL PO ONE (12:45)
[2021-04-16 13:00] VITALS: BP 131/67
[2021-04-16 17:00] VITALS: BP 126/54
[2021-04-16 21:01] VITALS: BP 122/71
[2021-04-16] MEDS: HYDROcodone-ACET 5/325MG TAB PO PRN (21:52)
[2021-04-17] MEDS: LORazepam 2MG/ML-1ML VIAL IV PRN (00:22)
[2021-04-17 05:31] VITALS: BP 152/70
[2021-04-17] MEDS: InsuLIN REG 1unit/0.01ml Soln (100units/ml) SC SCH ×4 (07:00→21:17)
[2021-04-17] MEDS: ACCU-CHEK COMFORT CURVE STRIP VI SCH ×4 (07:02→21:17)
[2021-04-17] MEDS: HYDROcodone-ACET 10/325MG TAB PO PRN (07:13)
[2021-04-17 08:01] LABS: Basophils # (auto) 0 10 ^3/uL (0-0.2); Eosinophils # (auto) 0.4 10 ^3/uL (0-0.8); Eosinophils % (auto) 7.2 % (0.0-7.0); Hemoglobin 7.6 g/dL (13.5-17.5); Monocytes # (auto) 0.7 10 ^3/uL (0-1.3); Neutrophils # (auto) 3.4 10 ^3/uL (1.6-8.6); Nucleated Red Blood Cells % 0.1 %; White Blood Cell 5.3 10^3/uL (4.4-10.8)
[2021-04-17 08:04] LABS: Calcium 8.6 mg/dL (8.5-10.1); Magnesium 2.6 mg/dL (1.6-2.6)
[2021-04-17 08:08] LABS: Basophils % (auto) 0.6 % (0.0-2.0); Lymphocytes # (auto) 0.7 10 ^3/uL (0.4-5.4); Mean Corpuscular Hemoglobin 31.1 pg (28.0-32.0); Mean Corpuscular Hgb Conc. 34.4 g/dL (32.0-36.0); Mean Corpuscular Volume 90.4 fL (80.0-100.0); Monocytes % (auto) 13.4 % (0.0-12.0); Neutrophils % (auto) 64.8 % (37.0-80.0); Red Blood Cells 2.43 10^6/uL (4.5-5.90); Red Cell Distribution Width 17.3 % (11.8-14.3)
[2021-04-17 08:09] LABS: BUN/Creatinine Ratio 7.6
[2021-04-17 09:42] VITALS: BP 133/52
[2021-04-17] MEDS: cefTRIAXone 1GM/50ML D5W 50 ML IV SCH (10:14)
[2021-04-17] MEDS: MULTIPLE VITAMIN TAB PO SCH (10:14)
[2021-04-17 12:25] VITALS: BP 127/104
[2021-04-17] MEDS: ERGOCALCIFEROL 50,000 UNIT(1.25MG) CAP PO SCH (12:45)
[2021-04-17 16:29] VITALS: BP 142/71
[2021-04-17 22:00] VITALS: BP 145/35
[2021-04-18 05:00] VITALS: BP 126/81
[2021-04-18] MEDS: InsuLIN REG 1unit/0.01ml Soln (100units/ml) SC SCH ×4 (06:39→22:00)
[2021-04-18] MEDS: ACCU-CHEK COMFORT CURVE STRIP VI SCH ×4 (06:39→23:12)
[2021-04-18 08:23] VITALS: BP 132/110
[2021-04-18] MEDS: cefTRIAXone 1GM/50ML D5W 50 ML IV SCH (09:04)
[2021-04-18] MEDS: MULTIPLE VITAMIN TAB PO SCH (09:04)
[2021-04-18 12:58] VITALS: BP 154/85
[2021-04-18] MEDS ORDERED: SODIUM CHL 0.9% 1000 ML BAG XX ONE (13:30)
[2021-04-18 16:33] VITALS: BP 192/35
[2021-04-18 18:49] VITALS: BP 143/87
[2021-04-18] MEDS: HYDROcodone-ACET 5/325MG TAB PO PRN (19:17)
[2021-04-18] MEDS ORDERED: EPOETIN ALFA-EPBX 4,000 UNIT/ML VIAL SC ONE (21:00)
== END 2021-04-19 03:45 | DRG 309 ==
LOC: EDBD 15:12 → ER 15:12 → OVERFLOW 04-10 05:21 → TELE-WESTW 04-10 14:58 → WEST WING 04-12 02:35
PROVIDERS: ADMIT Nurse Practitioner Family; ATTEND Internal Medicine
PROC: 0SH908Z Insertion of Spacer into Right Hip Joint, Open Approach (ICD-10-PCS; 2021-04-11)
PROC: 0SP90JZ Removal of Synthetic Substitute from Right Hip Joint, Open Approach (ICD-10-PCS; 2021-04-11)
PROC: 30233N1 Transfusion of Nonautologous Red Blood Cells into Peripheral Vein, Percutaneous Approach (ICD-10-PCS; principal; 2021-04-11 13:20)
DX: T84.51XA Infection and inflammatory reaction due to internal right hip prosthesis, initial encounter (principal); J96.20 Acute and chronic respiratory failure, unspecified whether with hypoxia or hypercapnia; I13.2 Hypertensive heart and chronic kidney disease with heart failure and with stage 5 chronic kidney disease, or end stage renal disease; E44.0 Moderate protein-calorie malnutrition; D63.1 Anemia in chronic kidney disease; N18.6 End stage renal disease; T84.020A Dislocation of internal right hip prosthesis, initial encounter; D64.9 Anemia, unspecified; E11.22 Type 2 diabetes mellitus with diabetic chronic kidney disease; Z66 Do not resuscitate; E55.9 Vitamin D deficiency, unspecified; Z20.822 Contact with and (suspected) exposure to COVID-19; Z96.649 Presence of unspecified artificial hip joint; M10.9 Gout, unspecified; M70.40 Prepatellar bursitis, unspecified knee; F17.200 Nicotine dependence, unspecified, uncomplicated; I50.9 Heart failure, unspecified; J44.9 Chronic obstructive pulmonary disease, unspecified; M19.90 Unspecified osteoarthritis, unspecified site; Y79.2 Prosthetic and other implants, materials and accessory orthopedic devices associated with adverse incidents; M89.8X9 Other specified disorders of bone, unspecified site; Z80.0 Family history of malignant neoplasm of digestive organs; Z80.42 Family history of malignant neoplasm of prostate; Z80.1 Family history of malignant neoplasm of trachea, bronchus and lung; Z80.7 Family history of other malignant neoplasms of lymphoid, hematopoietic and related tissues; Z99.2 Dependence on renal dialysis; Y92.89 Other specified places as the place of occurrence of the external cause
CPT/HCPCS: 27265; 36415; 70450; 71045; 71275; 73501; 73502; 73562; 80048; 80053; 80202; 82962; 83036; 83735; 84100; 85014; 85018; 85025; 85379; 85610; 85652; 85730; 86141; 86850; 86900; 86901; 86920; 87040; 87070; 87075; 87081; 87205; 87426; 89051; 90935; 93005; 93970; 96365; 96372; 96375; 97110; 97116; 97163; 97530; 99152; A4565; G0378; J0690; J0696; J1100; J1815; J1885; J2250; J2704; J3490

== ENCOUNTER 2021-04-24 07:29 | Emergency (ER) | payer MEDICARE, MEDICAID ==
[~2021-04-24] VITALS: Ht 165.1 cm; Wt 81.6 kg
[~2021-04-24 07:29] MED LIST changes: -CHOL20007 PO; +LACTCAP3 PO
[2021-04-24 11:10] LABS: Eosinophils # (auto) 0.5 10 ^3/uL (0-0.8); Lymphocytes # (auto) 1.1 10 ^3/uL (0.4-5.4); White Blood Cell 11.2 10^3/uL (4.4-10.8)
[2021-04-24 11:14] LABS: Basophils # (auto) 0.1 10 ^3/uL (0-0.2); Basophils % (auto) 0.5 % (0.0-2.0); Eosinophils % (auto) 4.1 % (0.0-7.0); Hematocrit 20.5 % (41.0-53.0); Lymphocytes % (auto) 9.6 % (10.0-50.0); Mean Corpuscular Hemoglobin 31.1 pg (28.0-32.0); Mean Corpuscular Hgb Conc. 33.7 g/dL (32.0-36.0); Mean Corpuscular Volume 92.5 fL (80.0-100.0); Monocytes % (auto) 8.6 % (0.0-12.0); Neutrophils # (auto) 8.7 10 ^3/uL (1.6-8.6); Neutrophils % (auto) 77.2 % (37.0-80.0); Red Blood Cells 2.21 10^6/uL (4.5-5.90); Red Cell Distribution Width 18.4 % (11.8-14.3)
[2021-04-24 11:22] LABS: Hemoglobin 6.9 g/dL (13.5-17.5)
[2021-04-24 11:43] LABS: Potassium 4.1 mmol/L (3.5-5.1)
[2021-04-24 11:53] LABS: Albumin 2.7 g/dL (3.4-5.0); BUN/Creatinine Ratio 6.1; Bilirubin, Total 0.6 mg/dL (0.2-1.0); Calcium 8.7 mg/dL (8.5-10.1); Total Protein 6.9 g/dL (6.4-8.2)
[2021-04-25 07:58] VITALS: BP 192/73
[2021-04-25 08:15] VITALS: BP 188/83
[2021-04-25 08:45] VITALS: BP 183/78
[2021-04-25 10:30] VITALS: BP 188/80
[2021-04-25 11:44] LABS: Eosinophils # (auto) 0.4 10 ^3/uL (0-0.8); Red Blood Cells 2.18 10^6/uL (4.5-5.90)
[2021-04-25 11:46] LABS: Basophils # (auto) 0 10 ^3/uL (0-0.2); Basophils % (auto) 0.4 % (0.0-2.0); Eosinophils % (auto) 3.8 % (0.0-7.0); Hematocrit 20.4 % (41.0-53.0); Lymphocytes # (auto) 1.2 10 ^3/uL (0.4-5.4); Lymphocytes % (auto) 10.8 % (10.0-50.0); Mean Corpuscular Hemoglobin 31.4 pg (28.0-32.0); Mean Corpuscular Hgb Conc. 33.6 g/dL (32.0-36.0); Mean Corpuscular Volume 93.3 fL (80.0-100.0); Monocytes # (auto) 0.8 10 ^3/uL (0-1.3); Monocytes % (auto) 7.6 % (0.0-12.0); Neutrophils # (auto) 8.4 10 ^3/uL (1.6-8.6); Neutrophils % (auto) 77.4 % (37.0-80.0); Red Cell Distribution Width 18.8 % (11.8-14.3); White Blood Cell 10.9 10^3/uL (4.4-10.8)
[2021-04-25 11:53] LABS: Hemoglobin 6.9 g/dL (13.5-17.5)
[2021-04-25 13:31] LABS: Basophils # (auto) 0.1 10 ^3/uL (0-0.2); Basophils % (auto) 0.6 % (0.0-2.0); Eosinophils # (auto) 0.3 10 ^3/uL (0-0.8); Eosinophils % (auto) 2.5 % (0.0-7.0); Hemoglobin 7.8 g/dL (13.5-17.5); Lymphocytes # (auto) 1.2 10 ^3/uL (0.4-5.4); Lymphocytes % (auto) 10.5 % (10.0-50.0); Mean Corpuscular Hemoglobin 31.1 pg (28.0-32.0); Mean Corpuscular Hgb Conc. 33.8 g/dL (32.0-36.0); Mean Corpuscular Volume 91.8 fL (80.0-100.0); Monocytes # (auto) 0.9 10 ^3/uL (0-1.3); Monocytes % (auto) 7.4 % (0.0-12.0); Neutrophils # (auto) 9.2 10 ^3/uL (1.6-8.6); Red Blood Cells 2.51 10^6/uL (4.5-5.90); Red Cell Distribution Width 17.5 % (11.8-14.3); White Blood Cell 11.7 10^3/uL (4.4-10.8)
[2021-04-25 16:32] VITALS: BP 178/72
== END 2021-04-25 16:41 | disposition home or self-care (01) ==
LOC: EDBD 07:29 → ER 07:29
DX: D64.9 Anemia, unspecified (principal); I13.0 Hypertensive heart and chronic kidney disease with heart failure and stage 1 through stage 4 chronic kidney disease, or unspecified chronic kidney disease; E11.22 Type 2 diabetes mellitus with diabetic chronic kidney disease; N18.9 Chronic kidney disease, unspecified; I50.9 Heart failure, unspecified; J44.9 Chronic obstructive pulmonary disease, unspecified; Z88.0 Allergy status to penicillin; Z90.89 Acquired absence of other organs; Z20.822 Contact with and (suspected) exposure to COVID-19
CPT/HCPCS: 36415; 36430; 71045; 80053; 84484; 85025; 86850; 86900; 86901; 86920; 87426; 93005; 99291; P9016

== ENCOUNTER 2021-04-26 02:02 | Inpatient (IN) | payer MEDICARE, MEDICAID ==
[~2021-04-26] VITALS: Ht 172.7 cm; Wt 70.7 kg
[2021-04-26 09:31] LABS: Basophils # (auto) 0.1 10 ^3/uL (0-0.2); Basophils % (auto) 0.6 % (0.0-2.0); Eosinophils # (auto) 0.3 10 ^3/uL (0-0.8); Eosinophils % (auto) 3.7 % (0.0-7.0); Hematocrit 21.5 % (41.0-53.0); Hemoglobin 7.3 g/dL (13.5-17.5); Lymphocytes % (auto) 10.9 % (10.0-50.0); Mean Corpuscular Hemoglobin 31.3 pg (28.0-32.0); Mean Corpuscular Hgb Conc. 33.8 g/dL (32.0-36.0); Mean Corpuscular Volume 92.4 fL (80.0-100.0); Monocytes # (auto) 0.8 10 ^3/uL (0-1.3); Monocytes % (auto) 8.7 % (0.0-12.0); Neutrophils % (auto) 76.1 % (37.0-80.0); Red Blood Cells 2.33 10^6/uL (4.5-5.90); Red Cell Distribution Width 18.2 % (11.8-14.3); White Blood Cell 9.2 10^3/uL (4.4-10.8)
[2021-04-26 09:39] LABS: Albumin 2.4 g/dL (3.4-5.0); Potassium 4.7 mmol/L (3.5-5.1)
[2021-04-26 09:45] LABS: Bilirubin, Total 0.7 mg/dL (0.2-1.0); Total Protein 6.2 g/dL (6.4-8.2)
[2021-04-26] MEDS ORDERED: NITROGLYCERIN 0.4 MG SL TAB SL PRN ×2 (12:45→15:30)
[2021-04-26] MEDS ORDERED: DESMOPRESSIN INJECTION 20 MCG in SODIUM CHL 0.9% 50 ML IV ONE (12:45)
[2021-04-26] MEDS ORDERED: MORPHINE SULFATE INJECTION 2 MG/ML SYRG IV PRN ×3 (12:45→15:30)
[2021-04-26] MEDS ORDERED: VANCOMYCIN PER PHARMACY 0 MG IV SCH (13:00)
[2021-04-26] MEDS ORDERED: CEFTRIAXONE SODIUM 2 GM in D5W 5% 50 ML IV ONE (13:00)
[2021-04-26] MEDS ORDERED: LABETALOL HCL 5 MG/ML 4ML SYRINGE IV ONE (15:15)
[2021-04-26] MEDS ORDERED: ISOSORBIDE MONONITRATE 20 MG TAB PO ONE (15:15)
[2021-04-26] MEDS ORDERED: BUMETANIDE 2.5mg/10ml (0.25 mg/ml) INJ IV ONE (15:15)
[2021-04-26] MEDS ORDERED: hydrALAZINE HCL 25 MG TAB PO ONE (15:15)
[2021-04-26] MEDS ORDERED: CARISOPRODOL 350 MG TAB PO PRN (15:30)
[2021-04-26] MEDS ORDERED: ONDANSETRON HCL 4 MG/2 ML VIAL IV PRN (15:30)
[2021-04-26] MEDS ORDERED: D5W/SOD CHL 0.45% 1,000 ML IV SCH (15:30)
[2021-04-26] MEDS ORDERED: DOCUSATE SOD 100 MG CAP PO PRN (15:30)
[2021-04-26] MEDS ORDERED: LORazepam 0.5 MG TAB PO PRN (15:30)
[2021-04-26] MEDS ORDERED: ALUM & MAG HYDROX-SIMETH LIQ(MAALOX) 30 ML PO PRN (15:30)
[2021-04-26] MEDS ORDERED: HYDROcodone-ACET 5/325MG TAB PO PRN (15:30)
[2021-04-26] MEDS ORDERED: VANCOMYCIN 1GM/250ML 250 ML IV ONE (16:00)
[2021-04-26] MEDS: BUMETANIDE 2.5mg/10ml (0.25 mg/ml) INJ IV SCH (18:34)
[2021-04-26] MEDS: SEVELAMER 800 MG TAB PO SCH (18:34)
[2021-04-26 19:09] VITALS: BP 174/42
[2021-04-26 21:28] VITALS: BP 143/49
[2021-04-26] MEDS: SACUBITRIL VALSARTAN PO SCH (22:00)
[2021-04-26] MEDS ORDERED: SACUBITRIL-VALSARTAN 24mg/26mg TAB PO SCH (22:00)
[2021-04-26] MEDS: ISOSORBIDE MONONITRATE 20 MG TAB PO SCH (22:33)
[2021-04-26] MEDS: hydrALAZINE HCL 25 MG TAB PO SCH (22:36)
[2021-04-26] MEDS: ATORVASTATIN 20 MG TAB PO SCH (22:39)
[2021-04-27] VITALS (9 sets, daily range): BP systolic 137–181; BP diastolic 42–57
[2021-04-27] MEDS: BUMETANIDE 2.5mg/10ml (0.25 mg/ml) INJ IV SCH ×2 (05:45→18:31)
[2021-04-27] MEDS: SEVELAMER 800 MG TAB PO SCH ×3 (07:58→18:32)
[2021-04-27 09:57] LABS: Basophils # (auto) 0.1 10 ^3/uL (0-0.2); Basophils % (auto) 0.9 % (0.0-2.0); Eosinophils # (auto) 0.6 10 ^3/uL (0-0.8); Eosinophils % (auto) 5.6 % (0.0-7.0); Hematocrit 21.1 % (41.0-53.0); Hemoglobin 7.2 g/dL (13.5-17.5); Mean Corpuscular Hemoglobin 31.6 pg (28.0-32.0); Mean Corpuscular Hgb Conc. 34.1 g/dL (32.0-36.0); Mean Corpuscular Volume 92.7 fL (80.0-100.0); Monocytes # (auto) 0.8 10 ^3/uL (0-1.3); Monocytes % (auto) 7.4 % (0.0-12.0); Neutrophils # (auto) 7.8 10 ^3/uL (1.6-8.6); Neutrophils % (auto) 76.1 % (37.0-80.0); Red Blood Cells 2.28 10^6/uL (4.5-5.90); Red Cell Distribution Width 19.5 % (11.8-14.3); White Blood Cell 10.2 10^3/uL (4.4-10.8)
[2021-04-27] MEDS: SACUBITRIL VALSARTAN PO SCH ×2 (10:00→22:00)
[2021-04-27] MEDS ORDERED: CITALOPRAM HYDROBR 20 MG TAB PO SCH (10:00)
[2021-04-27 10:19] LABS: Albumin 2.4 g/dL (3.4-5.0); Calcium 8.6 mg/dL (8.5-10.1); Magnesium 2.5 mg/dL (1.6-2.6); Potassium 5.4 mmol/L (3.5-5.1)
[2021-04-27] MEDS: CEFTRIAXONE SODIUM 2 GM in D5W 5% 50 ML IV SCH (10:25)
[2021-04-27] MEDS: FLORASTOR (S. BOULARDII) 250 MG CAP PO SCH (10:27)
[2021-04-27] MEDS: hydrALAZINE HCL 25 MG TAB PO SCH ×2 (10:27→22:23)
[2021-04-27 10:28] LABS: BUN/Creatinine Ratio 5.7; Bilirubin, Total 0.5 mg/dL (0.2-1.0); Phosphorus 5.7 mg/dL (2.5-4.90); Total Protein 6.6 g/dL (6.4-8.2); Uric Acid 9.3 mg/dL (3.5-7.2)
[2021-04-27] MEDS: ISOSORBIDE MONONITRATE 20 MG TAB PO SCH ×2 (10:28→22:23)
[2021-04-27] MEDS: CALCITRIOL 0.25 MCG CAP PO SCH (10:29)
[2021-04-27] MEDS: ENOXAPARIN SOD 30 MG/0.3 ML SYRINGE SC SCH (10:29)
[2021-04-27 10:32] LABS: INR 1.1 (0.9-1.15); Partial Thromboplastin Time 28.1 sec (23.6-33.0)
[2021-04-27] MEDS: LABETALOL HCL 5 MG/ML 4ML SYRINGE IV PRN ×2 (12:40→17:40)
[2021-04-27] MEDS: ATORVASTATIN 20 MG TAB PO SCH (22:23)
[2021-04-28 04:30] VITALS: BP 180/83
[2021-04-28 05:34] LABS: Eosinophils # (auto) 0.2 10 ^3/uL (0-0.8); Hemoglobin 7.9 g/dL (13.5-17.5)
[2021-04-28 05:38] LABS: Basophils # (auto) 0 10 ^3/uL (0-0.2); Basophils % (auto) 0.5 % (0.0-2.0); Eosinophils % (auto) 2.4 % (0.0-7.0); Hematocrit 23.1 % (41.0-53.0); Lymphocytes % (auto) 10.4 % (10.0-50.0); Mean Corpuscular Hgb Conc. 34.4 g/dL (32.0-36.0); Monocytes # (auto) 0.6 10 ^3/uL (0-1.3); Monocytes % (auto) 6.8 % (0.0-12.0); Neutrophils # (auto) 7.5 10 ^3/uL (1.6-8.6); Neutrophils % (auto) 79.9 % (37.0-80.0); Nucleated Red Blood Cells % 0.1 %; Red Blood Cells 2.57 10^6/uL (4.5-5.90); White Blood Cell 9.4 10^3/uL (4.4-10.8)
[2021-04-28] MEDS: BUMETANIDE 2.5mg/10ml (0.25 mg/ml) INJ IV SCH ×2 (05:48→18:10)
[2021-04-28 05:56] LABS: Calcium 8.8 mg/dL (8.5-10.1); Potassium 5.3 mmol/L (3.5-5.1)
[2021-04-28] MEDS ORDERED: SODIUM CHL 0.9% 1000 ML BAG XX ONE (07:00)
[2021-04-28] MEDS: SEVELAMER 800 MG TAB PO SCH ×3 (08:00→18:00)
[2021-04-28 09:00] VITALS: BP 164/74
[2021-04-28] MEDS: SACUBITRIL VALSARTAN PO SCH ×2 (10:00→22:00)
[2021-04-28] MEDS: CEFTRIAXONE SODIUM 2 GM in D5W 5% 50 ML IV SCH (10:37)
[2021-04-28] MEDS: hydrALAZINE HCL 25 MG TAB PO SCH ×2 (10:38→22:25)
[2021-04-28] MEDS: FLORASTOR (S. BOULARDII) 250 MG CAP PO SCH (10:39)
[2021-04-28] MEDS: ISOSORBIDE MONONITRATE 20 MG TAB PO SCH ×2 (10:40→22:25)
[2021-04-28] MEDS: CALCITRIOL 0.25 MCG CAP PO SCH (10:40)
[2021-04-28] MEDS: ENOXAPARIN SOD 30 MG/0.3 ML SYRINGE SC SCH (10:41)
[2021-04-28 13:00] VITALS: BP 167/60
[2021-04-28] MEDS ORDERED: IOHEXOL 350 MG/ML 100ML IJ ONE (16:26)
[2021-04-28 17:00] VITALS: BP 153/84
[2021-04-28 20:00] VITALS: BP 143/71
[2021-04-28] MEDS ORDERED: EPOETIN ALFA-EPBX 10,000 UNIT/1ML VIAL SC ONE (21:00)
[2021-04-28] MEDS: ATORVASTATIN 20 MG TAB PO SCH (22:26)
[2021-04-29 05:25] LABS: Eosinophils # (auto) 0.2 10 ^3/uL (0-0.8); Hemoglobin 7.3 g/dL (13.5-17.5); Lymphocytes % (auto) 11.7 % (10.0-50.0); Mean Corpuscular Hemoglobin 30.3 pg (28.0-32.0); White Blood Cell 8.4 10^3/uL (4.4-10.8)
[2021-04-29 05:28] LABS: Basophils # (auto) 0.1 10 ^3/uL (0-0.2); Basophils % (auto) 0.7 % (0.0-2.0); Eosinophils % (auto) 2.3 % (0.0-7.0); Hematocrit 21.8 % (41.0-53.0); Mean Corpuscular Hgb Conc. 33.4 g/dL (32.0-36.0); Mean Corpuscular Volume 90.8 fL (80.0-100.0); Monocytes % (auto) 11.5 % (0.0-12.0); Neutrophils # (auto) 6.2 10 ^3/uL (1.6-8.6); Neutrophils % (auto) 73.8 % (37.0-80.0); Red Cell Distribution Width 22.2 % (11.8-14.3)
[2021-04-29 05:41] LABS: Calcium 8.8 mg/dL (8.5-10.1)
[2021-04-29 05:54] LABS: BUN/Creatinine Ratio 5.2
[2021-04-29] MEDS: BUMETANIDE 2.5mg/10ml (0.25 mg/ml) INJ IV SCH ×2 (06:41→18:29)
[2021-04-29] MEDS ORDERED: SODIUM CHL 0.9% 1000 ML BAG XX ONE (07:00)
[2021-04-29] MEDS: SEVELAMER 800 MG TAB PO SCH ×3 (08:22→18:28)
[2021-04-29] MEDS: CALCITRIOL 0.25 MCG CAP PO SCH (09:43)
[2021-04-29] MEDS: FLORASTOR (S. BOULARDII) 250 MG CAP PO SCH (09:43)
[2021-04-29] MEDS: CEFTRIAXONE SODIUM 2 GM in D5W 5% 50 ML IV SCH (09:44)
[2021-04-29] MEDS: ISOSORBIDE MONONITRATE 20 MG TAB PO SCH ×2 (09:44→22:28)
[2021-04-29] MEDS: hydrALAZINE HCL 25 MG TAB PO SCH ×2 (09:52→22:28)
[2021-04-29] MEDS: ENOXAPARIN SOD 30 MG/0.3 ML SYRINGE SC SCH (10:00)
[2021-04-29] MEDS: SACUBITRIL VALSARTAN PO SCH ×2 (10:00→22:00)
[2021-04-29] MEDS: ACETAMINOPHEN 325 MG TAB PO PRN (14:24)
[2021-04-29 16:30] VITALS: BP 132/75
[2021-04-29 20:00] VITALS: BP 156/50
[2021-04-29] MEDS ORDERED: EPOETIN ALFA-EPBX 10,000 UNIT/1ML VIAL SC ONE (21:00)
[2021-04-29 22:00] VITALS: BP 156/62
[2021-04-29] MEDS: HALOPERIDOL LACTATE 5 MG/ML INJ VIAL IM PRN (22:25)
[2021-04-29] MEDS: HEPARIN SODIUM (PORCINE) 5000 UNITS/ML 1ML VIAL SC SCH (22:26)
[2021-04-29] MEDS: ATORVASTATIN 20 MG TAB PO SCH (22:27)
[2021-04-30] VITALS (7 sets, daily range): BP systolic 147–175; BP diastolic 49–93
[2021-04-30] MEDS: ACETAMINOPHEN 325 MG TAB PO PRN (05:43)
[2021-04-30] MEDS: BUMETANIDE 2.5mg/10ml (0.25 mg/ml) INJ IV SCH ×2 (05:44→18:39)
[2021-04-30 08:21] LABS: Albumin 2.3 g/dL (3.4-5.0); Calcium 9.2 mg/dL (8.5-10.1); Potassium 5.1 mmol/L (3.5-5.1)
[2021-04-30 08:24] LABS: Basophils # (auto) 0.1 10 ^3/uL (0-0.2); Monocytes # (auto) 0.9 10 ^3/uL (0-1.3)
[2021-04-30 08:26] LABS: BUN/Creatinine Ratio 5.2; Bilirubin, Total 0.4 mg/dL (0.2-1.0); Total Protein 6.3 g/dL (6.4-8.2)
[2021-04-30 08:29] LABS: Basophils % (auto) 0.9 % (0.0-2.0); Eosinophils # (auto) 0.3 10 ^3/uL (0-0.8); Eosinophils % (auto) 5.2 % (0.0-7.0); Hematocrit 23.4 % (41.0-53.0); Hemoglobin 7.8 g/dL (13.5-17.5); Lymphocytes # (auto) 0.8 10 ^3/uL (0.4-5.4); Lymphocytes % (auto) 12.4 % (10.0-50.0); Mean Corpuscular Hemoglobin 30.5 pg (28.0-32.0); Mean Corpuscular Hgb Conc. 33.4 g/dL (32.0-36.0); Mean Corpuscular Volume 91.5 fL (80.0-100.0); Neutrophils # (auto) 4.2 10 ^3/uL (1.6-8.6); Neutrophils % (auto) 67.5 % (37.0-80.0); Red Blood Cells 2.55 10^6/uL (4.5-5.90); Red Cell Distribution Width 22.1 % (11.8-14.3); White Blood Cell 6.3 10^3/uL (4.4-10.8)
[2021-04-30] MEDS: hydrALAZINE HCL 25 MG TAB PO SCH ×2 (10:00→21:49)
[2021-04-30] MEDS: FLORASTOR (S. BOULARDII) 250 MG CAP PO SCH (10:00)
[2021-04-30] MEDS: SACUBITRIL VALSARTAN PO SCH ×2 (10:00→21:49)
[2021-04-30] MEDS: CALCITRIOL 0.25 MCG CAP PO SCH (10:00)
[2021-04-30] MEDS: CEFTRIAXONE SODIUM 2 GM in D5W 5% 50 ML IV SCH (10:39)
[2021-04-30] MEDS: SEVELAMER 800 MG TAB PO SCH ×3 (10:39→18:00)
[2021-04-30] MEDS: ISOSORBIDE MONONITRATE 20 MG TAB PO SCH ×2 (10:43→21:51)
[2021-04-30] MEDS: HEPARIN SODIUM (PORCINE) 5000 UNITS/ML 1ML VIAL SC SCH ×2 (10:44→22:09)
[2021-04-30] MEDS: ATORVASTATIN 20 MG TAB PO SCH (21:51)
[2021-04-30] MEDS: HALOPERIDOL LACTATE 5 MG/ML INJ VIAL IM PRN (22:08)
[2021-04-30] MEDS: hydrALAZINE HCL 20 MG/ML VL IV PRN (23:14)
[2021-05-01 01:35] VITALS: BP 141/68
[2021-05-01 05:00] VITALS: BP 151/68
[2021-05-01 05:21] LABS: Basophils # (auto) 0 10 ^3/uL (0-0.2); Basophils % (auto) 0.7 % (0.0-2.0); Eosinophils # (auto) 0.3 10 ^3/uL (0-0.8); Eosinophils % (auto) 5.6 % (0.0-7.0); Hematocrit 25.3 % (41.0-53.0); Hemoglobin 8.6 g/dL (13.5-17.5); Lymphocytes # (auto) 0.8 10 ^3/uL (0.4-5.4); Lymphocytes % (auto) 13.4 % (10.0-50.0); Mean Corpuscular Hemoglobin 31.1 pg (28.0-32.0); Mean Corpuscular Hgb Conc. 34.2 g/dL (32.0-36.0); Mean Corpuscular Volume 91.1 fL (80.0-100.0); Monocytes # (auto) 0.7 10 ^3/uL (0-1.3); Neutrophils # (auto) 4.2 10 ^3/uL (1.6-8.6); Neutrophils % (auto) 68.3 % (37.0-80.0); Nucleated Red Blood Cells % 0.1 %; Red Blood Cells 2.78 10^6/uL (4.5-5.90); White Blood Cell 6.1 10^3/uL (4.4-10.8)
[2021-05-01 05:29] LABS: Red Cell Distribution Width 21.8 % (11.8-14.3)
[2021-05-01 05:56] LABS: Albumin 2.2 g/dL (3.4-5.0); BUN/Creatinine Ratio 4.6; Potassium 4.7 mmol/L (3.5-5.1)
[2021-05-01 05:59] LABS: Bilirubin, Total 0.5 mg/dL (0.2-1.0); Total Protein 6.5 g/dL (6.4-8.2)
[2021-05-01] MEDS: BUMETANIDE 2.5mg/10ml (0.25 mg/ml) INJ IV SCH ×2 (06:03→17:46)
[2021-05-01] MEDS: SEVELAMER 800 MG TAB PO SCH ×3 (08:10→17:46)
[2021-05-01 09:00] VITALS: BP 168/65
[2021-05-01] MEDS: hydrALAZINE HCL 25 MG TAB PO SCH ×2 (09:51→22:01)
[2021-05-01] MEDS: SACUBITRIL VALSARTAN PO SCH ×2 (09:51→22:00)
[2021-05-01] MEDS: CEFTRIAXONE SODIUM 2 GM in D5W 5% 50 ML IV SCH (09:51)
[2021-05-01] MEDS: FLORASTOR (S. BOULARDII) 250 MG CAP PO SCH (09:51)
[2021-05-01] MEDS: CALCITRIOL 0.25 MCG CAP PO SCH (09:52)
[2021-05-01] MEDS: ISOSORBIDE MONONITRATE 20 MG TAB PO SCH ×2 (09:52→22:01)
[2021-05-01] MEDS: HEPARIN SODIUM (PORCINE) 5000 UNITS/ML 1ML VIAL SC SCH ×2 (10:08→21:52)
[2021-05-01] MEDS ORDERED: IOHEXOL 350 MG/ML 100ML IJ ONE (11:07)
[2021-05-01 12:32] VITALS: BP 137/77
[2021-05-01 18:00] VITALS: BP 187/89
[2021-05-01] MEDS ORDERED: CHOL1TAB5 PO (19:45)
[2021-05-01] MEDS ORDERED: MULTTAB75 PO (20:07)
[2021-05-01] MEDS ORDERED: ONDA-144 PO (20:07)
[2021-05-01] MEDS ORDERED: DOCU100C10 PO (20:07)
[2021-05-01] MEDS ORDERED: ACET-1156 PO (20:07)
[2021-05-01] MEDS ORDERED: HYDR10TA26 PO (20:07)
[2021-05-01] MEDS ORDERED: HYDR-4611 PO (20:07)
[2021-05-01 22:00] VITALS: BP 185/74
[2021-05-01] MEDS: ATORVASTATIN 20 MG TAB PO SCH (22:01)
[2021-05-02 00:30] VITALS: BP 147/47
[2021-05-02 05:00] VITALS: BP 157/44
[2021-05-02] MEDS: BUMETANIDE 2.5mg/10ml (0.25 mg/ml) INJ IV SCH ×2 (06:00→18:25)
[2021-05-02 06:54] LABS: Basophils # (auto) 0 10 ^3/uL (0-0.2); Basophils % (auto) 0.7 % (0.0-2.0); Eosinophils # (auto) 0.3 10 ^3/uL (0-0.8); Eosinophils % (auto) 6.2 % (0.0-7.0); Hematocrit 23.9 % (41.0-53.0); Lymphocytes # (auto) 0.7 10 ^3/uL (0.4-5.4); Lymphocytes % (auto) 12.9 % (10.0-50.0); Mean Corpuscular Hemoglobin 30.5 pg (28.0-32.0); Mean Corpuscular Hgb Conc. 33.5 g/dL (32.0-36.0); Monocytes # (auto) 0.9 10 ^3/uL (0-1.3); Monocytes % (auto) 16.2 % (0.0-12.0); Neutrophils # (auto) 3.4 10 ^3/uL (1.6-8.6); Nucleated Red Blood Cells % 0.1 %; Red Blood Cells 2.62 10^6/uL (4.5-5.90); Red Cell Distribution Width 21.2 % (11.8-14.3); White Blood Cell 5.3 10^3/uL (4.4-10.8)
[2021-05-02 07:02] LABS: Calcium 9.1 mg/dL (8.5-10.1); Potassium 4.8 mmol/L (3.5-5.1)
[2021-05-02 07:05] LABS: BUN/Creatinine Ratio 4.5
[2021-05-02] MEDS: SEVELAMER 800 MG TAB PO SCH ×3 (08:00→18:25)
[2021-05-02] MEDS: FLORASTOR (S. BOULARDII) 250 MG CAP PO SCH (10:00)
[2021-05-02] MEDS: SACUBITRIL VALSARTAN PO SCH ×2 (10:00→22:00)
[2021-05-02] MEDS: HEPARIN SODIUM (PORCINE) 5000 UNITS/ML 1ML VIAL SC SCH ×2 (10:00→23:05)
[2021-05-02] MEDS: ISOSORBIDE MONONITRATE 20 MG TAB PO SCH ×3 (10:00→23:08)
[2021-05-02] MEDS: hydrALAZINE HCL 25 MG TAB PO SCH ×2 (10:00→22:51)
[2021-05-02] MEDS: CALCITRIOL 0.25 MCG CAP PO SCH (10:00)
[2021-05-02] MEDS: CEFTRIAXONE SODIUM 2 GM in D5W 5% 50 ML IV SCH (10:00)
[2021-05-02] MEDS ORDERED: ceFAZolin 1GM/50ML 100 ML IV ONE (10:03)
[2021-05-02] MEDS ORDERED: fentaNYL CITRATE 100 MCG/2 ML VL ONE (10:08)
[2021-05-02] MEDS ORDERED: DexAMETHasone SOD PHOS 10MG/1ML VIAL INJ ONE (10:10)
[2021-05-02] MEDS ORDERED: MIDAZOLAM HCL 2MG/2ML 2ml VIAL (1mg/ml) ONE ×2 (10:10→11:06)
[2021-05-02] MEDS ORDERED: LABETALOL HCL 5 MG/ML 4ML SYRINGE IV PRN (11:00)
[2021-05-02] MEDS ORDERED: ACCU-CHEK COMFORT CURVE STRIP VI ONE (11:00)
[2021-05-02] MEDS ORDERED: MIDAZOLAM HCL 2MG/2ML 2ml VIAL (1mg/ml) IV PRN (11:00)
[2021-05-02] MEDS ORDERED: HYDROmorphone HCL 2 MG/ML VL IV PRN (11:00)
[2021-05-02] MEDS ORDERED: ONDANSETRON HCL 4 MG/2 ML VIAL IV PRN (11:00)
[2021-05-02] MEDS ORDERED: MORPHINE SULFATE 4 MG/ML SYR/VIAL IV PRN (11:00)
[2021-05-02] MEDS ORDERED: ePHEDrine SULFATE 50 MG/ML AMP IV PRN (11:00)
[2021-05-02] MEDS ORDERED: PROPOFOL 10 MG/ML 20 ML IV ONE (11:06)
[2021-05-02] MEDS ORDERED: SODIUM CHL 0.9% 1000 ML BAG XX ONE (14:45)
[2021-05-02 21:30] VITALS: BP 153/48
[2021-05-02] MEDS: ATORVASTATIN 20 MG TAB PO SCH (22:52)
[2021-05-02] MEDS: ACETAMINOPHEN 325 MG TAB PO PRN (23:33)
[2021-05-03] VITALS (8 sets, daily range): BP systolic 156–180; BP diastolic 41–113
[2021-05-03] MEDS: cloNIDine HCL 0.1 MG TAB PO PRN (01:05)
[2021-05-03] MEDS: BUMETANIDE 2.5mg/10ml (0.25 mg/ml) INJ IV SCH ×2 (06:15→17:28)
[2021-05-03 06:16] LABS: Basophils # (auto) 0 10 ^3/uL (0-0.2); Basophils % (auto) 0.1 % (0.0-2.0); Eosinophils # (auto) 0 10 ^3/uL (0-0.8); Hematocrit 25.2 % (41.0-53.0); Hemoglobin 8.3 g/dL (13.5-17.5); Lymphocytes # (auto) 0.8 10 ^3/uL (0.4-5.4); Lymphocytes % (auto) 30.5 % (10.0-50.0); Mean Corpuscular Hemoglobin 30.2 pg (28.0-32.0); Mean Corpuscular Hgb Conc. 32.8 g/dL (32.0-36.0); Mean Corpuscular Volume 92.3 fL (80.0-100.0); Monocytes # (auto) 0.3 10 ^3/uL (0-1.3); Monocytes % (auto) 11.4 % (0.0-12.0); Neutrophils # (auto) 1.5 10 ^3/uL (1.6-8.6); Nucleated Red Blood Cells % 0.1 %; Red Blood Cells 2.73 10^6/uL (4.5-5.90); White Blood Cell 2.6 10^3/uL (4.4-10.8)
[2021-05-03 06:17] LABS: Red Cell Distribution Width 21.7 % (11.8-14.3)
[2021-05-03 06:37] LABS: BUN/Creatinine Ratio 4.4; Calcium 9.1 mg/dL (8.5-10.1); Potassium 4.9 mmol/L (3.5-5.1)
[2021-05-03] MEDS: SEVELAMER 800 MG TAB PO SCH ×3 (08:00→17:44)
[2021-05-03] MEDS: SACUBITRIL VALSARTAN PO SCH ×2 (11:33→22:00)
[2021-05-03] MEDS: CEFTRIAXONE SODIUM 2 GM in D5W 5% 50 ML IV SCH (11:34)
[2021-05-03] MEDS: ISOSORBIDE MONONITRATE 20 MG TAB PO SCH ×2 (11:35→22:00)
[2021-05-03] MEDS: FLORASTOR (S. BOULARDII) 250 MG CAP PO SCH (11:35)
[2021-05-03] MEDS: hydrALAZINE HCL 25 MG TAB PO SCH ×2 (11:35→22:00)
[2021-05-03] MEDS: CALCITRIOL 0.25 MCG CAP PO SCH (11:36)
[2021-05-03] MEDS: HEPARIN SODIUM (PORCINE) 5000 UNITS/ML 1ML VIAL SC SCH ×2 (11:36→22:00)
[2021-05-03] MEDS: DexAMETHasone SOD PHOS 10MG/1ML VIAL INJ IV ONE ×2 (13:04→13:13)
[2021-05-03] MEDS ORDERED: VANCOMYCIN 500 MG in D5W 5% 100 ML IV ONE (16:00)
[2021-05-03] MEDS: LABETALOL HCL 5 MG/ML 4ML SYRINGE IV PRN (17:30)
[2021-05-03] MEDS: ACETAMINOPHEN 325 MG TAB PO PRN (17:31)
[2021-05-03] MEDS: ATORVASTATIN 20 MG TAB PO SCH (22:00)
[2021-05-04] VITALS (7 sets, daily range): BP systolic 140–176; BP diastolic 42–75
[2021-05-04] MEDS: BUMETANIDE 2.5mg/10ml (0.25 mg/ml) INJ IV SCH ×2 (05:33→18:21)
[2021-05-04 06:59] LABS: Basophils # (auto) 0 10 ^3/uL (0-0.2); Eosinophils # (auto) 0 10 ^3/uL (0-0.8); Hematocrit 25.5 % (41.0-53.0); Hemoglobin 8.5 g/dL (13.5-17.5); Lymphocytes # (auto) 0.8 10 ^3/uL (0.4-5.4); Lymphocytes % (auto) 22.5 % (10.0-50.0); Mean Corpuscular Hemoglobin 30.7 pg (28.0-32.0); Mean Corpuscular Hgb Conc. 33.4 g/dL (32.0-36.0); Mean Corpuscular Volume 91.8 fL (80.0-100.0); Monocytes # (auto) 0.3 10 ^3/uL (0-1.3); Monocytes % (auto) 7.8 % (0.0-12.0); Neutrophils # (auto) 2.6 10 ^3/uL (1.6-8.6); Neutrophils % (auto) 69.7 % (37.0-80.0); Red Blood Cells 2.78 10^6/uL (4.5-5.90); Red Cell Distribution Width 21.2 % (11.8-14.3); White Blood Cell 3.7 10^3/uL (4.4-10.8)
[2021-05-04 07:22] LABS: Calcium 9.1 mg/dL (8.5-10.1); Potassium 4.9 mmol/L (3.5-5.1)
[2021-05-04 07:23] LABS: BUN/Creatinine Ratio 5.2
[2021-05-04] MEDS: SEVELAMER 800 MG TAB PO SCH ×3 (08:37→18:00)
[2021-05-04] MEDS: SACUBITRIL-VALSARTAN 24mg/26mg TAB PO SCH ×2 (10:00→21:41)
[2021-05-04] MEDS ORDERED: DexAMETHasone SOD PHOS 10MG/1ML VIAL INJ IV SCH (10:00)
[2021-05-04] MEDS: ISOSORBIDE MONONITRATE 20 MG TAB PO SCH ×2 (10:00→21:41)
[2021-05-04] MEDS: hydrALAZINE HCL 25 MG TAB PO SCH ×2 (10:00→21:41)
[2021-05-04] MEDS: HEPARIN SODIUM (PORCINE) 5000 UNITS/ML 1ML VIAL SC SCH (10:32)
[2021-05-04] MEDS: CALCITRIOL 0.25 MCG CAP PO SCH (10:44)
[2021-05-04] MEDS: FLORASTOR (S. BOULARDII) 250 MG CAP PO SCH (10:44)
[2021-05-04] MEDS: CEFTRIAXONE SODIUM 2 GM in D5W 5% 50 ML IV SCH (11:12)
[2021-05-04] MEDS ORDERED: SODIUM CHL 0.9% 1000 ML BAG XX ONE (11:30)
[2021-05-04] MEDS ORDERED: ONDANSETRON HCL 4 MG/2 ML VIAL IV PRN (16:15)
[2021-05-04] MEDS ORDERED: PANTOPRAZOLE 40 MG/10 ML VIAL INJ IV ONE (16:30)
[2021-05-04] MEDS: PANTOPRAZOLE 40 MG/10 ML VIAL INJ IV SCH (21:41)
[2021-05-04] MEDS: ATORVASTATIN 20 MG TAB PO SCH (21:42)
[2021-05-04] MEDS: hydrALAZINE HCL 20 MG/ML VL IV PRN (21:42)
[2021-05-05 04:50] VITALS: BP 135/45
[2021-05-05 06:04] LABS: Basophils # (auto) 0 10 ^3/uL (0-0.2); Basophils % (auto) 0.1 % (0.0-2.0); Eosinophils # (auto) 0 10 ^3/uL (0-0.8); Eosinophils % (auto) 0.5 % (0.0-7.0); Hematocrit 29.2 % (41.0-53.0); Hemoglobin 9.5 g/dL (13.5-17.5); Lymphocytes # (auto) 0.9 10 ^3/uL (0.4-5.4); Mean Corpuscular Hemoglobin 31.6 pg (28.0-32.0); Mean Corpuscular Hgb Conc. 32.4 g/dL (32.0-36.0); Mean Corpuscular Volume 97.6 fL (80.0-100.0); Monocytes # (auto) 0.7 10 ^3/uL (0-1.3); Monocytes % (auto) 9.6 % (0.0-12.0); Neutrophils # (auto) 5.1 10 ^3/uL (1.6-8.6); Neutrophils % (auto) 75.8 % (37.0-80.0); Nucleated Red Blood Cells % 0.1 %; White Blood Cell 6.8 10^3/uL (4.4-10.8)
[2021-05-05 06:14] LABS: Red Cell Distribution Width 21.9 % (11.8-14.3)
[2021-05-05 06:29] LABS: Potassium 4.6 mmol/L (3.5-5.1)
[2021-05-05 06:31] LABS: BUN/Creatinine Ratio 4.7
[2021-05-05] MEDS: BUMETANIDE 2.5mg/10ml (0.25 mg/ml) INJ IV SCH ×2 (06:39→18:45)
[2021-05-05] MEDS: SEVELAMER 800 MG TAB PO SCH ×3 (08:00→18:00)
[2021-05-05 09:00] VITALS: BP 144/40
[2021-05-05] MEDS: PANTOPRAZOLE 40 MG/10 ML VIAL INJ IV SCH ×2 (09:35→21:48)
[2021-05-05] MEDS: ISOSORBIDE MONONITRATE 20 MG TAB PO SCH ×2 (10:00→21:49)
[2021-05-05] MEDS: hydrALAZINE HCL 25 MG TAB PO SCH ×2 (10:00→21:48)
[2021-05-05] MEDS: FLORASTOR (S. BOULARDII) 250 MG CAP PO SCH (10:00)
[2021-05-05] MEDS: SACUBITRIL-VALSARTAN 24mg/26mg TAB PO SCH ×2 (10:00→21:49)
[2021-05-05] MEDS: CALCITRIOL 0.25 MCG CAP PO SCH (10:00)
[2021-05-05] MEDS: CEFTRIAXONE SODIUM 2 GM in D5W 5% 50 ML IV SCH (11:39)
[2021-05-05] MEDS: FLUCONAZOLE 200MG/100ML 100 ML IV SCH ×4 (12:30→18:17)
[2021-05-05 13:00] VITALS: BP 142/43
[2021-05-05 17:00] VITALS: BP 143/38
[2021-05-05] MEDS ORDERED: VANCOMYCIN 750mg/250ml 250 ML IV ONE (17:00)
[2021-05-05 19:40] VITALS: BP 172/42
[2021-05-05 21:07] VITALS: BP 163/68
[2021-05-05] MEDS: ATORVASTATIN 20 MG TAB PO SCH (21:49)
[2021-05-05] MEDS: hydrALAZINE HCL 20 MG/ML VL IV PRN (21:50)
[2021-05-06 03:57] VITALS: BP 129/49
[2021-05-06] MEDS: BUMETANIDE 2.5mg/10ml (0.25 mg/ml) INJ IV SCH (07:15)
[2021-05-06] MEDS: SEVELAMER 800 MG TAB PO SCH ×3 (08:00→18:35)
[2021-05-06 08:34] VITALS: BP 177/45
[2021-05-06] MEDS: hydrALAZINE HCL 25 MG TAB PO SCH ×2 (10:00→22:00)
[2021-05-06] MEDS: ISOSORBIDE MONONITRATE 20 MG TAB PO SCH ×2 (10:00→22:00)
[2021-05-06] MEDS: SACUBITRIL-VALSARTAN 24mg/26mg TAB PO SCH ×2 (10:00→22:00)
[2021-05-06] MEDS: LABETALOL HCL 5 MG/ML 4ML SYRINGE IV PRN (10:00)
[2021-05-06] MEDS: FLORASTOR (S. BOULARDII) 250 MG CAP PO SCH (10:00)
[2021-05-06] MEDS: CALCITRIOL 0.25 MCG CAP PO SCH (10:00)
[2021-05-06] MEDS: FLUCONAZOLE 200MG/100ML 100 ML IV SCH ×2 (10:17→11:45)
[2021-05-06] MEDS: PANTOPRAZOLE 40 MG/10 ML VIAL INJ IV SCH ×2 (10:17→22:03)
[2021-05-06] MEDS: CEFTRIAXONE SODIUM 2 GM in D5W 5% 50 ML IV SCH (11:10)
[2021-05-06 13:00] VITALS: BP 154/53
[2021-05-06 17:00] VITALS: BP 145/73
[2021-05-06 21:55] VITALS: BP 134/40
[2021-05-06] MEDS: ATORVASTATIN 20 MG TAB PO SCH (22:04)
[2021-05-07] MEDS: ACETAMINOPHEN 325 MG TAB PO PRN (00:10)
[2021-05-07 05:00] VITALS: BP 187/53
[2021-05-07] MEDS: hydrALAZINE HCL 20 MG/ML VL IV PRN (05:54)
[2021-05-07 08:27] VITALS: BP 158/41
[2021-05-07] MEDS: SEVELAMER 800 MG TAB PO SCH ×3 (08:35→17:28)
[2021-05-07] MEDS: PANTOPRAZOLE 40 MG/10 ML VIAL INJ IV SCH ×2 (08:35→22:00)
[2021-05-07] MEDS: FLORASTOR (S. BOULARDII) 250 MG CAP PO SCH (08:35)
[2021-05-07] MEDS: CALCITRIOL 0.25 MCG CAP PO SCH (08:36)
[2021-05-07] MEDS: CEFTRIAXONE SODIUM 2 GM in D5W 5% 50 ML IV SCH (08:42)
[2021-05-07] MEDS: hydrALAZINE HCL 25 MG TAB PO SCH ×2 (08:46→22:00)
[2021-05-07] MEDS: FLUCONAZOLE 200MG/100ML 100 ML IV SCH ×2 (09:24→10:37)
[2021-05-07 12:29] VITALS: BP 170/68
[2021-05-07] MEDS: cloNIDine HCL 0.1 MG TAB PO PRN (12:52)
[2021-05-07 16:44] VITALS: BP 152/63
[2021-05-07 22:00] VITALS: BP 157/44
[2021-05-07] MEDS: ATORVASTATIN 20 MG TAB PO SCH (22:00)
[2021-05-07] MEDS: ISOSORBIDE MONONITRATE 20 MG TAB PO SCH (22:00)
[2021-05-08 05:00] VITALS: BP 145/49
[2021-05-08 07:27] LABS: BUN/Creatinine Ratio 5.8; Calcium 8.7 mg/dL (8.5-10.1)
[2021-05-08] MEDS: SEVELAMER 800 MG TAB PO SCH ×3 (08:00→17:55)
[2021-05-08] MEDS: hydrALAZINE HCL 25 MG TAB PO SCH ×2 (08:15→21:02)
[2021-05-08] MEDS: PANTOPRAZOLE 40 MG/10 ML VIAL INJ IV SCH ×2 (08:15→21:02)
[2021-05-08] MEDS: CALCITRIOL 0.25 MCG CAP PO SCH (08:16)
[2021-05-08] MEDS: ISOSORBIDE MONONITRATE 20 MG TAB PO SCH ×2 (08:16→21:03)
[2021-05-08] MEDS: FLORASTOR (S. BOULARDII) 250 MG CAP PO SCH (08:16)
[2021-05-08] MEDS ORDERED: cefTRIAXone 1GM/50ML D5W 0 ML IV ONE (08:19)
[2021-05-08 08:33] VITALS: BP 151/64
[2021-05-08] MEDS: CEFTRIAXONE SODIUM 2 GM in D5W 5% 50 ML IV SCH (09:56)
[2021-05-08] MEDS: FLUCONAZOLE 200MG/100ML 100 ML IV SCH ×2 (11:00→11:17)
[2021-05-08 12:30] VITALS: BP 153/45
[2021-05-08 17:00] VITALS: BP 110/73
[2021-05-08 20:00] VITALS: BP 150/82
[2021-05-08] MEDS: ATORVASTATIN 20 MG TAB PO SCH (21:03)
[2021-05-08 22:00] VITALS: BP 156/84
[2021-05-09 05:00] VITALS: BP 129/79
[2021-05-09] MEDS ORDERED: SODIUM CHL 0.9% 1000 ML BAG XX ONE (07:00)
[2021-05-09 07:55] LABS: Hematocrit 25.7 % (41.0-53.0); Hemoglobin 8.7 g/dL (13.5-17.5)
[2021-05-09] MEDS: SEVELAMER 800 MG TAB PO SCH ×3 (08:00→17:58)
[2021-05-09 08:20] VITALS: BP 132/86
[2021-05-09 08:34] LABS: % Iron Saturation 28.9 % (20-55)
[2021-05-09] MEDS: PANTOPRAZOLE 40 MG/10 ML VIAL INJ IV SCH ×2 (09:30→20:41)
[2021-05-09] MEDS: hydrALAZINE HCL 25 MG TAB PO SCH ×2 (09:31→20:41)
[2021-05-09] MEDS: CALCITRIOL 0.25 MCG CAP PO SCH (09:31)
[2021-05-09] MEDS: ISOSORBIDE MONONITRATE 20 MG TAB PO SCH ×2 (09:31→20:41)
[2021-05-09] MEDS: FLORASTOR (S. BOULARDII) 250 MG CAP PO SCH (09:31)
[2021-05-09] MEDS ORDERED: FLUCONAZOLE 100 MG TAB PO SCH (10:00)
[2021-05-09 13:24] VITALS: BP 128/80
[2021-05-09 15:57] VITALS: BP 132/85
[2021-05-09] MEDS: MICAFUNGIN SODIUM 100 MG in SODIUM CHL 0.9% 100 ML IV SCH ×2 (17:30→20:40)
[2021-05-09 17:50] LABS: Basophils # (auto) 0 10 ^3/uL (0-0.2); Basophils % (auto) 0.6 % (0.0-2.0); Eosinophils # (auto) 0.3 10 ^3/uL (0-0.8); Eosinophils % (auto) 4.2 % (0.0-7.0); Hematocrit 26.1 % (41.0-53.0); Hemoglobin 8.9 g/dL (13.5-17.5); Lymphocytes # (auto) 0.9 10 ^3/uL (0.4-5.4); Mean Corpuscular Hemoglobin 31.3 pg (28.0-32.0); Mean Corpuscular Hgb Conc. 33.9 g/dL (32.0-36.0); Mean Corpuscular Volume 92.2 fL (80.0-100.0); Monocytes # (auto) 0.7 10 ^3/uL (0-1.3); Neutrophils # (auto) 5.1 10 ^3/uL (1.6-8.6); Neutrophils % (auto) 72.2 % (37.0-80.0); Nucleated Red Blood Cells % 0.1 %; Red Blood Cells 2.83 10^6/uL (4.5-5.90)
[2021-05-09 17:52] LABS: Red Cell Distribution Width 21.8 % (11.8-14.3)
[2021-05-09] MEDS: HALOPERIDOL LACTATE 5 MG/ML INJ VIAL IM PRN (18:03)
[2021-05-09 18:12] LABS: INR 1.12 (0.9-1.15); Partial Thromboplastin Time 37.1 sec (23.6-33.0)
[2021-05-09 20:00] VITALS: BP 150/82
[2021-05-09] MEDS: ATORVASTATIN 20 MG TAB PO SCH (20:42)
[2021-05-09] MEDS ORDERED: EPOETIN ALFA-EPBX 10,000 UNIT/1ML VIAL SC ONE (21:00)
[2021-05-09 22:00] VITALS: BP 139/123
[2021-05-10] VITALS (7 sets, daily range): BP systolic 108–150; BP diastolic 33–94
[2021-05-10] MEDS: HALOPERIDOL LACTATE 5 MG/ML INJ VIAL IM PRN ×2 (00:57→21:37)
[2021-05-10 06:56] LABS: BUN/Creatinine Ratio 6.6; Calcium 8.8 mg/dL (8.5-10.1)
[2021-05-10 07:11] LABS: Potassium 5.6 mmol/L (3.5-5.1)
[2021-05-10] MEDS: SEVELAMER 800 MG TAB PO SCH ×3 (08:00→18:00)
[2021-05-10] MEDS: FLORASTOR (S. BOULARDII) 250 MG CAP PO SCH (10:00)
[2021-05-10] MEDS: PANTOPRAZOLE 40 MG/10 ML VIAL INJ IV SCH ×2 (10:00→21:35)
[2021-05-10] MEDS: CALCITRIOL 0.25 MCG CAP PO SCH (10:00)
[2021-05-10] MEDS: hydrALAZINE HCL 25 MG TAB PO SCH ×2 (10:00→21:36)
[2021-05-10] MEDS: ISOSORBIDE MONONITRATE 20 MG TAB PO SCH ×2 (10:00→21:36)
[2021-05-10] MEDS ORDERED: ALBUMIN 25% 100 ML IV ONE (10:45)
[2021-05-10] MEDS ORDERED: SODIUM ZIRCONIUM CYCL 10 GM PAK PO ONE (10:45)
[2021-05-10] MEDS ORDERED: ALBUTEROL SULF 2.5 MG/0.5ML(0.5%) NEB SOLN NEB ONE (10:45)
[2021-05-10] MEDS ORDERED: HALOPERIDOL LACTATE 5 MG/ML INJ VIAL IM ONE (11:30)
[2021-05-10] MEDS: ACETAMINOPHEN 325 MG TAB PO PRN (21:36)
[2021-05-10] MEDS: ATORVASTATIN 20 MG TAB PO SCH (21:36)
[2021-05-11 05:00] VITALS: BP 100/77
[2021-05-11] MEDS: HALOPERIDOL LACTATE 5 MG/ML INJ VIAL IM PRN (06:21)
[2021-05-11] MEDS: SEVELAMER 800 MG TAB PO SCH ×3 (08:00→17:43)
[2021-05-11 08:02] LABS: Calcium 8.7 mg/dL (8.5-10.1); Potassium 4.5 mmol/L (3.5-5.1)
[2021-05-11 08:10] LABS: BUN/Creatinine Ratio 5.6
[2021-05-11] MEDS: FLORASTOR (S. BOULARDII) 250 MG CAP PO SCH (08:10)
[2021-05-11 09:00] VITALS: BP 148/45
[2021-05-11] MEDS: CALCITRIOL 0.25 MCG CAP PO SCH (10:15)
[2021-05-11] MEDS: PANTOPRAZOLE 40 MG/10 ML VIAL INJ IV SCH ×2 (10:15→22:32)
[2021-05-11] MEDS: hydrALAZINE HCL 25 MG TAB PO SCH ×2 (10:15→22:31)
[2021-05-11] MEDS: ISOSORBIDE MONONITRATE 20 MG TAB PO SCH ×2 (10:16→22:32)
[2021-05-11] MEDS: MICAFUNGIN SODIUM 100 MG in SODIUM CHL 0.9% 100 ML IV SCH (10:43)
[2021-05-11] MEDS ORDERED: MIDAZOLAM HCL 2MG/2ML 2ml VIAL (1mg/ml) ONE (11:02)
[2021-05-11] MEDS ORDERED: fentaNYL CITRATE 100 MCG/2 ML VL ONE (11:02)
[2021-05-11] MEDS ORDERED: IOHEXOL 350 MG/ML 100ML IJ ONE (12:41)
[2021-05-11] MEDS ORDERED: LIDOCAINE 2%HCL (LOCAL ANESTH.) INJ 20ML MDV ONE (12:41)
[2021-05-11 13:00] VITALS: BP 137/61
[2021-05-11] MEDS ORDERED: IODIXANOL 320MG/ML 100ML BTL IV ONE (14:12)
[2021-05-11 17:00] VITALS: BP 156/85
[2021-05-11 22:00] VITALS: BP 117/88
[2021-05-11] MEDS: ATORVASTATIN 20 MG TAB PO SCH (22:32)
[2021-05-12] VITALS (11 sets, daily range): BP systolic 125–163; BP diastolic 51–84
[2021-05-12] MEDS: HALOPERIDOL LACTATE 5 MG/ML INJ VIAL IM PRN (00:25)
[2021-05-12 06:48] LABS: Basophils # (auto) 0.1 10 ^3/uL (0-0.2); Basophils % (auto) 0.6 % (0.0-2.0); Eosinophils # (auto) 0.3 10 ^3/uL (0-0.8); Lymphocytes # (auto) 0.6 10 ^3/uL (0.4-5.4); Monocytes # (auto) 1.1 10 ^3/uL (0-1.3); Nucleated Red Blood Cells % 0.1 %
[2021-05-12 06:50] LABS: Hematocrit 17.6 % (41.0-53.0); Lymphocytes % (auto) 7.3 % (10.0-50.0); Mean Corpuscular Hemoglobin 31.8 pg (28.0-32.0); Mean Corpuscular Hgb Conc. 34.7 g/dL (32.0-36.0); Mean Corpuscular Volume 91.6 fL (80.0-100.0); Monocytes % (auto) 12.4 % (0.0-12.0); Neutrophils # (auto) 6.5 10 ^3/uL (1.6-8.6); Neutrophils % (auto) 75.7 % (37.0-80.0); Red Blood Cells 1.92 10^6/uL (4.5-5.90); White Blood Cell 8.6 10^3/uL (4.4-10.8)
[2021-05-12] MEDS ORDERED: SODIUM CHL 0.9% 1000 ML BAG XX ONE (07:00)
[2021-05-12 08:07] LABS: Hemoglobin 6.2 g/dL (13.5-17.5); Red Cell Distribution Width 21.6 % (11.8-14.3)
[2021-05-12] MEDS: SEVELAMER 800 MG TAB PO SCH ×3 (09:06→17:29)
[2021-05-12] MEDS: ISOSORBIDE MONONITRATE 20 MG TAB PO SCH ×2 (09:07→22:32)
[2021-05-12] MEDS: CALCITRIOL 0.25 MCG CAP PO SCH (09:07)
[2021-05-12] MEDS: hydrALAZINE HCL 25 MG TAB PO SCH ×2 (09:07→22:32)
[2021-05-12] MEDS: FLORASTOR (S. BOULARDII) 250 MG CAP PO SCH (09:07)
[2021-05-12] MEDS: PANTOPRAZOLE 40 MG/10 ML VIAL INJ IV SCH ×2 (09:08→22:33)
[2021-05-12] MEDS: MICAFUNGIN SODIUM 100 MG in SODIUM CHL 0.9% 100 ML IV SCH (09:08)
[2021-05-12] MEDS ORDERED: BUMETANIDE 2.5mg/10ml (0.25 mg/ml) INJ IV ONE (18:30)
[2021-05-12] MEDS ORDERED: EPOETIN ALFA-EPBX 4,000 UNIT/ML VIAL SC ONE (21:00)
[2021-05-12] MEDS: ATORVASTATIN 20 MG TAB PO SCH (22:33)
[2021-05-13 05:00] VITALS: BP 153/60
[2021-05-13 05:41] LABS: Hematocrit 25.9 % (41.0-53.0); Hemoglobin 8.9 g/dL (13.5-17.5)
[2021-05-13] MEDS: SEVELAMER 800 MG TAB PO SCH ×2 (08:00→12:16)
[2021-05-13] MEDS: MICAFUNGIN SODIUM 100 MG in SODIUM CHL 0.9% 100 ML IV SCH (08:51)
[2021-05-13] MEDS: FLORASTOR (S. BOULARDII) 250 MG CAP PO SCH (08:52)
[2021-05-13] MEDS: PANTOPRAZOLE 40 MG/10 ML VIAL INJ IV SCH ×2 (08:52→21:26)
[2021-05-13] MEDS: hydrALAZINE HCL 25 MG TAB PO SCH ×2 (08:52→22:23)
[2021-05-13] MEDS: ISOSORBIDE MONONITRATE 20 MG TAB PO SCH ×2 (08:53→22:24)
[2021-05-13] MEDS: CALCITRIOL 0.25 MCG CAP PO SCH (08:53)
[2021-05-13 09:00] VITALS: BP 155/96
[2021-05-13 13:00] VITALS: BP 166/66
[2021-05-13] MEDS: cloNIDine HCL 0.1 MG TAB PO PRN ×2 (13:24→17:32)
[2021-05-13 17:00] VITALS: BP 126/59
[2021-05-13] MEDS: ATORVASTATIN 20 MG TAB PO SCH (21:26)
[2021-05-13 21:56] VITALS: BP 149/69
[2021-05-14] MEDS: HALOPERIDOL LACTATE 5 MG/ML INJ VIAL IM PRN (01:58)
[2021-05-14 04:32] VITALS: BP 138/70
[2021-05-14 08:30] VITALS: BP 136/118
[2021-05-14] MEDS: MICAFUNGIN SODIUM 100 MG in SODIUM CHL 0.9% 100 ML IV SCH (10:00)
[2021-05-14] MEDS: ISOSORBIDE MONONITRATE 20 MG TAB PO SCH ×2 (10:00→21:35)
[2021-05-14] MEDS: CALCITRIOL 0.25 MCG CAP PO SCH (10:00)
[2021-05-14] MEDS: PANTOPRAZOLE 40 MG/10 ML VIAL INJ IV SCH ×2 (11:03→21:34)
[2021-05-14] MEDS: hydrALAZINE HCL 25 MG TAB PO SCH ×2 (11:05→21:35)
[2021-05-14] MEDS: FLORASTOR (S. BOULARDII) 250 MG CAP PO SCH (11:06)
[2021-05-14 12:30] VITALS: BP 158/66
[2021-05-14 17:00] VITALS: BP 154/79
[2021-05-14] MEDS: SEVELAMER 800 MG TAB PO SCH (18:00)
[2021-05-14] MEDS: ATORVASTATIN 20 MG TAB PO SCH (21:34)
[2021-05-14 21:38] VITALS: BP 135/64
[2021-05-15] VITALS (10 sets, daily range): BP systolic 128–168; BP diastolic 51–95
[2021-05-15 06:00] LABS: Basophils # (auto) 0 10 ^3/uL (0-0.2); Basophils % (auto) 0.5 % (0.0-2.0); Eosinophils # (auto) 0.3 10 ^3/uL (0-0.8); Hemoglobin 7.8 g/dL (13.5-17.5)
[2021-05-15 06:04] LABS: Eosinophils % (auto) 3.5 % (0.0-7.0); Lymphocytes # (auto) 0.7 10 ^3/uL (0.4-5.4); Lymphocytes % (auto) 9.1 % (10.0-50.0); Mean Corpuscular Hemoglobin 30.5 pg (28.0-32.0); Mean Corpuscular Hgb Conc. 33.8 g/dL (32.0-36.0); Mean Corpuscular Volume 90.3 fL (80.0-100.0); Monocytes # (auto) 0.7 10 ^3/uL (0-1.3); Monocytes % (auto) 8.9 % (0.0-12.0); Neutrophils # (auto) 6.3 10 ^3/uL (1.6-8.6); Red Blood Cells 2.55 10^6/uL (4.5-5.90); White Blood Cell 8.1 10^3/uL (4.4-10.8)
[2021-05-15] MEDS: SEVELAMER 800 MG TAB PO SCH ×2 (08:00→12:30)
[2021-05-15] MEDS: MICAFUNGIN SODIUM 100 MG in SODIUM CHL 0.9% 100 ML IV SCH (10:40)
[2021-05-15] MEDS ORDERED: SODIUM CHL 0.9% 1000 ML BAG XX ONE (10:45)
[2021-05-15 11:36] LABS: INR 1.19 (0.9-1.15); Partial Thromboplastin Time 43.1 sec (23.6-33.0)
[2021-05-15] MEDS: hydrALAZINE HCL 25 MG TAB PO SCH ×2 (12:31→21:07)
[2021-05-15] MEDS: FLORASTOR (S. BOULARDII) 250 MG CAP PO SCH (12:31)
[2021-05-15] MEDS: PANTOPRAZOLE 40 MG/10 ML VIAL INJ IV SCH ×2 (12:31→21:06)
[2021-05-15] MEDS: ISOSORBIDE MONONITRATE 20 MG TAB PO SCH ×2 (12:32→21:07)
[2021-05-15] MEDS: CALCITRIOL 0.25 MCG CAP PO SCH (12:32)
[2021-05-15] MEDS ORDERED: LIDOCAINE 1% (LOCAL ANESTH.) PF 5ml SDV ID ONE (15:15)
[2021-05-15] MEDS ORDERED: cloNIDine HCL 0.1 MG TAB PO PRN (17:15)
[2021-05-15] MEDS: ATORVASTATIN 20 MG TAB PO SCH (21:07)
[2021-05-15] MEDS: SODIUM CHLOR 0.9% PF (SALINE LOCK) 10ML VIAL/SYR IV SCH (21:07)
[2021-05-16] MEDS: SEVELAMER 800 MG TAB PO SCH ×4 (03:25→18:37)
[2021-05-16 05:00] VITALS: BP_SYST 114; BP_SYST 156; BP_DIAS 70; BP_DIAS 92
[2021-05-16 06:10] LABS: Basophils # (auto) 0.1 10 ^3/uL (0-0.2); Basophils % (auto) 0.6 % (0.0-2.0); Eosinophils # (auto) 0.4 10 ^3/uL (0-0.8); Eosinophils % (auto) 4.3 % (0.0-7.0); Hematocrit 26.4 % (41.0-53.0); Hemoglobin 9.1 g/dL (13.5-17.5); Lymphocytes # (auto) 0.8 10 ^3/uL (0.4-5.4); Lymphocytes % (auto) 9.4 % (10.0-50.0); Mean Corpuscular Hemoglobin 30.4 pg (28.0-32.0); Mean Corpuscular Hgb Conc. 34.3 g/dL (32.0-36.0); Mean Corpuscular Volume 88.7 fL (80.0-100.0); Monocytes # (auto) 0.7 10 ^3/uL (0-1.3); Monocytes % (auto) 8.3 % (0.0-12.0); Neutrophils # (auto) 6.7 10 ^3/uL (1.6-8.6); Neutrophils % (auto) 77.4 % (37.0-80.0); Nucleated Red Blood Cells % 0.2 %; Red Blood Cells 2.98 10^6/uL (4.5-5.90); Red Cell Distribution Width 18.6 % (11.8-14.3); White Blood Cell 8.6 10^3/uL (4.4-10.8)
[2021-05-16 08:34] VITALS: BP 156/67
[2021-05-16] MEDS: PANTOPRAZOLE 40 MG/10 ML VIAL INJ IV SCH ×2 (10:12→21:52)
[2021-05-16] MEDS: MICAFUNGIN SODIUM 100 MG in SODIUM CHL 0.9% 100 ML IV SCH (10:12)
[2021-05-16] MEDS: SODIUM CHLOR 0.9% PF (SALINE LOCK) 10ML VIAL/SYR IV SCH ×2 (10:12→21:52)
[2021-05-16] MEDS: FLORASTOR (S. BOULARDII) 250 MG CAP PO SCH (10:13)
[2021-05-16] MEDS: hydrALAZINE HCL 25 MG TAB PO SCH ×2 (10:13→21:52)
[2021-05-16] MEDS: ISOSORBIDE MONONITRATE 20 MG TAB PO SCH ×2 (10:14→21:52)
[2021-05-16] MEDS: CALCITRIOL 0.25 MCG CAP PO SCH (10:14)
[2021-05-16 11:54] VITALS: BP 159/73
[2021-05-16] MEDS: HALOPERIDOL LACTATE 5 MG/ML INJ VIAL IM PRN (15:36)
[2021-05-16 16:43] VITALS: BP 167/71
[2021-05-16 21:33] VITALS: BP 162/86
[2021-05-16] MEDS: ATORVASTATIN 20 MG TAB PO SCH (21:51)
[2021-05-17] MEDS: HALOPERIDOL LACTATE 5 MG/ML INJ VIAL IM PRN (01:20)
[2021-05-17 05:22] VITALS: BP 158/93
[2021-05-17] MEDS ORDERED: SODIUM CHL 0.9% 1000 ML BAG XX ONE (07:00)
[2021-05-17] MEDS: SEVELAMER 800 MG TAB PO SCH ×3 (08:00→17:38)
[2021-05-17] MEDS: hydrALAZINE HCL 25 MG TAB PO SCH ×2 (08:29→22:14)
[2021-05-17] MEDS: FLORASTOR (S. BOULARDII) 250 MG CAP PO SCH (08:30)
[2021-05-17] MEDS: CALCITRIOL 0.25 MCG CAP PO SCH (08:30)
[2021-05-17] MEDS: ISOSORBIDE MONONITRATE 20 MG TAB PO SCH ×2 (08:30→22:13)
[2021-05-17 09:00] VITALS: BP 160/86
[2021-05-17] MEDS: SODIUM CHLOR 0.9% PF (SALINE LOCK) 10ML VIAL/SYR IV SCH ×2 (11:41→22:00)
[2021-05-17] MEDS: MICAFUNGIN SODIUM 100 MG in SODIUM CHL 0.9% 100 ML IV SCH (11:41)
[2021-05-17] MEDS: PANTOPRAZOLE 40 MG/10 ML VIAL INJ IV SCH ×2 (11:42→22:14)
[2021-05-17 13:00] VITALS: BP 156/64
[2021-05-17 17:00] VITALS: BP 154/51
[2021-05-17] MEDS ORDERED: EPOETIN ALFA-EPBX 10,000 UNIT/1ML VIAL SC ONE (21:00)
[2021-05-17 21:52] VITALS: BP 159/64
[2021-05-17] MEDS: ATORVASTATIN 20 MG TAB PO SCH (22:14)
[2021-05-18 05:00] VITALS: BP 142/90
[2021-05-18 08:00] VITALS: BP 146/103
[2021-05-18] MEDS: SEVELAMER 800 MG TAB PO SCH (08:00)
[2021-05-19] MEDS ORDERED: SODIUM CHL 0.9% 1000 ML BAG XX ONE (07:00)
[2021-05-19] MEDS ORDERED: EPOETIN ALFA-EPBX 4,000 UNIT/ML VIAL SC ONE (21:00)
== END 2021-05-18 10:00 | DRG 711 ==
LOC: EDBD 02:02 → ER 02:02 → TELE 12:33 → TELE-WESTW 18:50 → EAST 05-08 15:36 → TELE-E-ADS 05-14 20:22
PROVIDERS: ADMIT Hospitalist; ATTEND Internal Medicine
PROC: 30233N1 Transfusion of Nonautologous Red Blood Cells into Peripheral Vein, Percutaneous Approach (ICD-10-PCS; 2021-04-27)
PROC: 5A1D70Z Performance of Urinary Filtration, Intermittent, Less than 6 Hours Per Day (ICD-10-PCS; 2021-04-28)
PROC: 5A1D70Z Performance of Urinary Filtration, Intermittent, Less than 6 Hours Per Day (ICD-10-PCS; 2021-04-30)
PROC: 5A1D70Z Performance of Urinary Filtration, Intermittent, Less than 6 Hours Per Day (ICD-10-PCS; 2021-05-02)
PROC: 0JBL0ZZ Excision of Right Upper Leg Subcutaneous Tissue and Fascia, Open Approach (ICD-10-PCS; 2021-05-02)
PROC: 5A1D70Z Performance of Urinary Filtration, Intermittent, Less than 6 Hours Per Day (ICD-10-PCS; 2021-05-04)
PROC: 5A1D70Z Performance of Urinary Filtration, Intermittent, Less than 6 Hours Per Day (ICD-10-PCS; 2021-05-06)
PROC: 057Y3ZZ Dilation of Upper Vein, Percutaneous Approach (ICD-10-PCS; 2021-05-09)
PROC: 05HB33Z Insertion of Infusion Device into Right Basilic Vein, Percutaneous Approach (ICD-10-PCS; 2021-05-09)
PROC: B54MZZA Ultrasonography of Right Upper Extremity Veins, Guidance (ICD-10-PCS; 2021-05-09)
PROC: 5A1D70Z Performance of Urinary Filtration, Intermittent, Less than 6 Hours Per Day (ICD-10-PCS; 2021-05-10)
PROC: B51W1ZZ Fluoroscopy of Dialysis Shunt/Fistula using Low Osmolar Contrast (ICD-10-PCS; 2021-05-11)
PROC: 5A1D70Z Performance of Urinary Filtration, Intermittent, Less than 6 Hours Per Day (ICD-10-PCS; 2021-05-12)
PROC: 5A1D70Z Performance of Urinary Filtration, Intermittent, Less than 6 Hours Per Day (ICD-10-PCS; principal; 2021-05-15)
DX: T81.41XA Infection following a procedure, superficial incisional surgical site, initial encounter (principal); I50.33 Acute on chronic diastolic (congestive) heart failure; G92.9 Unspecified toxic encephalopathy; J96.01 Acute respiratory failure with hypoxia; J96.02 Acute respiratory failure with hypercapnia; U07.1 COVID-19; E44.0 Moderate protein-calorie malnutrition; T81.30XA Disruption of wound, unspecified, initial encounter; Z66 Do not resuscitate; L76.22 Postprocedural hemorrhage of skin and subcutaneous tissue following other procedure; N18.6 End stage renal disease; I16.1 Hypertensive emergency; Z99.2 Dependence on renal dialysis; D64.9 Anemia, unspecified; M1A.9XX0 Chronic gout, unspecified, without tophus (tophi); D62 Acute posthemorrhagic anemia; D63.1 Anemia in chronic kidney disease; E87.5 Hyperkalemia; E11.22 Type 2 diabetes mellitus with diabetic chronic kidney disease; E78.5 Hyperlipidemia, unspecified; F03.90 Unspecified dementia, unspecified severity, without behavioral disturbance, psychotic disturbance, mood disturbance, and anxiety; F17.200 Nicotine dependence, unspecified, uncomplicated; F32.9 Major depressive disorder, single episode, unspecified; I13.2 Hypertensive heart and chronic kidney disease with heart failure and with stage 5 chronic kidney disease, or end stage renal disease; M19.90 Unspecified osteoarthritis, unspecified site; Z96.641 Presence of right artificial hip joint; Y83.8 Other surgical procedures as the cause of abnormal reaction of the patient, or of later complication, without mention of misadventure at the time of the procedure; J44.0 Chronic obstructive pulmonary disease with (acute) lower respiratory infection; Z80.0 Family history of malignant neoplasm of digestive organs; Z80.42 Family history of malignant neoplasm of prostate; Z80.1 Family history of malignant neoplasm of trachea, bronchus and lung; Z80.7 Family history of other malignant neoplasms of lymphoid, hematopoietic and related tissues; Z86.14 Personal history of Methicillin resistant Staphylococcus aureus infection; Y92.89 Other specified places as the place of occurrence of the external cause; Z85.038 Personal history of other malignant neoplasm of large intestine; Z85.46 Personal history of malignant neoplasm of prostate; Z85.118 Personal history of other malignant neoplasm of bronchus and lung
CPT/HCPCS: 36415; 36901; 37246; 70450; 70496; 70498; 71045; 73706; 76870; 76942; 80048; 80053; 80202; 82306; 82728; 83540; 83550; 83605; 83735; 83880; 84100; 84132; 84484; 84550; 85014; 85018; 85025; 85379; 85610; 85652; 85730; 86141; 86850; 86900; 86901; 86920; 87040; 87070; 87075; 87077; 87081; 87205; 87340; 87426; 90935; 93005; 94760; 96365; 96367; 96368; 96375; 96376; 97110; 97116; 97163; 97530; 99152; 99153; A4565; C9113; G0378; J0690; J0696; J1100; J1450; J2248; J2250; J2405; J2704; J3490; J7060; P9047; Q9967